=== PATIENT | male | born 1970 | race Caucasian/White ===

== ENCOUNTER 2020-02-03 10:38 | Outpatient (REF) | payer OTHER, SELFPAY ==
--- NOTE | 2020-02-03 11:06 | XR_ITS ---
EXAMINATION: XR LUMBOSACRAL SPINE WITH OBLIQUES CLINICAL INFORMATION: Low back pain COMPARISON: None TECHNIQUE: AP, both oblique, and lateral views of the lumbar spine. Lateral view of the lumbosacral junction. Lateral flexion and extension views. FINDINGS: Normal alignment and lumbar lordosis with mild multilevel degenerative disc disease and mild facet arthrosis at the lower lumbar levels. No fracture. No spondylolysis or spondylolisthesis. No abnormal motion on the flexion and extension views. IMPRESSION: Mild multilevel degenerative disc disease and facet arthrosis.
== END 2020-02-03 10:39 | disposition home or self-care (01) ==
LOC: HO.LABR 10:38
PROVIDERS: PCP Family Medicine; Visit Provider Physical Medicine & Rehabilitation
DX: M47.816 Spondylosis without myelopathy or radiculopathy, lumbar region (principal)
CPT/HCPCS: 72114

== ENCOUNTER 2020-04-07 17:56 | Outpatient (REF) | payer OTHER, SELFPAY ==
--- NOTE | 2020-04-07 17:59 | MR_ITS ---
EXAMINATION: MR KNEE WITHOUT CONTRAST, RIGHT CLINICAL INFORMATION: Fall at work, history of ACL repair, feels clicking with flexion-extension. COMPARISON: Radiograph dated 09/20/2014. TECHNIQUE: MRI of the knee without contrast was performed using routine sequences on a high-field scanner. FINDINGS: MENISCI: Medial Meniscus: There is a high-grade radial component to a complex tear of the posterior horn near the root insertion. This tear is age-indeterminate, potentially chronic. There is a second radial component of the tear near the junction of the posterior horn and body which extends through the inner two thirds of the meniscal cross-section and may be more acute to subacute. Meniscal body is partially extruded. Lateral Meniscus: Posterior horn is diminutive, possibly due to prior partial meniscectomy. The majority of the posterior root insertion appears chronically torn. The attachment to the posterior meniscal femoral ligament remains intact. Meniscal body is partially extruded. The anterior horn of the lateral meniscus is also diminutive, potentially related to a chronic tear. LIGAMENTS: Cruciate: There is a large ossific spur at the lateral aspect of the intercondylar notch which produces mass effect upon the few remaining fibers of the ACL graft. These graft fibers are distorted, displaced posteromedially. The graft appears attenuated, likely due to chronic degeneration or partial tearing. PCL is intact. Collateral: Intact. EXTENSOR MECHANISM: Susceptibility artifact around the patellar tendon is likely due to chronic changes of graft harvesting. Patellar tendon is otherwise unremarkable. Quadriceps tendon is normal. ARTICULAR CARTILAGE/BONE: Patellofemoral Compartment: There is a 1.2 x 0.6 cm area of full-thickness chondral fissuring and chondral delamination at the lateral patellar facet near the median ridge with underlying marrow edema and articular cortical irregularity. Additional full-thickness chondral fissuring is present at the medial patellar facet with underlying marrow edema. There are small to moderate-sized marginal osteophytes. No fractures. Trochlear cartilage appears relatively well preserved though there are small to moderate-sized trochlear osteophytes. Medial Compartment: Small marginal osteophytes. Minimal chondral surface irregularity is present at the posterior weightbearing surface of the medial femoral condyle. Lateral Compartment: Moderate-sized marginal osteophytes. High-grade cartilage loss is present at the posterior half of the lateral tibial plateau with articular cortical irregularity, subchondral edema, and subchondral cystic change. More [id number] chondral thinning is present at the anterior half of the lateral tibial plateau. There is [id number] generalized chondral thinning at the posterior weightbearing surface of the lateral femoral condyle. JOINT FLUID AND BURSAE: Small joint effusion. A 7 x 4 x 3 mm loose body is present in the medial recess of the patellofemoral compartment. MR/MR knee RT wo con IMPRESSION: 1. Complex tear of the posterior horn of the medial meniscus with a more chronic-appearing radial component to the root insertion and a more acute-appearing component at the junction of the posterior horn and body. 2. Chronic changes of prior partial lateral meniscectomy with significant meniscal degeneration at the posterior horn. 3. Posterior bowing of the remaining, thinned intact fibers of the ACL graft due to an osseous spur at the intercondylar notch. Thinning of the graft may be due to chronic partial tearing or chronic ligamentous degeneration. 4. Moderate lateral compartment osteoarthritis. 5. Mild patellofemoral compartment osteoarthritis with full-thickness chondral fissuring at the patella. 6. Small joint effusion.
== END 2020-04-07 17:57 | disposition home or self-care (01) ==
LOC: HO.MRI 17:56
PROVIDERS: Visit Provider Nurse Practitioner Women's Health
DX: Z91.81 History of falling (principal)
CPT/HCPCS: 73721

== ENCOUNTER 2020-11-01 12:51 | Outpatient (REF) | payer OTHER, SELFPAY | END 2020-11-01 12:52 | disposition home or self-care (01) | LOC: HO.WFDLNP 12:51 | PROVIDERS: Visit Provider Family Medicine | DX: Z20.822 Contact with and (suspected) exposure to COVID-19 (principal); R05 Cough | CPT/HCPCS: U0003; U0005 ==

== ENCOUNTER 2020-11-25 08:32 | Outpatient (REF) | payer OTHER, SELFPAY ==
[2020-11-25 09:45] LABS: Alanine Aminotransferase 26 U/L (0-40); Albumin Level 4.6 g/dL (3.5-5.0); Alkaline Phosphatase 53 U/L (39-117); Anion Gap 11 (12-20); Aspartate Amino Transferase 25 U/L (5-37); Bilirubin Total 0.8 mg/dL (0.0-1.0); Blood Urea Nitrogen 14 mg/dL (9-16); Calcium 9.3 mg/dL (8.4-10.2); Carbon Dioxide 28 mmol/L (22-29); Chloride 104 mmol/L (96-108); Estimated Glomerular Filt Rate > 60; Glucose Random 104 mg/dL (60-115); Potassium 4.1 mmol/L (3.3-5.1); Sodium 139 mmol/L (135-145); Total Protein 7.2 g/dL (6.5-8.0)
[2020-11-25 10:11] LABS: TSH reflex Free T4 1.66 uIU/mL (0.32-4.0)
== END 2020-11-25 08:33 | disposition home or self-care (01) ==
LOC: HO.LAB 08:32
PROVIDERS: PCP Family Medicine; Visit Provider Family Medicine
DX: Z00.00 Encounter for general adult medical examination without abnormal findings (principal); M62.838 Other muscle spasm
CPT/HCPCS: 36415; 80053; 84443

== ENCOUNTER 2020-11-28 14:14 | Outpatient (REF) | payer OTHER, SELFPAY | END 2020-11-28 14:15 | disposition home or self-care (01) | LOC: HO.LNP 14:14 | PROVIDERS: Visit Provider Hospitalist | DX: Z20.822 Contact with and (suspected) exposure to COVID-19 (principal) | CPT/HCPCS: U0003; U0005 ==

== ENCOUNTER 2020-12-07 06:04 | Outpatient (REF) | payer OTHER, SELFPAY ==
--- NOTE | ~2020-12-07 | XR_ITS ---
EXAMINATION: XR SHOULDER, RIGHT CLINICAL INFORMATION: Right shoulder pain. COMPARISON: Most recent right shoulder radiographs dated 06/30/2014. TECHNIQUE: AP, scapular Y, and axillary views of the right shoulder. FINDINGS: Moderate acromioclavicular marginal osteophytes. No glenohumeral joint space or marginal osteophytes. No osseous erosion. No abnormal soft tissue calcification. XR/XR shoulder RT min 2V IMPRESSION: Moderate acromioclavicular osteoarthritic, slightly progressed.
== END 2020-12-07 06:05 | disposition home or self-care (01) ==
LOC: HO.HOSX 06:04
PROVIDERS: Visit Provider Physician Assistant
DX: M75.101 Unspecified rotator cuff tear or rupture of right shoulder, not specified as traumatic (principal); M75.21 Bicipital tendinitis, right shoulder; Z87.891 Personal history of nicotine dependence
CPT/HCPCS: 20610; 73030; J1040

== ENCOUNTER → 2020-12-21 14:49 | Outpatient (BNVA) | payer OTHER, SELFPAY | PROVIDERS: PCP Family Medicine; Visit Provider Physician Assistant ==

== ENCOUNTER → 2020-12-30 11:16 | Outpatient (BNVA) | payer OTHER, SELFPAY | PROVIDERS: PCP Family Medicine; Referring Provider Family Medicine; Visit Provider Internal Medicine Gastroenterology ==

== ENCOUNTER 2021-01-10 10:00 | Outpatient (RCR) | payer OTHER, SELFPAY ==
--- NOTE | 2020-12-21 14:58 | MHC.PT.EP ---
[facility] [place] Office [place] Office [place] Office [address] [phone] F: [phone] F: [phone] F: [phone] F: [phone] Physical Therapy Plan of Care Date of Evaluation: Date of Surgery: N/A Diagnosis: Biceps tendinitis of right shoulder Painful arc syndrome of right shoulder Assessment: Pt is a motivated 50yo M who presents to PT with R shoulder pain. Pt presents with current impairments in pain, ROM, strength, soft tissue restrictions, and posture. He experiences the most pain with R shoulder ABD and IR. He is limited functionally by reaching forward and to the side, reaching behind his back, ADLs, and sleeping. He is an excellent candidate for skilled PT services to address current impairments and facilitate return to PLOF. Frequency and Duration: The patient will be seen 2x/week for 4 weeks Short Term Goals: Pt will be I with HEP to promote self management of symptoms Pt will improve shoulder flexion, ABD, and IR by 5 degrees Nursing Home Goals: Pt will demonstrate full, pain-free ROM throughout R shoulder Pt will perform overhead ADLs without pain or compensation Pt will demonstrate improvements as evidenced by statistically significant improvement in SPADI outcome measure Treatment Plan: Modalities to reduce pain, spasms and effusion. Manual therapy to restore motion and function. Therapeutic exercise to improve strength and flexibility. Neuromuscular re-education for posture and balance. Therapeutic activities to return to functional activities of daily living. Electronically signed by: Cailin Del Angel, PT, DPT Please sign and return to therapist. Thank you for your referral.
--- NOTE | 2021-01-12 15:29 | MHC.PT.DC ---
[facility] [place] Office [place] Office [place] Office [address] [phone] F: [phone] F: [phone] F: [phone] F: [phone] Physical Therapy Discharge Report Diagnosis: Biceps tendinitis of right shoulder Painful arc syndrome of right shoulder Date of Surgery: N/A Date of Evaluation: 12/21/20 Date of Discharge: 01/12/21 Treatments to Date: 6 Cancellations to Date: No Shows to Date: Discharge Status: Achieved Goals Improved Function Independent with HEP Discharge Summary: Pt has with full, pain-free ROM throughout R shoulder and has also improved his strength in R shoulder. He has improved his SPADI outcome measure to 22/130. He has reached his STGs and LTGs. He is I with HEP and is being D/C from skilled PT services. Pt was provided with updated, printed copy of HEP and theraband. Pt reports no further questions or concerns for PT at this time. Electronically signed by: Cailin Del Angel, PT, DPT Please sign and return to therapist. Thank you for your referral.
== END 2021-01-12 15:29 | disposition home or self-care (01) ==
LOC: HO.PT 10:00
PROVIDERS: PCP Family Medicine; Visit Provider Physician Assistant
DX: M75.21 Bicipital tendinitis, right shoulder (principal); M75.101 Unspecified rotator cuff tear or rupture of right shoulder, not specified as traumatic
CPT/HCPCS: 97110; 97161; 97530

== ENCOUNTER 2021-01-18 08:45 | Outpatient (REF) | payer OTHER, SELFPAY ==
[2021-01-18 10:36] LABS: Alanine Aminotransferase 21 U/L (0-40); Albumin Level 4.6 g/dL (3.5-5.0); Alkaline Phosphatase 61 U/L (39-117); Anion Gap 11 (12-20); Aspartate Amino Transferase 25 U/L (5-37); Bilirubin Total 0.5 mg/dL (0.0-1.0); Blood Urea Nitrogen 12 mg/dL (9-16); Calcium 9.4 mg/dL (8.4-10.2); Carbon Dioxide 28 mmol/L (22-29); Chloride 106 mmol/L (96-108); Cholesterol 217 mg/dL; Estimated Glomerular Filt Rate > 60; Glucose Fasting 102 mg/dL (60-99); HDL Cholesterol 39 mg/dL; LDL Cholesterol Calculated 106 mg/dl; Potassium 4.2 mmol/L (3.3-5.1); Sodium 141 mmol/L (135-145); Triglycerides 362 mg/dL
[2021-01-18 10:57] LABS: TSH reflex Free T4 1.67 uIU/mL (0.32-4.0)
== END 2021-01-18 08:46 | disposition home or self-care (01) ==
LOC: HO.LAB 08:45
PROVIDERS: PCP Family Medicine; Visit Provider Family Medicine
DX: Z00.00 Encounter for general adult medical examination without abnormal findings (principal)
CPT/HCPCS: 36415; 80053; 80061; 84443

== ENCOUNTER → 2021-02-09 09:52 | Outpatient (BNVA) | payer OTHER, SELFPAY | PROVIDERS: PCP Family Medicine; Referring Provider Family Medicine; Visit Provider Surgery ==

== ENCOUNTER 2021-02-16 08:09 | Day surgery (SDC) | payer OTHER, SELFPAY ==
[2021-02-10 13:57] VITALS: BMI 25.7
--- NOTE | 2021-02-15 09:52 | P.CONAN_ITS ---
Documented by User: Jovita Birmingham NP 02/15/21 10:03 HPI - Anesthesia Eval Consult details Narrative: 50yo M for Upper Endoscopy and Colonoscopy [facility] Active Problems Active Problems: All Active Problems (Updated 02/10/21 @ 13:43 by Mireya Benton, HEMALATHA) Pressure sensation in left ear (Acute) Exposure to COVID-19 virus (Acute) Laboratory examination ordered as part of a routine general medical examination (Acute) Right knee pain (Acute) Medial collateral ligament sprain of knee (Acute) Tear of medial collateral ligament of knee (Acute) Acute meniscal tear of right knee (Acute) Right shoulder pain (Acute) Elevated blood pressure reading (Acute) Cough (Acute) Neoplasm of uncertain behavior (Acute) Right shoulder pain (Acute) Bloating (Acute) Abdominal pain (Acute) Screening for colon cancer (Acute) Muscle spasm (Acute) Exposure to COVID-19 virus (Acute) Dizziness (Acute) Biceps tendinitis of right shoulder (Acute) Painful arc syndrome of right shoulder (Acute) Tendonitis of shoulder, right (Acute) Earache (Acute) Mixed hyperlipidemia (Acute) Skin tag (Acute) IBS (irritable bowel syndrome) (Acute) Umbilical hernia (Acute) Elevated fasting blood sugar (Acute) Hyperlipidemia (Acute) H/O hernia repair (Acute) History of laparotomy (Acute) Chronic back pain (Acute) Borderline diabetes (Acute) Past Medical History Medical History Borderline diabetes Chronic back pain Elevated cholesterol IBS (irritable bowel syndrome) Family History Family History Maternal Uncle Skin cancer Surgical History Surgical History H/O hernia repair History of laparotomy History of reconstruction of anterior cruciate ligament tear Hx of lithotripsy Social History Social History Housing: House Patient Tobacco Use Status: Former Tobacco user e-Cigarette/Vaping Use: Never Used Advance Directives Information Provided: Yes (informational brochure mailed) Advance Directives on File: No service: No Current occupational status: employed 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 Meds Allergies Allergy/AdvReac Type Severity Reaction Status Date / Time Fish Containing Products AdvReac Intermediate nausea Verified 02/10/21 13:44 Home Medications Medication Instructions Recorded Confirmed Last Taken Type ascorbate calcium (vitamin C) 500 500 mg PO DAILY 02/16/20 02/10/21 Unknown History mg tablet glucosamine sulfate 2KCl 1,000 mg 1,000 mg PO BID 02/16/20 02/10/21 Unknown History tablet (Glucosamine Relief) ibuprofen 200 mg capsule 400 mg PO Q8H 02/16/20 02/10/21 Unknown History cyclobenzaprine 5 mg tablet 5 mg PO DAILY 12/23/20 02/10/21 Unknown History Exam Exam Date and Time: February 15, 2021 0952 Height,Weight and Vital Signs: Height 5 ft 10 in Weight 81.193 kg Pertinent Lab Results Pertinent Lab Results: Laboratory Tests 01/06/19 01/18/21 09:45 08:58 WBC 7.4 Hgb 16.7 Hct 46.5 Plt Count 188 Sodium 141 Potassium 4.2 Chloride 106 Carbon Dioxide 28 BUN 12 Creatinine 1.05 Assessment and Plan Assessment Anesthesia Assessment: Chart Reviewed Documented by User: Jeanne Veras MD 02/16/21 08:49 PMFSH Past Medical History Medical History Borderline diabetes Chronic back pain Elevated cholesterol IBS (irritable bowel syndrome) Functional capacity: independent ambulation Family History Family History Maternal Uncle Skin cancer Family history of problems with anesthesia: No Surgical History Surgical History H/O hernia repair History of laparotomy History of reconstruction of anterior cruciate ligament tear Hx of lithotripsy History of Problems with Anesthesia: No Social History Social History Housing: House Patient Tobacco Use Status: Former Tobacco user e-Cigarette/Vaping Use: Never Used Advance Directives Information Provided: Yes (informational brochure mailed) Advance Directives on File: No service: No Current occupational status: employed 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 Meds Allergies Allergy/AdvReac Type Severity Reaction Status Date / Time Fish Containing Products AdvReac Intermediate nausea Verified 02/10/21 13:44 Home Medications Medication Instructions Recorded Confirmed Last Taken Type ascorbate calcium (vitamin C) 500 500 mg PO DAILY 02/16/20 02/10/21 Unknown History mg tablet glucosamine sulfate 2KCl 1,000 mg 1,000 mg PO BID 02/16/20 02/10/21 Unknown History tablet (Glucosamine Relief) ibuprofen 200 mg capsule 400 mg PO Q8H 02/16/20 02/10/21 Unknown History cyclobenzaprine 5 mg tablet 5 mg PO DAILY 12/23/20 02/10/21 Unknown History Exam Airway Mallampati Class: II TM Dist: >3cm Neck ROM: Full Heart: RRR Lungs: CTA Assessment and Plan Final Anesthetic Review Family History of Problems with Anesthesia: No History of Problems with Anesthesia: No
--- NOTE | 2021-02-16 08:21 | MHC.SHP ---
Pre-Procedural Eval Section A Date of Service: 02/16/21 Section B Chief Complaint: LUQ Pain Relevant Family History (Specify if Yes): No Relevant Social History: None Present Medications: see Short Stay Collaborative assessment Medical History: Significant History (Borderline diabetes Chronic back pain Elevated cholesterol IBS (irritable bowel syndrome)) History of Previous Operations: Relevant previous surgery/procedure and date(s) (H/O hernia repair History of laparotomy History of reconstruction of anterior cruciate ligament tear Hx of lithotripsy) Allergies: Allergies Allergy/AdvReac Type Severity Reaction Status Date / Time Fish Containing Products AdvReac Intermediate nausea Verified 02/10/21 13:44 Review of Systems Sugical H&P ROS: Negative: Constitution, Cardiovascular, Respiratory, Neurological, Psychiatric, Hem-Onc, Allergic/Immunologic, Gastrointestinal, Genitourinary, Musculoskeletal, Integumentary, Endocrine and Eyes/Ears/Nose/Throat Exam Surgical H&P Exam: Normal: HEENT, Normal: Heart, Normal: Lungs, Normal: Extremities, Normal: Abdomen, Normal: Skin and Normal: Neurological Plan Diagnosis/Plan: Unchanged I have reviewed the history and physical and performed a pertinent physical examination on my patient. No changes have occurred unless specified.
[2021-02-16 08:36] VITALS: BP 143/79; PULSE 63; RESP 16; TEMP 36.8; O2SAT 98
--- NOTE | 2021-02-16 09:12 | PM.OP ---
Brief Operative Note Date of Service: 02/16/21 Pre-op diagnosis: colon screening and LUQ pain Post-op diagnosis: same Procedure: see op note Surgeon: Mau Nunez MD Anesthesia: MAC Was an Box Printing Machine Operator used for this Procedure?: No Estimated blood loss (mL): 0 Condition: stable Disposition: PACU
--- NOTE | 2021-02-16 09:12 | W.PM.OPN ---
Operative Note Operative Note Date of Service: 02/16/21 Narrative: Operative Information Procedure Description: EGD, Colonoscopy FLEXIBLE TRANSORAL UPPER GASTROINTESTINAL ENDOSCOPY AND COLONOSCOPY PROCEDURE NOTE UPPER ENDOSCOPY Consent: Indications for the procedure and potential complications of bleeding, perforation, reaction to medications and missed diagnosis were discussed with the patient and informed consent was obtained. Instrument: Olympus GIF H 190 J mid size upper endoscope Monitoring: Vital signs and clinical assessment, continuous EKG monitoring, Pulse oximetry, Carbon Dioxide monitoring and blood pressure monitoring were done throughout the procedure. Procedure: The patient was placed in the left lateral decubitis position and pre-procedure medications were administered and a bite block was placed. The endoscope was inserted into the mouth and advanced under direct vision to the third part of duodenum. A careful inspection was made as the upper endoscope was withdrawn including a retroflexed examination of the proximal stomach; Findings and interventions are described below. Findings: Larynx:normal Esophagus: GE junction at 42 cm, diaphragm hiatus at 42 cm, mild esophagitis --bx taken from GEJ and random esophagus Stomach: Patchy erythema. Biopsies were obtained. Grade 2 flap valve on retroflexed examination of the cardia. Seemed to be reduced gastric motility. Duodenum: mild to moderate bulbar duodenitis, bx taken Intervention: Biopsies as noted above COLONOSCOPY Instrument: Olympus variable stiffness pediatric scope 190L Colonoscopy Monitoring: Vital signs and clinical assessment, continuous EKG monitoring, Pulse oximetry, Carbon Dioxide monitoring and blood pressure monitoring were done throughout the procedure. Colon withdrawal time was 15 minutes. Procedure: The patient was placed in the left lateral decubitis position and pre-procedure medications were administered. After a digital rectal examination of the ano-rectum, the video colonoscope was inserted into the rectum and advanced through the colon to the cecum/TI. The colonoscope was slowly withdrawn in a retrograde panoramic fashion and the colon mucosa was carefully examined including a retroflexed view of the rectum. Findings and interventions are described below. Procedure Difficulty: easy Findings: Terminal Ileum-normal Cecum:normal Ascending Colon: normal Transverse Colon -normal Descending Colon:normal Sigmoid Colon: normal Rectum: Retroflexion with small internal hemorrhoids, grade I Anorectum - normal Colon preparation: [place] Bowel Preparation Scale Right colon; 1 Transverse colon: 2 Left colon; 2 (0 = Unprepared colon segment with mucosa not seen due to solid stool that cannot be cleared. 1 = Portion of mucosa of the colon segment seen, but other areas of the colon segment not well seen due to staining, residual stool and/or opaque liquid. 2 = Minor amount of residual staining, small fragments of stool and/or opaque liquid, but mucosa of colon segment seen well. 3 = Entire mucosa of colon segment seen well with no residual staining, small fragments of stool or opaque liquid) Impression and Post Procedure Diagnosis: Endoscopy Findings: gastritis duodenitis esophagitis Colonoscopy Findings: internal hemorrhoids Plan: Await Pathology results Repeat Colonoscopy in 1-2 years or earlier if clinically indicated, confirm prep instructions next time, might need 2 d prep High fiber diet leaflet avoid straining at stool, epsom salts and sitz bath, anusol supps or cream Above findings were reviewed with the patient and relevant handouts were provided if indicated.
[2021-02-16 09:45] VITALS: BP 119/69; PULSE 65; RESP 16; TEMP 36.2; O2SAT 100
[2021-02-16 10:00] VITALS: BP 132/82; PULSE 60; RESP 20; TEMP 36.2; O2SAT 100
--- NOTE | 2021-02-16 10:45 | HO.POSTANES ---
Post Anesthesia Evaluation Post Anesthesia Evaluation Vital Signs: Vital Signs Temp Pulse Resp BP Pulse Ox 02/16/21 10:00 97.1 F 60 20 132/82 100 02/16/21 09:45 97.1 F 65 16 119/69 100 02/16/21 08:36 98.2 F 63 16 143/79 H 98 Anesthesia: Monitored Mental Status: Awake Pain Control: Satisfactory Nausea/Vomiting: None Hydration: Adequate Anesthesia-Related Issues: No Anes. Related Issues
== END 2021-02-16 10:38 ==
LOC: HO.SSS 08:09
PROVIDERS: PCP Family Medicine; Visit Provider Internal Medicine Gastroenterology
PROC: (CPT 45378; principal; 2021-02-16 09:20)
DX: Z12.11 Encounter for screening for malignant neoplasm of colon (principal); K64.0 First degree hemorrhoids; K58.9 Irritable bowel syndrome, unspecified; R10.12 Left upper quadrant pain; K29.70 Gastritis, unspecified, without bleeding; K29.80 Duodenitis without bleeding; K20.90 Esophagitis, unspecified without bleeding; K44.9 Diaphragmatic hernia without obstruction or gangrene; R73.03 Prediabetes; Z79.899 Other long term (current) drug therapy
CPT/HCPCS: 45378; 43239; 88305; 88342

== ENCOUNTER 2021-03-15 08:10 | Outpatient (REF) | payer OTHER, SELFPAY ==
[2021-03-15 08:45] LABS: Estimated Average Glucose 108 mg/dL; Hemoglobin A1c % 5.4 %
[2021-03-15 09:04] LABS: Cholesterol 201 mg/dL; HDL Cholesterol 40 mg/dL; LDL Cholesterol Calculated 118 mg/dl; Triglycerides 218 mg/dL
== END 2021-03-15 08:11 | disposition home or self-care (01) ==
LOC: HO.LAB 08:10
PROVIDERS: PCP Family Medicine; Visit Provider Family Medicine
DX: Z00.00 Encounter for general adult medical examination without abnormal findings (principal); R73.01 Impaired fasting glucose
CPT/HCPCS: 36415; 80061; 83036

== ENCOUNTER → 2021-05-15 09:52 | Outpatient (BNVA) | payer OTHER, SELFPAY | PROVIDERS: PCP Family Medicine; Referring Provider Family Medicine; Visit Provider Internal Medicine Gastroenterology ==

== ENCOUNTER 2021-05-16 05:58 | Day surgery (SDC) | payer OTHER, SELFPAY ==
[2021-05-10 09:11] VITALS: BMI 25.1
--- NOTE | 2021-05-15 09:15 | HO.ANESPROP2 ---
Documented by User: Jovita Birmingham NP 05/15/21 09:17 HPI - Anesthesia Eval Consult details Narrative: 50yo M for Hernia Repair Umbilical with Mesh PMFSH Active Problems Active Problems: All Active Problems (Updated 05/10/21 @ 09:10 by Mireya Benton RN) Pressure sensation in left ear (Acute) Exposure to COVID-19 virus (Acute) Laboratory examination ordered as part of a routine general medical examination (Acute) Right knee pain (Acute) Medial collateral ligament sprain of knee (Acute) Tear of medial collateral ligament of knee (Acute) Acute meniscal tear of right knee (Acute) Right shoulder pain (Acute) Elevated blood pressure reading (Acute) Cough (Acute) Neoplasm of uncertain behavior (Acute) Right shoulder pain (Acute) Bloating (Acute) Abdominal pain (Acute) Screening for colon cancer (Acute) Muscle spasm (Acute) Exposure to COVID-19 virus (Acute) Dizziness (Acute) Biceps tendinitis of right shoulder (Acute) Painful arc syndrome of right shoulder (Acute) Tendonitis of shoulder, right (Acute) Earache (Acute) Mixed hyperlipidemia (Acute) Skin tag (Acute) IBS (irritable bowel syndrome) (Acute) Umbilical hernia (Acute) Elevated fasting blood sugar (Acute) Hyperlipidemia (Acute) Anxiety (Acute) H/O hernia repair (Acute) History of laparotomy (Acute) Chronic back pain (Acute) Borderline diabetes (Acute) Past Medical History Medical History Borderline diabetes Chronic back pain COVID-19 vaccine series completed Elevated cholesterol IBS (irritable bowel syndrome) Renal calculi Family History Family History Maternal Uncle Skin cancer Other Mental health disorder Substance use disorder Family history of problems with anesthesia: No Surgical History Surgical History H/O hernia repair History of esophagogastroduodenoscopy (EGD) History of laparotomy History of reconstruction of anterior cruciate ligament tear Hx of colonoscopy Hx of lithotripsy History of Problems with Anesthesia: No Social History Social History Housing: House Patient Tobacco Use Status: Former Tobacco user Quit Date: age 19 Tobacco use type: Cigarette e-Cigarette/Vaping Use: Never Used Substance Use Type Other:: clean since age 19 Have you been hit, kicked, punched, or otherwise hurt by someone within the past year? 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 Meds Allergies Allergy/AdvReac Type Severity Reaction Status Date / Time Fish Containing Products AdvReac Intermediate nausea Verified 05/15/21 09:58 Home Medications Medication Instructions Recorded Confirmed Last Taken Type ascorbate calcium (vitamin C) 500 500 mg PO DAILY 02/16/20 05/10/21 Unknown History mg tablet cyclobenzaprine 5 mg tablet 5 mg PO BEDTIME 12/23/20 05/10/21 Unknown History ibuprofen 400 mg tablet 400 mg PO Q8H PRN 05/10/21 05/10/21 Unknown History Exam Exam Date and Time: May 15, 2021 0915 Height,Weight and Vital Signs: Height 5 ft 10 in Weight 79.379 kg Pertinent Lab Results Pertinent Lab Results: Laboratory Tests 01/06/19 01/18/21 09:45 08:58 WBC 7.4 Hgb 16.7 Hct 46.5 Plt Count 188 Sodium 141 Potassium 4.2 Chloride 106 Carbon Dioxide 28 BUN 12 Creatinine 1.05 Assessment and Plan Assessment Anesthesia Assessment: Chart Reviewed Final Anesthetic Review Family History of Problems with Anesthesia: No History of Problems with Anesthesia: No Documented by User: Odalis Hoffman MD 05/16/21 07:35 [facility] Past Medical History Medical History Borderline diabetes Chronic back pain COVID-19 vaccine series completed Elevated cholesterol IBS (irritable bowel syndrome) Renal calculi Family History Family History Maternal Uncle Skin cancer Other Mental health disorder Substance use disorder Surgical History Surgical History H/O hernia repair History of esophagogastroduodenoscopy (EGD) History of laparotomy History of reconstruction of anterior cruciate ligament tear Hx of colonoscopy Hx of lithotripsy Social History Social History Housing: House Patient Tobacco Use Status: Former Tobacco user Quit Date: age 19 Tobacco use type: Cigarette e-Cigarette/Vaping Use: Never Used Substance Use Type Other:: clean since age 19 Have you been hit, kicked, punched, or otherwise hurt by someone within the past year? 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 Meds Allergies Allergy/AdvReac Type Severity Reaction Status Date / Time Fish Containing Products AdvReac Intermediate nausea Verified 05/15/21 09:58 Home Medications Medication Instructions Recorded Confirmed Last Taken Type ascorbate calcium (vitamin C) 500 500 mg PO DAILY 02/16/20 05/10/21 Unknown History mg tablet cyclobenzaprine 5 mg tablet 5 mg PO BEDTIME 12/23/20 05/10/21 Unknown History ibuprofen 400 mg tablet 400 mg PO Q8H PRN 05/10/21 05/10/21 Unknown History Exam Height,Weight and Vital Signs: Height 5 ft 10 in Weight 79.379 kg Vital Signs Temp Pulse Resp BP Pulse Ox 05/16/21 06:38 98.3 F 51 16 136/73 96 Airway Mallampati Class: II TM Dist: >3cm Neck ROM: Full Loose/Missing/Broken Teeth: No Heart: RRR Lungs: CTAB Assessment and Plan Assessment Anesthesia Assessment: Anesthesia Plan Discussed Final Anesthetic Review NPO: Yes ASA Class: II Final Preanesthetic Review: No Changes in Pt Med Stat, Meds/Allgs Chart Reviewed, Consent Obtained/Reviewed and Anes Risks/Benef Reviewed Patient Risk: Low Procedure Risk: Low Assessment/Block/Sedation in SS: Assess/Block/Sedation-SS Anesthetic Plan Anesthetic Plan: GA Disposition: Standard PACU
[2021-05-16] VITALS (10 sets, daily range): BP systolic 136–169; BP diastolic 73–97; PULSE 49–69; RESP 12–16; TEMP 36.2–36.8; O2SAT 96–100
[2021-05-16] MEDS: Lactated Ringers 1,000 ML 100 ML IVCONT (06:52)
--- NOTE | 2021-05-16 07:22 | MHC.SHP ---
Pre-Procedural Eval Section A Date of Service: 05/16/21 Section B Chief Complaint: Umbilical Hernia Details of Present Illness: has reducible mass on umbilicus, previous laparotomy Relevant Family History (Specify if Yes): No Relevant Social History: None Present Medications: see Short Stay Collaborative assessment Medical History: Significant History (hyperlipidemia, IBS, chronic back pain) History of Previous Operations: Relevant previous surgery/procedure and date(s) (hx of laparotomy for appendicitis ?30 years ago) Allergies: Allergies Allergy/AdvReac Type Severity Reaction Status Date / Time Fish Containing Products AdvReac Intermediate nausea Verified 05/15/21 09:58 Review of Systems Sugical H&P ROS: Negative: Constitution, Cardiovascular, Respiratory, Neurological, Psychiatric, Hem-Onc, Allergic/Immunologic, Gastrointestinal, Genitourinary, Musculoskeletal, Integumentary, Endocrine and Eyes/Ears/Nose/Throat Exam Surgical H&P Exam: Normal: HEENT, Normal: Heart, Normal: Lungs, Normal: Extremities, Normal: Skin and Normal: Neurological and Significant Findings: Abdomen (umbilical hernia, about 2 cm) Plan Diagnosis/Plan: Unchanged I have reviewed the history and physical and performed a pertinent physical examination on my patient. No changes have occurred unless specified.
--- NOTE | 2021-05-16 08:08 | P.OP_ITS ---
Operative Note Operative Note Date of Service: 05/16/21 Narrative: Preop diagnosis: Umbilical hernia Postop diagnosis: Umbilical hernia Procedure: Repair of umbilical hernia with Ventralex mesh Surgeon: Hardeep Erazo MD 1st political science research assistant: JIMMY Augustine The patientIs a 50-year-old male with a reducible mass on the umbilicus consistent with an umbilical hernia. he understood the technique of repair with mesh placement. He was aware of the risks, benefits, and alternatives. He was brought to the operating room placed supine on the table under general anesthesia via laryngeal mask airway. The abdomen was prepped and draped in the usual sterile fashion. A surgical time-out was done. The patient received cefazolin 2 g IV preoperatively . I infiltrated the planned line of incision with lidocaine 1%.I made A short supraumbilical transverse curvilinear incision using blade 15. This was carried down through the full-thickness of the skin subcutaneous fat. I then visualized hernia sac with omental fat. I sharply dissected this off of the umbilicus usin g Metzenbaum scissors. I proceeded to continue to lift the umbilicus off of the rest of the fascia and the hernia. The hernia was isolated and I proceeded to continue to dissect this down to the fascial defect. There was a lot of omental fat with a narrow neck. I continued to divide adhesions from the fascial edge to the omental fat. After the hernia contents were completely freed from the fascia, I was able to reduce this completely through the defect. I applied a Serafin clamp on the fascia. I dissected the underside of the fascia to create a pocket for the mesh. This was done using gentle blunt dissection the finger as well as Metzenbaum scissors under visualization. Once we had good margins for the mesh, I proceeded to position a small-sized Ventralex mesh and this was f lattened under the defect. I then proceeded to secure the Prolene straps of the mesh to the fascia with Prolene 2 sutures. I closed the fascial defect with a figure-eight Maxon 1 stitch. I irrigated. I tacked the umbilicus back to the fascia to recreate the dimple using Dexon 3-0 stitch. The incision was then closed with subcuticular running Dexon 4-0 stitch. I infiltrated the area with Marcaine .5% for postop analgesia. Dressings were applied and the procedure was completed . The patient tolerated procedure well. There were no complications noted. Initial and final counts of sponges and instruments were correct. Estimated blood loss was minimal. The patient was extubated without difficulty and transferred to the recovery room with stable vital signs.
[2021-05-16] MEDS: Acetaminophen 325 MG TABLET 650 MG PO (08:40)
[2021-05-16] MEDS: oxyCODONE HCl Immed Release 5 MG TABLET PO (08:40)
[2021-05-16] MEDS: fentaNYL citrate/PF 100 MCG/2 ML VIAL 25 MCG IVPUSH ×2 (08:45→08:54)
[2021-05-16] MEDS: Ketorolac Tromethamine 15 MG/ML VIAL IVPUSH (08:48)
== END 2021-05-16 09:55 | disposition home or self-care (01) ==
PROVIDERS: PCP Family Medicine; Visit Provider Surgery
PROC: (CPT 49585; principal; 2021-05-16 07:30)
DX: K42.9 Umbilical hernia without obstruction or gangrene (principal); R73.03 Prediabetes; G89.29 Other chronic pain; M54.9 Dorsalgia, unspecified; Z79.899 Other long term (current) drug therapy; Z87.891 Personal history of nicotine dependence
CPT/HCPCS: 49585; C1781; J0690; J1100; J1885; J2250; J2405; J3010

== ENCOUNTER → 2021-05-29 09:48 | Outpatient (BNVA) | payer OTHER, SELFPAY | PROVIDERS: PCP Family Medicine; Referring Provider Family Medicine; Visit Provider Surgery ==

== ENCOUNTER 2021-07-18 08:56 | Outpatient (REF) | payer OTHER, SELFPAY ==
[2021-07-18 10:51] LABS: Alanine Aminotransferase 31 U/L (0-40); Albumin Level 4.5 g/dL (3.5-5.0); Alkaline Phosphatase 69 U/L (39-117); Anion Gap 11 (12-20); Aspartate Amino Transferase 26 U/L (5-37); Bilirubin Total 0.6 mg/dL (0.0-1.0); Blood Urea Nitrogen 11 mg/dL (9-16); Calcium 9.5 mg/dL (8.4-10.2); Carbon Dioxide 29 mmol/L (22-29); Chloride 104 mmol/L (96-108); Cholesterol 214 mg/dL; Estimated Glomerular Filt Rate > 60; Glucose Fasting 117 mg/dL (60-99); HDL Cholesterol 37 mg/dL; Potassium 4.4 mmol/L (3.3-5.1); Sodium 140 mmol/L (135-145); Total Protein 7.3 g/dL (6.5-8.0); Triglycerides 495 mg/dL
== END 2021-07-18 08:57 | disposition home or self-care (01) ==
LOC: HO.LAB 08:56
PROVIDERS: PCP Family Medicine; Visit Provider Family Medicine
DX: Z00.00 Encounter for general adult medical examination without abnormal findings (principal)
CPT/HCPCS: 36415; 80053; 80061

== ENCOUNTER 2021-08-17 15:44 | Outpatient (REF) | payer OTHER, SELFPAY ==
--- NOTE | ~2021-08-17 | MR_ITS ---
EXAMINATION: MR CERVICAL SPINE WITHOUT CONTRAST MR THORACIC SPINE WITHOUT CONTRAST CLINICAL INFORMATION: Back pain. Cervical radiculopathy. COMPARISON: CT cervical spine dated 08/04/2016. TECHNIQUE: Multiplanar, multisequential imaging of the cervical and thoracic spine was performed without contrast. FINDINGS: CERVICAL SPINE: Vertebral Bodies And Paraspinal Soft Tissues: There is a mild reversal of the normal cervical lordosis. Right lateral endplate edematous changes noted at the C6-C7 level with a retrosubluxation and zbpqpeik-yo-hkyjfy disc space narrowing. There are no compression fractures. Mild anterolisthesis noted at the C3-C4 level. There is a mild rightward curvature of the cervical spine as well. The paraspinal soft tissues are normal. The vertebral artery flow voids are maintained. The lung apices are clear. Cervicomedullary Junction And Visualized Posterior Fossa: The craniovertebral junction and imaged portions of the brain parenchyma appear normal. No cord signal abnormality or syrinx is seen. Spinal Levels: C2-C3: Small central disc protrusion and annular fissure. No central canal stenosis or foraminal narrowing. Mild right-sided facet arthropathy. C3-C4: Mild anterolisthesis and central disc protrusion mildly impressing upon the ventral cord with hypertrophic facet arthropathy. Cutopaqi-od-izcjpc foraminal narrowing, worse on the right side. No central canal stenosis. C4-C5: Very small central disc protrusion. No central canal stenosis or foraminal narrowing. C5-C6: Small central disc protrusion and mild disc bulge with endplate spurring. No central canal stenosis. Llvgpvik-ly-dxeoiw left foraminal narrowing and iusi-ql-fhifnkav right foraminal encroachment. C6-C7: Loss of disc height with mixed chronic and edematous endplate changes lateralized more so to the right side. Disc-osteophyte complex without central canal stenosis. Severe foraminal narrowing, worse on the right side. C7-T1: No disc pathology. No central canal stenosis or foraminal encroachment. THORACIC SPINE: Minimal endplate edematous changes noted anteriorly at the T7-T8 level. There are no compression fractures. There is moderate disc space narrowing at the T8-T9 level with endplate Schmorl's nodes. No cord signal abnormality or syrinx is seen. There is no central canal stenosis. Small right paracentral disc protrusion visible at the T5-T6 level. There is a tiny left paracentral disc protrusion at the T7-T8 level. Shallow right paracentral disc protrusions noted at the T9-T10 and T10-T11 levels. The neural foramina are patent. No significant facet arthropathy is seen. The imaged portions of the lungs are grossly clear. The paraspinal soft tissues are unremarkable. MR/MR cervical spine wo con IMPRESSION: CERVICAL SPINE: Reversal of the normal cervical lordosis and mild rightward curvature of the cervical spine. Multilevel spondylitic changes with small disc protrusions. No central canal stenosis. Bdfwzmbw-ed-grkcnb foraminal narrowing, more so on the right side at the C3-C4 level. Significant left foraminal narrowing at the C5-C6 level with a small central disc protrusion. Mixed chronic and edematous endplate changes at the C6-C7 level with a disc-osteophyte complex and severe foraminal narrowing, more so on the right side. THORACIC SPINE: Mild spondylosis. No cord signal abnormality. Small disc protrusions in the mid to lower thoracic spine. No central canal stenosis.
--- NOTE | ~2021-08-17 | MR_ITS ---
EXAMINATION: MR CERVICAL SPINE WITHOUT CONTRAST MR THORACIC SPINE WITHOUT CONTRAST CLINICAL INFORMATION: Back pain. Cervical radiculopathy. COMPARISON: CT cervical spine dated 08/04/2016. TECHNIQUE: Multiplanar, multisequential imaging of the cervical and thoracic spine was performed without contrast. FINDINGS: CERVICAL SPINE: Vertebral Bodies And Paraspinal Soft Tissues: There is a mild reversal of the normal cervical lordosis. Right lateral endplate edematous changes noted at the C6-C7 level with a retrosubluxation and pkkxgjri-df-ndvdql disc space narrowing. There are no compression fractures. Mild anterolisthesis noted at the C3-C4 level. There is a mild rightward curvature of the cervical spine as well. The paraspinal soft tissues are normal. The vertebral artery flow voids are maintained. The lung apices are clear. Cervicomedullary Junction And Visualized Posterior Fossa: The craniovertebral junction and imaged portions of the brain parenchyma appear normal. No cord signal abnormality or syrinx is seen. Spinal Levels: C2-C3: Small central disc protrusion and annular fissure. No central canal stenosis or foraminal narrowing. Mild right-sided facet arthropathy. C3-C4: Mild anterolisthesis and central disc protrusion mildly impressing upon the ventral cord with hypertrophic facet arthropathy. Pvmnkgof-mt-qxpbbi foraminal narrowing, worse on the right side. No central canal stenosis. C4-C5: Very small central disc protrusion. No central canal stenosis or foraminal narrowing. C5-C6: Small central disc protrusion and mild disc bulge with endplate spurring. No central canal stenosis. Uwqyrlel-dz-ndvhpp left foraminal narrowing and iffs-qt-noobqroo right foraminal encroachment. C6-C7: Loss of disc height with mixed chronic and edematous endplate changes lateralized more so to the right side. Disc-osteophyte complex without central canal stenosis. Severe foraminal narrowing, worse on the right side. C7-T1: No disc pathology. No central canal stenosis or foraminal encroachment. THORACIC SPINE: Minimal endplate edematous changes noted anteriorly at the T7-T8 level. There are no compression fractures. There is moderate disc space narrowing at the T8-T9 level with endplate Schmorl's nodes. No cord signal abnormality or syrinx is seen. There is no central canal stenosis. Small right paracentral disc protrusion visible at the T5-T6 level. There is a tiny left paracentral disc protrusion at the T7-T8 level. Shallow right paracentral disc protrusions noted at the T9-T10 and T10-T11 levels. The neural foramina are patent. No significant facet arthropathy is seen. The imaged portions of the lungs are grossly clear. The paraspinal soft tissues are unremarkable. MR/MR thoracic spine wo con IMPRESSION: CERVICAL SPINE: Reversal of the normal cervical lordosis and mild rightward curvature of the cervical spine. Multilevel spondylitic changes with small disc protrusions. No central canal stenosis. Tmrepsyf-vl-vydwvs foraminal narrowing, more so on the right side at the C3-C4 level. Significant left foraminal narrowing at the C5-C6 level with a small central disc protrusion. Mixed chronic and edematous endplate changes at the C6-C7 level with a disc-osteophyte complex and severe foraminal narrowing, more so on the right side. THORACIC SPINE: Mild spondylosis. No cord signal abnormality. Small disc protrusions in the mid to lower thoracic spine. No central canal stenosis.
== END 2021-08-17 15:45 | disposition home or self-care (01) ==
LOC: HO.MRI 15:44
PROVIDERS: Visit Provider Family Medicine
DX: M54.12 Radiculopathy, cervical region (principal); M54.9 Dorsalgia, unspecified
CPT/HCPCS: 72141; 72146

== ENCOUNTER 2021-09-04 08:43 | Outpatient (REF) | payer OTHER, SELFPAY ==
[2021-09-04 10:05] LABS: Cholesterol 161 mg/dL; HDL Cholesterol 37 mg/dL; LDL Cholesterol Calculated 76 mg/dl; Triglycerides 241 mg/dL
[2021-09-04 10:08] LABS: Estimated Average Glucose 111 mg/dL; Hemoglobin A1c % 5.5 %
== END 2021-09-04 08:44 | disposition home or self-care (01) ==
LOC: HO.LAB 08:43
PROVIDERS: PCP Family Medicine; Visit Provider Family Medicine
DX: Z00.00 Encounter for general adult medical examination without abnormal findings (principal); R73.01 Impaired fasting glucose
CPT/HCPCS: 36415; 80061; 83036

== ENCOUNTER → 2021-10-25 10:56 | Outpatient (BNVA) | payer OTHER, SELFPAY | PROVIDERS: PCP Family Medicine; Visit Provider Dietitian, Registered | DX: E78.5 Hyperlipidemia, unspecified (principal); R73.01 Impaired fasting glucose | CPT/HCPCS: 97802 ==

== ENCOUNTER 2021-11-27 09:00 | Outpatient (RCR) | payer OTHER, SELFPAY | END 2021-11-27 10:00 | disposition home or self-care (01) | LOC: HO.PT 09:00 | PROVIDERS: PCP Family Medicine; Visit Provider Physician Assistant Surgical | DX: M50.30 Other cervical disc degeneration, unspecified cervical region (principal) | CPT/HCPCS: 97035; 97110; 97112; 97140; 97161 ==

== ENCOUNTER 2021-12-08 08:23 | Outpatient (REF) | payer OTHER, SELFPAY ==
[2021-12-08 09:12] LABS: Cholesterol 176 mg/dL; HDL Cholesterol 45 mg/dL; LDL Cholesterol Calculated 105 mg/dl; Triglycerides 134 mg/dL
== END 2021-12-08 08:24 | disposition home or self-care (01) ==
LOC: HO.LAB 08:23
PROVIDERS: PCP Family Medicine; Visit Provider Family Medicine
DX: Z00.00 Encounter for general adult medical examination without abnormal findings (principal); E78.2 Mixed hyperlipidemia
CPT/HCPCS: 36415; 80061

== ENCOUNTER → 2021-12-11 11:26 | Outpatient (BNVA) | payer OTHER, SELFPAY | PROVIDERS: PCP Family Medicine; Visit Provider Dietitian, Registered | DX: R73.03 Prediabetes (principal); R73.01 Impaired fasting glucose; E78.5 Hyperlipidemia, unspecified | CPT/HCPCS: 97803 ==

== ENCOUNTER 2021-12-27 10:35 | Outpatient (REF) | payer OTHER, SELFPAY ==
[2021-12-27 10:56] LABS: COVID-19 Test Positive (Negative); IDNOW Serial# 16C4AD1C
== END 2021-12-27 10:36 | disposition home or self-care (01) ==
LOC: HO.LAB 10:35
PROVIDERS: Visit Provider Internal Medicine
DX: Z20.822 Contact with and (suspected) exposure to COVID-19 (principal)
CPT/HCPCS: 87635; C9803

== ENCOUNTER 2022-01-10 09:35 | Outpatient (REF) | payer OTHER, SELFPAY ==
[2022-01-10 10:02] LABS: COVID-19 Test Positive (Negative); IDNOW Serial# 16C4AD1C
== END 2022-01-10 09:36 | disposition home or self-care (01) ==
LOC: HO.LAB 09:35
PROVIDERS: Visit Provider Internal Medicine
DX: Z20.822 Contact with and (suspected) exposure to COVID-19 (principal)
CPT/HCPCS: 87635; C9803

== ENCOUNTER 2022-09-11 08:12 | Outpatient (REF) | payer OTHER, SELFPAY ==
[2022-09-11 09:31] LABS: Alanine Aminotransferase 39 U/L (0-40); Albumin Level 4.6 g/dL (3.5-5.0); Alkaline Phosphatase 56 U/L (39-117); Anion Gap 11 (12-20); Aspartate Amino Transferase 36 U/L (5-37); Bilirubin Total 0.6 mg/dL (0.0-1.0); Blood Urea Nitrogen 18 mg/dL (9-16); Calcium 9.6 mg/dL (8.4-10.2); Carbon Dioxide 30 mmol/L (22-29); Chloride 104 mmol/L (96-108); Cholesterol 139 mg/dL; Estimated Glomerular Filt Rate > 60; Glucose Fasting 91 mg/dL (60-99); HDL Cholesterol 34 mg/dL; LDL Cholesterol Calculated 80 mg/dl; Potassium 4.8 mmol/L (3.3-5.1); Sodium 140 mmol/L (135-145); Triglycerides 125 mg/dL
[2022-09-11 09:50] LABS: TSH reflex Free T4 1.34 uIU/mL (0.32-4.0)
[2022-09-11 10:40] LABS: Appearance Urine Clear; Color Urine Yellow; Glucose Urine UA Negative (Negative); Leukocyte Esterase Urine Negative (Negative); Nitrite Urine Negative (Negative); PH 5.5 (5.0-9.0); Specific Gravity - Urine 1.025 (1.005-1.025); Urine Blood Negative (Negative); Urine Ketones Negative (Negative); Urine Protein Negative (Neg-Trace)
== END 2022-09-11 08:13 | disposition home or self-care (01) ==
LOC: HO.LAB 08:12
PROVIDERS: PCP Family Medicine; Visit Provider Family Medicine
DX: Z00.00 Encounter for general adult medical examination without abnormal findings (principal); Z12.5 Encounter for screening for malignant neoplasm of prostate
CPT/HCPCS: 36415; 80053; 80061; 81003; 84153; 84443

== ENCOUNTER 2022-12-18 08:25 | Outpatient (REF) | payer OTHER, SELFPAY ==
[2022-12-18 09:27] LABS: Anion Gap 10 (12-20); Blood Urea Nitrogen 18 mg/dL (9-16); Calcium 10.1 mg/dL (8.4-10.2); Carbon Dioxide 28 mmol/L (22-29); Chloride 107 mmol/L (96-108); Cholesterol 172 mg/dL (<200); Estimated Glomerular Filt Rate > 60; Glucose Fasting 107 mg/dL (60-99); HDL Cholesterol 39 mg/dL (>40); LDL Cholesterol Calculated 85 mg/dL (<100); Potassium 4.4 mmol/L (3.3-5.1); Sodium 141 mmol/L (135-145); Triglycerides 241 mg/dL (<150)
== END 2022-12-18 08:26 | disposition home or self-care (01) ==
LOC: HO.LAB 08:25
PROVIDERS: PCP Family Medicine; Visit Provider Family Medicine
DX: Z00.00 Encounter for general adult medical examination without abnormal findings (principal); E78.2 Mixed hyperlipidemia
CPT/HCPCS: 36415; 80048; 80061

== ENCOUNTER 2022-12-21 14:22 | Outpatient (AMB) | payer OTHER, SELFPAY ==
[2022-12-21 14:29] VITALS: BP 132/78; PULSE 50; O2SAT 98; BMI 26.4
--- NOTE | 2022-12-21 14:29 | MHC.PC.OV ---
Vital Signs 12/21/22 14:29 Height 5 ft 10 in Weight 184 lb 2 oz BMI 26.4 BP 132/78 Blood Pressure Location Lt brachial Position Sitting Pulse 50 Pulse Source Pulse Oximeter Pulse Oximetry (%) 98 Oxygen Delivery Method Room Air Intake Visit Reasons: f/u hyperlipidemia Intake Note: Patient is here to follow up on his cholesterol Allergies Fish Containing Products Adverse Reaction (Intermediate, Verified 12/21/22 14:32) nausea Tobacco use date assessed: 12/21/22 Dental Screening Dental Screen Date: 12/21/22 Did you have a dental visit in the last 12 months?: Yes Did you have a dental problem in the last 6 months where you did not have access to dental care?: No Was dental information given to patient?: Patient has dentist HPI f/u hyperlipidemia HPI Details 52 y/o male presents to f/u mixed hyperlipidemia. Triglycerides were well controlled but patient injured himself and was laid out for about a month. He says that he had many dietary indiscretions and was not exercising much. Triglycerides are significantly elevated again. Also fasting blood sugar is high. Labs were drawn 12/18/22. Reviewed labs with pt. Triglycerides worsened from 125 to 241. TC 172. LDL 85. HDL low at 39. Elevated fasting glucose of 107. Pt reports insurance has now covered fenofibrate and is now on fenofibrate. He reports his diet has been off though he notes he is trying to improve this along with exercise. [facility] Medical History Borderline diabetes Chronic back pain COVID-19 vaccine series completed Elevated cholesterol IBS (irritable bowel syndrome) Renal calculi Surgical History H/O hernia repair History of esophagogastroduodenoscopy (EGD) History of laparotomy History of reconstruction of anterior cruciate ligament tear History of umbilical hernia repair (~05/16/21) Hx of colonoscopy Hx of lithotripsy Family History Maternal Uncle Skin cancer Other Mental health disorder Substance use disorder Social History Housing: House Patient Tobacco Use Status: Former Tobacco user Quit Date: age 19 Tobacco use type: Cigarette e-Cigarette/Vaping Use: Never Used Second Hand Smoke Exposure: No service: No Current occupational status: employed 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 Dylan Carr, Esperanza Adames, Avery Chin and colleagues, with an educational jessica from [employer]. Review of Systems Const Denies chills, Denies fatigue, Denies fever(s), Denies headache(s) and Denies weakness ENT Denies dizziness and Denies headache(s) Card Denies chest pain, Denies lightheadedness, Denies dyspnea and Denies other (Palpitations) Resp Denies cough, Denies dyspnea, Denies wheezing and Denies other ( shortness of breath) Musc Denies numbness and Denies tingling Neuro Denies dizziness, Denies headache(s), Denies numbness, Denies tingling, Denies paresthesias and Denies weakness Psych Denies anxiety and Denies depression Endo Denies fatigue Aller/Immun Denies wheezing Physical exam (Primary Care) Vital Signs: Last Vital Signs Pulse 50 12/21/22 14:29 BP 132/78 12/21/22 14:29 Pulse Ox 98 12/21/22 14:29 Oxygen Delivery Method Room Air 12/21/22 14:29 BMI result Body Mass Index 26.4 Tobacco/Smoking Status: Tobacco use Status Tobacco use date assessed 12/21/22 12/21/22 14:35 Patient Tobacco Use Status Former Tobacco user 12/21/22 14:32 Tobacco use type Cigarette 12/21/22 14:32 e-Cigarette/Vaping Use Never Used 12/21/22 14:32 Thrive Assessment: Date of Thrive Assessment Date Thrive assessed 05/15/22 12/21/22 14:32 Const General: no acute distress and well developed Nutritional Appearance: well nourished Orientation/consciousness: patient oriented x3 HENMT Head: Yes normocephalic and Yes atraumatic Eyes General: appearance normal, both eyes and all related structures Pupils: Equal, round and reactive pupils present EOM: EOMs intact bilaterally Resp Effort & Inspection: normal respiratory effort Auscultation: clear to auscultation bilaterally Cardio Rate: regular rate Rhythm: regular rhythm Heart sounds: S1 normal heart sound present, S2 normal heart sound present, no gallops, no murmurs and no rubs Neuro General: patient oriented x3 and gait normal Cranial nerves: Yes Equal, round and reactive pupils present Psych Affect: normal affect Results AMB Hemoglobin A1c AMB Hemoglobin A1c 5.9 % Last Edit by Ana Rosa Winkler CMA on 12/21/22 15:27 Assessment and Plan Assessment & Plan (1) Mixed hyperlipidemia: Code(s): E78.2 - Mixed hyperlipidemia Plan: Worsened triglycerides since he injured himself and was unable to exercise significantly and had worsened diet. Continue fenofibrate Continue to work at a diet low in saturated fats and cholesterol. Also work at healthy diet low in sugars and starches (2) Low HDL (under 40): Code(s): E78.6 - Lipoprotein deficiency Plan: HDL still a bit low. Encouraged increase in exercise/activity (3) Elevated fasting blood sugar: Code(s): R73.01 - Impaired fasting glucose Plan: Fasting blood sugar is high a can. A1cs in the recent past have been in the normal range. A1c today 5.9%; pre diabetes range (4) Chronic back pain: Code(s): M54.9 - Dorsalgia, unspecified; G89.29 - Other chronic pain Plan: Chronic/recurrent back pain with flare ups Recent of flare up and has ongoing pain. Will give him a course of cyclobenzaprine. Again reiterated that this is not intended to be a chronic pain medication. (5) Pre-diabetes: Code(s): R73.03 - Prediabetes Plan: As above He is working on a diet lower in sugars and starches Orders: Orders AMB Hemoglobin A1c Today Z13.9 - Encounter for screening, unspecified Medications: New cyclobenzaprine 10 mg PO BEDTIME 15 days PRN 15 tabs 0RF muscle spasm Coding Level of Care Code Est Pt Level 4 (79608) Diagnoses Mixed hyperlipidemia E78.2 Low HDL (under 40) E78.6 Elevated fasting blood sugar R73.01 Chronic back pain M54.9; G89.29 Pre-diabetes R73.03
== END 2022-12-21 16:08 | disposition home or self-care (01) ==
PROVIDERS: Visit Provider Family Medicine
DX: E78.2 Mixed hyperlipidemia (principal); R73.03 Prediabetes; E78.6 Lipoprotein deficiency; R73.01 Impaired fasting glucose; M54.9 Dorsalgia, unspecified; G89.29 Other chronic pain
CPT/HCPCS: 83036; 99214

== ENCOUNTER 2023-02-18 11:25 | Outpatient (AMB) | payer OTHER, SELFPAY ==
[2023-02-18 12:42] VITALS: BP 130/70; PULSE 65; TEMP 36.1; O2SAT 97; BMI 26.7
--- NOTE | 2023-02-18 12:42 | MHC.OFFWIV ---
Intake Vital Signs 02/18/23 12:42 Height 5 ft 10 in Weight 186 lb BMI 26.7 BP 130/70 Blood Pressure Location Rt brachial Position Sitting Pulse 65 Pulse Source Pulse Oximeter Temp 97.0 F Temp Source Temporal Artery Scan Pulse Oximetry (%) 97 Oxygen Delivery Method Room Air Intake Visit Reasons: ep back pain on left side Intake Note: pt is here today for back pain on left side Patient Tobacco Use Status: Former Tobacco user Quit Date: age 19 Allergies Fish Containing Products Adverse Reaction (Intermediate, Verified 02/18/23 12:49) nausea Do you need a note to return to daycare/school/sports/work: Yes HPI ep back pain on left side HPI Details Patient is a 52 year old male in for a sick visit for lower left sided back pain. Pt reports he was pulling a box when he felt a sharp pain in his left lower back. States little relief with 300mg Gabapentin and heat. Pain increases based on positioning, with little pain radiating down his left leg. Has history of the same. Onset 02/17/23 [facility] Medical History (Updated 02/18/23 @ 13:58 by CHINTAN Landa) Lower back pain (~01/2023) Renal calculi COVID-19 vaccine series completed IBS (irritable bowel syndrome) Elevated cholesterol Chronic back pain Borderline diabetes Surgical History History of umbilical hernia repair (~05/16/21) Hx of colonoscopy History of esophagogastroduodenoscopy (EGD) Hx of lithotripsy H/O hernia repair History of laparotomy History of reconstruction of anterior cruciate ligament tear Family History Maternal Uncle Skin cancer Other Mental health disorder Substance use disorder Social History Housing: House Patient Tobacco Use Status: Former Tobacco user Quit Date: age 19 Tobacco use type: Cigarette e-Cigarette/Vaping Use: Never Used Second Hand Smoke Exposure: No service: No Current occupational status: employed 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 [facility] [place] per HPI Physical Exam Vital Signs: Last Vital Signs Temp 97.0 F 02/18/23 12:42 Pulse 65 02/18/23 12:42 BP 130/70 02/18/23 12:42 Pulse Ox 97 02/18/23 12:42 Oxygen Delivery Method Room Air 02/18/23 12:42 BMI result Body Mass Index 26.7 Const General: no acute distress Orientation/consciousness: patient oriented x3 Limitations: no limitations Cardio Rate: regular rate Rhythm: regular rhythm Heart sounds: S1 normal heart sound present and S2 normal heart sound present Back/Spine/Pelvis Other: Patient has point tenderness on left lower back in the para-spinal area. No deformities, no bruising, swelling, or erythema. Positive straight leg test. Thoracic/Lumbar Spine: straight leg raise positive Neuro General: patient oriented x3 Assessment & Plan Assessment & Plan (1) Lower back pain: Onset Date: ~01/2023 Code(s): M54.50 - Low back pain, unspecified Qualifiers: Chronicity: acute Back pain laterality: left Sciatica presence: with sciatica Sciatica laterality: sciatica of left side Qualified Code(s): M54.42 - Lumbago with sciatica, left side Plan: Patient will take Tylenol 600 mg Q6 PRN, Salonpas prn, and Cyclobenzaprine 5mg at bedtime. Patient instructed to follow up with his PCP. Educated not to drive while taking Cyclobenzaprine. Plan Coding Level of Care Code Est Pt Level 3 (08412) Diagnoses Acute left-sided low back pain with left-sided sciatica M54.42 Chronicity: acute Back pain laterality: left Sciatica presence: with sciatica Sciatica laterality: sciatica of left side Time Spent (min) 15
== END 2023-02-18 14:21 | disposition home or self-care (01) ==
PROVIDERS: PCP Family Medicine; Visit Provider Nurse Practitioner Primary Care
DX: M54.42 Lumbago with sciatica, left side (principal)
CPT/HCPCS: 99213

== ENCOUNTER 2023-03-20 08:25 | Outpatient (REF) | payer OTHER, SELFPAY ==
[2023-03-20 09:25] LABS: Alanine Aminotransferase 26 U/L (0-40); Albumin Level 4.7 g/dL (3.5-5.0); Alkaline Phosphatase 55 U/L (39-117); Anion Gap 11 (12-20); Aspartate Amino Transferase 27 U/L (5-37); Bilirubin Total 0.9 mg/dL (0.0-1.0); Blood Urea Nitrogen 15 mg/dL (9-16); Calcium 9.6 mg/dL (8.4-10.2); Carbon Dioxide 31 mmol/L (22-29); Chloride 105 mmol/L (96-108); Cholesterol 190 mg/dL (<200); Estimated Glomerular Filt Rate > 60; Glucose Fasting 88 mg/dL (60-99); HDL Cholesterol 40 mg/dL (>40); LDL Cholesterol Calculated 118 mg/dL (<100); Potassium 4.2 mmol/L (3.3-5.1); Sodium 143 mmol/L (135-145); Total Protein 7.6 g/dL (6.5-8.0); Triglycerides 164 mg/dL (<150)
== END 2023-03-20 08:26 | disposition home or self-care (01) ==
LOC: HO.LAB 08:25
PROVIDERS: PCP Family Medicine; Visit Provider Family Medicine
DX: Z00.00 Encounter for general adult medical examination without abnormal findings (principal); R73.03 Prediabetes; E78.5 Hyperlipidemia, unspecified
CPT/HCPCS: 36415; 80053; 80061

== ENCOUNTER 2023-03-25 13:57 | Outpatient (AMB) | payer OTHER, SELFPAY ==
--- NOTE | 2023-03-25 14:09 | A.OFFPC_ITS ---
Vital Signs 03/25/23 14:14 Height 5 ft 10 in Weight 185 lb 2 oz BMI 26.6 BP 126/74 Blood Pressure Location Lt brachial Position Sitting Pulse 66 Pulse Source Pulse Oximeter Pulse Oximetry (%) 99 Oxygen Delivery Method Room Air Intake Visit Reasons: f/u mixed hyperlipidemia Intake Note: Patient is here to follow up on labs, he is concerned about swollen tongue. Allergies Fish Containing Products Adverse Reaction (Intermediate, Verified 03/25/23 14:19) nausea Tobacco use date assessed: 03/25/23 HPI f/u mixed hyperlipidemia HPI Details 52 y/o male presents to f/u hyperlipidem ia and prediabetes. Labs were drawn 03/20/23. Reviewed labs with pt. Triglycerides 164, which improved from 241. TC 190. LDL 118. HDL 40. He reports he is not on any lipid medications. He reports he has improved his diet. Pt reports he has been exercising as well. Last A1c 12/21/22 5.9% - in pre-diabetes range. A1c today 03/25/23 is 5.4%. Pt has concerns about a swollen tongue today. COUNT INCLUDES THE [facility] Medical History Lower back pain (~01/2023) Renal calculi COVID-19 vaccine series completed IBS (irritable bowel syndrome) Elevated cholesterol Chronic back pain Borderline diabetes Surgical History History of umbilical hernia repair (~05/16/21) Hx of colonoscopy History of esophagogastroduodenoscopy (EGD) Hx of lithotripsy H/O hernia repair History of laparotomy History of reconstruction of anterior cruciate ligament tear Family History Maternal Uncle Skin cancer Other Mental health disorder Substance use disorder Housing: House Patient Tobacco Use Status: Former Tobacco user Quit Date: age 19 Tobacco use type: Cigarette e-Cigarette/Vaping Use: Never Used Second Hand Smoke Exposure: No service: No Current occupational status: employed 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 Dylan Carr, Esperanza Adames, Avery Chin and colleagues, with an educational jessica from [email or web address]. Review of Systems Const Denies chills, Denies fatigue, Denies fever(s), Denies headache(s) and Denies w eakness ENT Denies dizziness and Denies headache(s) Card Denies chest pain, Denies lightheadedness, Denies dyspnea and Denies other (Palpitations) Resp Denies cough, Denies dyspnea, Denies wheezing and Denies other ( shortness of breath) Musc Denies numbness and Denies tingling Neuro Denies dizziness, Denies headache(s), Denies numbness, Denies tingling, Denies paresthesias and Denies weakness Psych Denies anxiety and Denies depression Endo Denies fatigue Aller/Immun Denies wheezing Physical exam (Primary Care) Vital Signs: Last Vital Signs Pulse 66 03/25/23 14:14 BP 126/74 03/25/23 14:14 Pulse Ox 99 03/25/23 14:14 Oxygen Delivery Method Room Air 03/25/23 14:14 BMI result Body Mass Index 26.6 Tobacco/Smoking Status: Tobacco use Status Tobacco use date assessed 03/25/23 03/25/23 14:21 Patient Tobacco Use Status Former Tobacco user 03/25/23 14:09 Tobacco use type Cigarette 03/25/23 14:09 e-Cigarette/Vaping Use Never Used 03/25/23 14:09 Thrive Assessment: Date of Thrive Assessment Date Thrive assessed 05/15/22 03/25/23 14:09 Const General: no acute distress and well developed Nutritional Appearance: well nourished Orientation/consciousness: patient oriented x3 HENMT Head: Yes normocephalic and Yes atraumatic Eyes General: appearance normal, both eyes and all related structures Pupils: Equal, round and reactive pupils present EOM: EOMs intact bilaterally Resp Effort & Inspection: normal respiratory effort Auscultation: clear to auscultation bilaterally Cardio Rate: regular rate Rhythm: regular rhythm Heart sounds: S1 normal heart sound present, S2 normal heart sound present, no gallops, no murmurs and no rubs Neuro General: patient oriented x3 and gait normal Cranial nerves: Yes Equal, round and reactive pupils present Psych Affect: normal affect Assessment and Plan Assessment & Plan (1) Mixed hyperlipidemia: Code(s): E78.2 - Mixed hyperlipidemia Plan: Patient?is?no?longer ?taking?fenofibrate?or?gemfibrozil?but?triglycerides?are?significantly?improved. He?has?increased?his?exercise?and?has?changed?his?diet. Continue?exercising?and?improved?diet. Work?at?a?little?bit?of?weight?loss (2) Pre-diabetes: Code(s): R73.03 - Prediabetes Plan: A1c?has?improved?from?5.9%?down?to?5.4%?which?is?back?in?normal?range. Continue?to?work?at?a?diet?low?in?sugars?and?starches Continue?exercise?and?weight?control (3) Lower back pain: Onset Date: ~01/2023 Code(s): M54.50 - Low back pain, unspecified Qualifiers: Back pain laterality: left Chronicity: acute Sciatica laterality: sciatica of left side Sciatica presence: with sciatica Qualified Code(s): M54.42 - Lumbago with sciatica, left side Plan: Improved Continue?exercise Orders: Orders AMB Hemoglobin A1c Today Z13.9 - Encounter for screening, unspecified Coding Level of Care Code Est Pt Level 4 (21097) Diagnoses Mixed hyperlipidemia E78.2 Pre-diabetes R73.03 Acute left-sided low back pain with left-sided sciatica M54.42 Back pain laterality: left Chronicity: acute Sciatica laterality: sciatica of left side Sciatica presence: with sciatica
[2023-03-25 14:14] VITALS: BP 126/74; PULSE 66; O2SAT 99; BMI 26.6
== END 2023-03-25 15:34 | disposition home or self-care (01) ==
PROVIDERS: PCP Family Medicine; Visit Provider Family Medicine
DX: E78.2 Mixed hyperlipidemia (principal); R73.03 Prediabetes; M54.42 Lumbago with sciatica, left side
CPT/HCPCS: 99214

== ENCOUNTER 2023-04-05 11:31 | Outpatient (AMB) | payer OTHER, SELFPAY ==
[2023-04-05 13:06] VITALS: BP 116/60; PULSE 78; TEMP 36.4; O2SAT 98; BMI 26.0
--- NOTE | 2023-04-05 13:06 | AM.OFFWIN_ITS ---
Intake Vital Signs 04/05/23 13:06 Height 5 ft 10 in Weight 181 lb BMI 26.0 BP 116/60 Blood Pressure Location Rt brachial Position Sitting Pulse 78 Pulse Source Pulse Oximeter Temp 97.6 F Temp Source Temporal Artery Scan Pulse Oximetry (%) 98 Oxygen Delivery Method Room Air Intake Visit Reasons: EP, sore throat, left ear pain ([phone]) Intake Note: started saturday Patient Tobacco Use Status: Former Tobacco user Quit Date: age 19 Allergies Fish Containing Products Adverse Reaction (Intermediate, Verified 04/05/23 13:07) nausea Do you need a note to return to daycare/school/sports/work: No HPI HPI Comments History of Present Illness Details This is a 52-year-old male who presents to the office today for sick visit. Patient complaining of viral URI symptoms including sore throat, nasal/sinus congestion, and left ear pain. He reports positive sick contact wi th his cousin, who was positive for COVID-19. Patient is requesting a COVID test. [facility] Medical History Lower back pain (~01/2023) Renal calculi COVID-19 vaccine series completed IBS (irritable bowel syndrome) Elevated cholesterol Chronic back pain Borderline diabetes Surgical History History of umbilical hernia repair (~05/16/21) Hx of colonoscopy History of esophagogastroduodenoscopy (EGD) Hx of lithotripsy H/O hernia repair History of laparotomy History of reconstruction of anterior cruciate ligament tear Family History Maternal Uncle Skin cancer Other Mental health disorder Substance use disorder Social History Housing: House Patient Tobacco Use Status: Former Tobacco user Quit Date: age 19 Tobacco use type: Cigarette e-Cigarette/Vaping Use: Never Used Second Hand Smoke Exposure: No service: No Current occupational status: employed 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 Current occupational exposures/hazards: No Cognitive needs: No Hearing needs: No Vision needs: No Review of Systems Const All systems reviewed & are unremarkable except as noted in HPI and below Reports no additional complaints Eyes Reports no additional complaints ENT Reports no additional complaints Card Reports no additional complaints Resp Reports no additional complaints GI Reports no additional complaints Reports no additional complaints Musc Reports no additional complaints Skin/Breast Reports system reviewed and no additional complaints, except as documented Neuro Reports no additional complaints Psych Reports no additional complaints Endo Reports no additional complaints Corby/Lymph Reports no additional complaints Aller/Immun Reports no additional complaints Physical Exam Const Other: Vital signs reviewed. Constitutional: Non-toxic appearing. No acute distress. Well-developed and well-nourished. HEENT: Normocephalic and atraumatic. Tympanic membranes without erythema, edema, or bulging bilaterally. External auditory canals without erythema or edema bilaterally. Moist mucous membranes. No pharyngeal erythema or exudates. Skin: Warm and dry. No rashes or lesions noted. Neck: Full and painless range of motion. No cervical lymphadenopathy. Cardio: Regular rate. No lower extremity edema. No JVD. Pulmonary: No respiratory distress. No accessory muscle usage. Gastrointestinal: Soft, nontender, and nondistended in all 4 quadrants. Musculoskeletal: Normal range of motion in joints throughout the body. No deformity or other signs of injury. Neuro: Alert and oriented x4. Cranial nerves 2-12 grossly intact. No focal deficits appreciated. Psych: Normal mood and affect. Assessment & Plan Assessment & Plan (1) Viral URI: Code(s): J06.9 - Acute upper respiratory infection, unspecified Plan: This is a 52-year-old male presenting to the office complaining of viral URI symptoms x3 days. Patient reports positive sick contact with his cousin who was positive for COVID-19. He is requesting a COVID-19 test. His vital signs are stable, his physical exam is benign, and he is overall nontoxic appearing. Patient presenting with signs and symptoms most consistent with acute respiratory tract infection. COVID/flu/RSV sent. Patient was reassured that this is a self-limiting illness. Recommended symptomatic management including rest, increased fluids, advil/tylenol for pain/fever, and over the counter throat lozenges/decongestants. Patient advised to follow up here or go to the emergency room for worsening/persistent symptoms. Patient verbalized understanding and is agreeable with the plan. Orders: Orders SARS-CoV2/FLU/RSV Today R09.89 - Other specified symptoms and signs involving the circulatory and respiratory systems Coding Level of Care Code Est Pt Level 3 (89564) Diagnoses Viral URI J06.9
== END 2023-04-05 13:31 | disposition home or self-care (01) ==
PROVIDERS: PCP Family Medicine; Visit Provider Physician Assistant Medical
DX: J06.9 Acute upper respiratory infection, unspecified (principal)
CPT/HCPCS: 99213

== ENCOUNTER 2023-04-05 16:38 | Outpatient (REF) | payer OTHER, SELFPAY ==
[2023-04-05 17:24] LABS: Influenza A PCR NEGATIVE (Negative); Influenza B PCR NEGATIVE (Negative); Resp Syncy Virus RNA Qual PCR NEGATIVE (Negative); SARS COV2 PCR INHOUSE NEGATIVE (Negative)
== END 2023-04-05 16:39 | disposition home or self-care (01) ==
LOC: HO.HMGCLNP 16:38
PROVIDERS: Visit Provider Physician Assistant Medical
DX: Z11.52 Encounter for screening for COVID-19 (principal); Z20.822 Contact with and (suspected) exposure to COVID-19; R09.89 Other specified symptoms and signs involving the circulatory and respiratory systems
CPT/HCPCS: 0241U

== ENCOUNTER 2023-05-20 09:47 | Outpatient (AMB) | payer OTHER, SELFPAY ==
--- NOTE | 2023-05-20 10:00 | MHC.PC.OV ---
Vital Signs 05/20/23 10:04 Height 5 ft 10 in Weight 180 lb BMI 25.8 BP 130/65 Blood Pressure Location Rt brachial Position Sitting Respiration 13 Pulse 54 Pulse Source Pulse Oximeter Temp 97.9 F Temp Source Temporal Artery Scan Pulse Oximetry (%) 98 Oxygen Delivery Method Room Air Intake Visit Reasons: sore throat, blisters in mouth Intake Note: Patient states there are canker sores all over tongue followed by sore throat and cough. [employer] Regist[employer] Required: No Accompanied by: Self / Same As Patient Allergies Fish Containing Products Adverse Reaction (Intermediate, Verified 05/20/23 10:19) nausea Medication List - Last Reconciled 05/20/23 by Cathie Siu CNP gabapentin 300 mg PO BEDTIME 30 days Tobacco use date assessed: 05/20/23 Dental Screening Dental Screen Date: 05/20/23 Did you have a dental visit in the last 12 months?: Yes Did you have a dental problem in the last 6 months where you did not have access to dental care?: No Was dental information given to patient?: Patient has dentist HPI HPI Comments History of Present Illness Details 52-year-old male presents with complaints of sore throat for the past 2 weeks. He reports associated non productive cough, chills, fatigue, and intermittent headaches. Reports subjective fever with sweats 4 days ago. He states that it feels as though his tongue has canker sores. He notes that his was diagnosed with the flu and strep throat 2 days ago. The patient has not had any viral testing for his current symptoms. [facility] Medical History (Updated 05/20/23 @ 10:59 by Smitha Landa MA) Lower back pain (~01/2023) Renal calculi COVID-19 vaccine series completed IBS (irritable bowel syndrome) Elevated cholesterol Chronic back pain Borderline diabetes Surgical History History of umbilical hernia repair (~05/16/21) Hx of colonoscopy History of esophagogastroduodenoscopy (EGD) Hx of lithotripsy H/O hernia repair History of laparotomy History of reconstruction of anterior cruciate ligament tear Family History Maternal Uncle Skin cancer Other Mental health disorder Substance use disorder Social History Housing: House Patient Tobacco Use Status: Former Tobacco user Quit Date: age 19 Tobacco use type: Cigarette e-Cigarette/Vaping Use: Never Used Second Hand Smoke Exposure: No service: No Current occupational status: employed 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 Dylan Carr, Esperanza Adames, Avery Chin and colleagues, with an educational jessica from [employer]. Review of Systems Const Details: Const Denies chills, Denies fatigue, Denies fever(s), Denies headache(s) and Denies weakness ENT Reports as per HPI Card Denies chest pain, Denies lightheadedness, Denies dyspnea and Denies other (Palpitations) Resp Denies cough, Denies dyspnea, Denies wheezing and Denies other ( shortness of breath) GI Denies abdominal pain, Denies melena, Denies hematochezia, Denies change in bowel habits, Denies dyspepsia and Denies nausea Denies hematuria and Denies dysuria Musc Denies abnormal gait, Denies myalgias, Denies arthralgias, Denies numbness and Denies tingling Skin/Breast Denies rash, Denies unusual bruising and Denies wounds Neuro Denies abnormal gait, Denies dizziness, Denies headache(s), Denies memory loss, Denies numbness, Denies Sensory deficit (Neuro), Denies tingling and Denies weakness Psych Denies anxiety, Denies depression, Denies memory loss Endo Denies cold intolerance, Denies fatigue, Denies heat intolerance, Denies polydipsia and Denies polyuria Aller/Immun Denies wheezing Physical exam (Primary Care) Vital Signs: Last Vital Signs Temp 97.9 F 05/20/23 10:04 Pulse 54 05/20/23 10:04 Resp 13 05/20/23 10:04 BP 130/65 05/20/23 10:04 Pulse Ox 98 05/20/23 10:04 Oxygen Delivery Method Room Air 05/20/23 10:04 BMI result Body Mass Index 25.8 Tobacco/Smoking Status: Tobacco use Status Tobacco use date assessed 05/20/23 05/20/23 10:09 Patient Tobacco Use Status Former Tobacco user 05/20/23 10:09 Tobacco use type Cigarette 05/20/23 10:09 e-Cigarette/Vaping Use Never Used 05/20/23 10:09 Thrive Assessment: Date of Thrive Assessment Date Thrive assessed 05/15/22 05/20/23 10:09 Const Other: General: no acute distress and well developed Nutritional Appearance: well nourished Orientation/consciousness: patient oriented x3 HENMT Head is normocephalic Bilateral ear canal and TM are normal Nasal turbinates and oropharynx are pink and moist Sinuses are nontender with palpation No auricular or cervical lymphadenopathy Eyes General: appearance normal, both eyes and all related structures Pupils: Equal, round and reactive pupils present EOM: EOMs intact bilaterally Resp Effort & Inspection: normal respiratory effort Auscultation: clear to auscultation bilaterally Cardio Rate: regular rate Rhythm: regular rhythm Heart sounds: S1 normal heart sound present, S2 normal heart sound present, no gallops, no murmurs and no rubs GI Palpation (GI): No Abdominal aortic bruit present, Soft to palpation, nontender, No hepatosplenomegaly present and No Rebound tenderness present Auscultation: normal bowel sounds General: Yes no CVA tenderness Back/Spine/Pelvis Back: no CVA tenderness Cervical Spine: cervical ROM normal and No Cervical spine tenderness Thoracic/Lumbar Spine: thoraco-lumbar ROM normal, No pain with thoraco-lumbar ROM, No thoracic spinal tenderness and No lumbar spinal tenderness Extrem General: Yes normal to inspection, No edema and No calf tenderness Skin General: warm and dry. Normal skin color. Normal skin turgor Neuro General: patient oriented x3, gait normal and no focal neuro deficit Cranial nerves: Yes Equal, round and reactive pupils present Cognition (Neuro): normal cognition Gait exam (Neuro): Normal gait present Sensory Exam: No Sensory deficit (Neuro) Psych Appearance: grossly normal Affect: normal affect Attitude: cooperative Thought process: Normal thought process present Results AMB Rapid Strep AMB Rapid Strep Negative Last Edit by Smitha Landa MA on 05/20/23 11:04 Results Reviewed Results Reviewed: Laboratory Last Values Strep Scn Rapid Clinic Negative 05/20/23 10:57 Assessment and Plan Assessment & Plan (1) Viral URI: Code(s): J06.9 - Acute upper respiratory infection, unspecified Plan: Likely viral illness though possibly allergies. No exam evidence of bacterial infection Viral illness There is no antibiotic medication for viruses.? They must run their course.? Most average 5-7 days but 7-10 days is not uncommon and up to 14 days is still possible.? A cough is often the last symptom to resolve and this can last for weeks in some cases. Rest Hydrate well -? Drink plenty of fluids.? Especially water. Tylenol or ibuprofen for muscle aches, headache, fever/discomfort Cannot rule out COVID-19/RSV/Flu infection Nasal swab acquired and will be sent to the lab Return for new or worsening symptoms Verbalized understanding and agreed with treatment plan. Orders: Orders AMB Rapid Strep Screen Today Z13.9 - Encounter for screening, unspecified SARS-CoV2/FLU/RSV Today J06.9 - Acute upper respiratory infection, unspecified Coding Level of Care Code Est Pt Level 4 (87924) Diagnoses Viral URI J06.9
[2023-05-20 10:04] VITALS: BP 130/65; PULSE 54; RESP 13; TEMP 36.6; O2SAT 98; BMI 25.8
== END 2023-05-20 11:49 | disposition home or self-care (01) ==
PROVIDERS: PCP Family Medicine; Visit Provider Nurse Practitioner Family
DX: J06.9 Acute upper respiratory infection, unspecified (principal); J02.9 Acute pharyngitis, unspecified
CPT/HCPCS: 87880; 99214

== ENCOUNTER 2023-05-20 10:57 | Outpatient (REF) | payer OTHER, SELFPAY ==
[2023-05-20 15:21] LABS: Influenza A PCR POSITIVE (Negative); Influenza B PCR NEGATIVE (Negative); Resp Syncy Virus RNA Qual PCR NEGATIVE (Negative); SARS COV2 PCR INHOUSE NEGATIVE (Negative)
== END 2023-05-20 10:58 | disposition home or self-care (01) ==
LOC: HO.LAB 10:57
PROVIDERS: Visit Provider Nurse Practitioner Family
DX: Z11.52 Encounter for screening for COVID-19 (principal); J06.9 Acute upper respiratory infection, unspecified
CPT/HCPCS: 0241U

== ENCOUNTER 2023-06-19 14:27 | Outpatient (AMB) | payer OTHER, SELFPAY ==
[2023-06-19 14:31] VITALS: BP 120/78; PULSE 70; O2SAT 97; BMI 25.3
--- NOTE | 2023-06-19 14:31 | A.OFFPC_ITS ---
Vital Signs 06/19/23 14:31 Height 5 ft 10 in Weight 176 lb 6 oz BMI 25.3 BP 120/78 Blood Pressure Location Lt brachial Position Sitting Pulse 70 Pulse Source Pulse Oximeter Pulse Oximetry (%) 97 Oxygen Delivery Method Room Air Intake Visit Reasons: f/u blood pressures and pre-diabetes Intake Note: Patient is here to follow up on blood pressure and pre diabetes. Allergies Fish Containing Products Adverse Reaction (Intermediate, Verified 06/19/23 14:36) nausea Tobacco use date assessed: 05/20/23 HPI f/u blood pressures and pre-diabetes HPI Details 52 y/o male presents to f/u blood pressu res and pre-diabetes. Blood pressure today 120/78. A1c today 06/19/23 is 5.8%. Last A1c had been 5.7%. Pt reports ongoing tooth pain/abscess. PFSH Medical History Lower back pain (~01/2023) Renal calculi COVID-19 vaccine series completed IBS (irritable bowel syndrome) Elevated cholesterol Chronic back pain Borderline diabetes Surgical History History of umbilical hernia repair (~05/16/21) Hx of colonoscopy History of esophagogastroduodenoscopy (EGD) Hx of lithotripsy H/O hernia repair History of laparotomy History of reconstruction of anterior cruciate ligament tear Family History Maternal Uncle Skin cancer Other Mental health disorder Substance use disorder Social History Housing: House Patient Tobacco Use Status: Former Tobacco user Quit Date: age 19 Tobacco use type: Cigarette e-Cigarette/Vaping Use: Never Used Second Hand Smoke Exposure: No service: No Current occupational status: employed 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 1. Little interest or pleasure in doing things: not at all 2. Feeling down, depressed, or hopeless: not at all 3. Trouble falling or staying asleep, or sleeping too much: nearly every day 4. Feeling tired or having little energy: nearly every day 5. Poor appetite or overeating: nearly every day 6. Feeling bad about yourself - or that you are a failure or have let yourself or your family down: not at all 7. Trouble concentrating on things, such as reading the newspaper or watching television: nearly every day 8. Moving or speaking so slowly that other people could have noticed. Or the opposite - being so fidgety or restless that you have been moving around a lot more than usual: not at all 9. Thoughts that you would be better off or of hurting yourself in some way: not at all Total score: 12 Depression Screening Interpretation: Positive Depression Screening Done: Yes Source: Developed by Drs. Dylan Carr, Esperanza Adames, Avery Chin and colleagues, with an educational jessica from [employer]. Thrive Questionnaire Date Thrive assessed: 06/19/23 AUDIT C Alcohol Use Questionnaire (AUDIT-C) 1. How often do you have a drink containing alcohol?: Never 3. How often do you have six or more drinks on one occasion?: Never Total Score: 0 LESLY-7 AMB Questionnaire LESLY-7 Date LESLY - 7 assessed: 06/19/23 Feeling nervous, anxious, or on edge: 1 = Several days Not being able to stop or control worryin = Nearly every day Worrying too much about different things: 3 = Nearly every day Trouble relaxin = Nearly every day Being so restless that it is hard to sit still: 0 = Not at all Becoming easily annoyed or irritable: 3 = Nearly every day Feeling afraid as if something awful might happen: 3 = Nearly every day Total LESLY-7 score (0-4 normal; 5-9 mild; 10-14 moderate; 15-21 severe): 16 Source: Developed by Drs. Dylan Carr, Esperanza Adames, Avery Chin and colleagues, with an educational jessica from [employer]. LESLY-7 Assessment Billing LESLY-7 Assessment Tool: LESLY-7 Assessment 60519 Review of Systems Const Denies chills, Denies fatigue, Denies fever(s), Denies headache(s) and Denies weakness ENT Denies dizziness and Denies headache(s) Card Denies dyspnea Resp Denies cough, Denies dyspnea, Denies wheezing and Denies other (shortness of breath) Musc Denies numbness and Denies tingling Neuro Denies dizziness, Denies headache(s), Denies numbness, Denies tingling and Denies weakness Psych Denies anxiety and Denies depression Endo Denies fatigue Aller/Immun Denies wheezing Physical exam (Primary Care) Vital Signs: Last Vital Signs Pulse 70 06/19/23 14:31 BP 120/78 06/19/23 14:31 Pulse Ox 97 06/19/23 14:31 Oxygen Delivery Method Room Air 06/19/23 14:31 BMI result Body Mass Index 25.3 Tobacco/Smoking Status: Tobacco use Status Tobacco use date assessed 05/20/23 06/19/23 14:37 Patient Tobacco Use Status Former Tobacco user 06/19/23 14:37 Tobacco use type Cigarette 06/19/23 14:37 e-Cigarette/Vaping Use Never Used 06/19/23 14:37 PHQ-9: PHQ-9 Score PHQ-9: Total score 12 06/19/23 14:46 Depression Screening Interpretation: Positive Thrive Assessment: Date of Thrive Assessment Date Thrive assessed 06/19/23 06/19/23 14:46 Const General: well developed; No acute distress Nutritional Appearance: well nourished Orientation/consciousness: patient oriented x3 HENMT Head: Yes normocephalic and Yes atraumatic Eyes General: appearance normal, both eyes and all related structures Pupils: Equal, round and reactive pupils present EOM: EOMs intact bilaterally Resp Effort & Inspection: normal respiratory effort Neuro General: patient oriented x3 and gait normal Cranial nerves: Yes Equal, round and reactive pupils present Psych Affect: normal affect Results AMB Hemoglobin A1c AMB Hemoglobin A1c 5.8 % Last Edit by Ana Rosa Winkler CMA on 06/19/23 14:58 Assessment and Plan Assessment & Plan (1) Pre-diabetes: Code(s): R73.03 - Prediabetes Plan: Mild?increase?in?A1c?to?5.8%.??Pre?diabetes?range Encouraged?improved?diet?low?in?sugars?and?starches (2) Tooth abscess: Code(s): K04.7 - Periapical abscess without sinus Plan: Ongoing?complaints?of?tooth?abscess?or?effusion Patient?say s?his?dentist?sees?effusion?or?swelling?around?roots?of?his?teeth?and?in?gums Will?give?him?a?script?for?penicillin?which?has?helped?in?the?past?and?also?a?sh ort?course?of?prednisone. Warm?saltwater?gargles Follow-up?with?dentist (3) Depression with anxiety: Code(s): F41.8 - Other specified anxiety disorders Orders: Orders Prostate Specific Antigen Scr Today Z12.5 - Encounter for screening for malignant neoplasm of prostate Lipid Panel Today Z00.00 - Encounter for general adult medical examination without abnormal findings UA and rflx microscopic Today Z00.00 - Encounter for general adult medical examination without abnormal findings AMB Hemoglobin A1c Today Z13.9 - Encounter for screening, unspecified Complete Blood Count Auto Diff Today Z00.00 - Encounter for general adult medical examination without abnormal findings Comprehensive [place]. Panel Fast Today Z00.00 - Encounter for general adult medical examination without abnormal findings Microalbumin, Random (w Creat) Today I10 - Essential (primary) hypertension TSH reflex Free T4 Today Z00.00 - Encounter for general adult medical examination without abnormal findings Medications: New prednisone 40 mg (2 x 20 mg) PO DAILY 8 tabs 0RF 4 days Refilled penicillin V potassium 500 mg PO TID 30 tabs 0RF 10 days Coding Level of Care Code Est Pt Level 4 (79191) Diagnoses Pre-diabetes R73.03 Tooth abscess K04.7 Depression with anxiety F41.8 Additional Codes LESLY-7 Assessment Billing - LESLY-7 Assessment Tool: LESLY-7 Assessment 17183 ([id number])
== END 2023-06-19 15:03 | disposition home or self-care (01) ==
PROVIDERS: PCP Family Medicine; Visit Provider Family Medicine
DX: R73.03 Prediabetes (principal); K04.7 Periapical abscess without sinus; F41.8 Other specified anxiety disorders
CPT/HCPCS: 83036; 99214

== ENCOUNTER 2023-07-12 17:07 | Emergency (ER) | payer OTHER, SELFPAY ==
--- NOTE | ~2023-07-12 | CT_ITS ---
CT ANGIOGRAM NECK WITH CONTRAST CT ANGIOGRAM BRAIN WITH CONTRAST CLINICAL INFORMATION: Episode of right arm weakness. COMPARISON: Head CT 08/04/2016. TECHNIQUE: Test bolus sequences followed by intravenous administration 70 mL of Omnipaque 350. Helical imaging was performed in the axial plane from the thoracic inlet to the skull vertex. Delayed postcontrast imaging of the head was also performed. The data was processed at the cardiac cath lab radiology technologist workstation for generation of MIP sequences. Angled MIPs and volume rendered reformatted images were also generated at an offline 3D workstation under concurrent supervision. Stenoses are assessed in accordance with NASCET criteria unless otherwise indicated. This CT examination was performed using dose optimization techniques as appropriate, variously including the following: *Automated exposure control *Adjustment of mA and/or kV according to patient size (this includes techniques or standardized protocols for targeted exams where dose is matched to indication/reason for exam; i.e. extremities or head) *Use of iterative reconstruction technique FINDINGS: BRAIN: [There is no intracranial hemorrhage, hydrocephalus, extra-axial surface collection, midline shift, or other herniation pattern. Martin to white matter differentiation is diffusely maintained without evidence of an evolved acute territorial infarct. The basilar cisterns are preserved. No significant soft tissue abnormality. No acute osseous abnormality. The paranasal sinuses and the mastoid air cells are well aerated.] CERVICAL SOFT TISSUES AND LUNG APICES: Uncovertebral joint spurring and advanced hypertrophic facet arthropathy result in severe right C3-C4 and moderate bilateral C6-C7 bony foraminal stenosis. Imaged upper lungs are clear. No significant soft tissue findings within the neck. NECK CTA: [There is a classic 3 vessel configuration of the aortic arch. Proximal arch vessels are non-stenotic. The left vertebral artery is dominant. No significant ostial stenosis is visualized on either side. Both vertebral arteries are widely patent throughout their extracranial cervical course. Both common and internal carotid arteries are normal in course and caliber.] BRAIN CTA: [There is normal opacification of major intracranial arteries. No focal flow-limiting stenosis nor discrete proximal large artery occlusion. No aneurysm. Timing of the contrast bolus allows assessment of the major dural venous sinuses, which all opacify normally] CT/CT angio head neck IMPRESSION: - No acute intracranial findings. - No acute arterial occlusions and no significant arterial stenoses within the head or neck. - Uncovertebral joint spurring and advanced hypertrophic facet arthropathy result in severe right C3-C4 and moderate bilateral C6-C7 bony foraminal stenosis.
--- NOTE | ~2023-07-12 | CT_ITS ---
EXAMINATION: CT HEAD WITHOUT CONTRAST CLINICAL INFORMATION: Right sided numbness. COMPARISON: CT head dated 08/04/2016. TECHNIQUE: Contiguous axial imaging was performed from the skull base to vertex without intravenous administration of contrast. This CT examination was performed using dose optimization techniques as appropriate, variously including the following: *Automated exposure control *Adjustment of mA and/or kV according to patient size (this includes techniques or standardized protocols for targeted exams where dose is matched to indication/reason for exam; i.e. extremities or head) *Use of iterative reconstruction technique DLP: 741 mGy-cm FINDINGS: There is no intracranial hemorrhage. There is no evidence of acute/subacute cerebral or cerebellar infarction. There is no midline shift, mass effect, or extra-axial fluid collection. The ventricles are normal in size and configuration. The orbits are symmetric and within normal limits. The calvarium is intact. The mastoid air cells are well aerated. Visualized paranasal sinuses are clear. CT/CT head/brain wo IV con IMPRESSION: No acute intracranial pathology.
--- NOTE | 2023-07-12 17:17 | ED_ITS ---
HPI - General Adult General Chief complaint: Stroke Stated complaint: ?Stroke Time Seen by Provider: 07/12/23 17:17 History of Present Illness HPI narrative: The patient is a 52-year-old male who says that at around 3 or 3:30PM he was home at his apartment. He was alone at the time. He was in his kitchen. He started to feel that there was a sense of weakness and loss of function of the right arm. He instantly became very anxious and collapsed onto the floor. He got up and thought about what was happening and decided he needed to come to the hospital. After about 5 minutes strength in his arm started to recover but he continued to have a significant sense of something being not quite right on the right side of his body mostly in the right arm. He says that he was talking to himself during the episode because he was so anxious. He does not think that he had any difficulty speaking. The patient has never had an episode like this before. No significant headache. The patient says that he has been trying to adjust his lifestyle recently. He believes that he is a prediabetic and he may have elevated cholesterol as well. He is extremely nervous and feels that he has been sweating. The patient has been having a lot of problems with a sensation of left facial pain over the last couple of months. He is seen his dentist a lot recently also saw an ENT doctor recently. He has been on a few courses of antibiotics and also on steroids. He took a 1st dose of a Medrol Dosepak today arrived by an ENT physician. Related Data Home Medications Medication Instructions Recorded Confirmed penicillin V potassium 500 mg 500 mg PO TID 06/28/23 tablet Previous Rx's Medication Instructions Recorded gabapentin 300 mg capsule 300 mg PO BEDTIME 30 days #30 caps 02/27/23 metronidazole 500 mg tablet 500 mg PO Q8H 7 days #21 tabs 06/28/23 Allergies Allergy/AdvReac Type Severity Reaction Status Date / Time Fish Containing Products AdvReac Intermediate nausea Verified 06/28/23 16:54 Review of Systems 2 Review of Systems: Yes all other systems are reviewed and are negative [facility] Past Medical History Medical History Lower back pain (~01/2023) Renal calculi COVID-19 vaccine series completed IBS (irritable bowel syndrome) Elevated cholesterol Chronic back pain Borderline diabetes Surgical History History of umbilical hernia repair (~05/16/21) Hx of colonoscopy History of esophagogastroduodenoscopy (EGD) Hx of lithotripsy H/O hernia repair History of laparotomy History of reconstruction of anterior cruciate ligament tear Family History Family History Maternal Uncle Skin cancer Other Mental health disorder Substance use disorder Social History Social History Housing: House Alcohol intake: former Patient Tobacco Use Status: Former Tobacco user Quit Date: age 19 Tobacco use type: Cigarette Smoked in Last 30 Days: No e-Cigarette/Vaping Use: Never Used Second Hand Smoke Exposure: No Use of substances other than those prescribed or required for medical reasons: No Advance Directives: No Advance Directives Information Provided: No service: No Current occupational status: employed 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 He looks as if he has ordinarily a fairly fit and healthy looking 52-year-old. He is very anxious affect. He does not have an obvious neurological deficit. HENMT Other: Face is symmetrical. Tongue is midline. Eyes Other: Pupils are round equal, extraocular movements are intact, lateral gaze is intact bilaterally. Visual odell are intact to confrontation bilaterally. Neck Other: No JVD, no adenopathy Resp Effort & Inspection: normal respiratory effort Auscultation: clear to auscultation bilaterally Cardio Rate: regular rate Rhythm: regular rhythm Heart sounds: S1 normal heart sound present and S2 normal heart sound present GI Other: Abdomen is soft and nontender Skin Other: The patient was mildly sweaty. Skin was otherwise unremarkable Neuro Other: The patient is awake and alert. He is oriented and appropriate. He has an anxious affect. Lateral gaze is intact. Visual odell are intact. The face is symmetrical. Speech is normal. Strength is 5/5 in all 4 extremities. There is no pronator drift. Finger-nose is normal bilaterally although he does the right arm much more slowly than the left arm. Heel-chen is normal bilaterally. Gait is steady. The patient has an NIH stroke scale of 0. Extrem Other: No peripheral edema Medications Administered Discontinued Medications Generic Name Dose Route Start Last Admin Trade Name Mac PRN Reason Stop Dose Admin Aspirin 325 mg 07/12/23 20:44 07/12/23 21:09 Aspirin 325 Mg Tablet PO 07/12/23 20:45 325 mg ONCE ONE Administration Sodium Chloride 1,000 mls @ 999 mls/hr 07/12/23 17:30 07/12/23 19:06 Ns IV 07/12/23 18:30 Infused .Q1H1M ASIF Infusion Iohexol 100 ml 07/12/23 19:11 07/12/23 19:11 Iohexol 350 Mg/Ml 100 Ml Infus..Btl IV 07/12/23 19:12 70 ml ONCE ONE Administration Medical Decision Making Medical Decision Making [facility] Narrative: The patient is a 52-year-old male who comes to the hospital by private vehicle after having had an episode of right arm weakness at home. The description of the episode is complicated by what the patient describes as a lot of anxiety associated with it. He says that his right arm felt weak but then he collapsed to the ground because he was so anxious about what happened. He did not injure himself. He does not think he had any difficulty speaking during the episode of right arm weakness because he says he was talking to himself of the time and he hurt his voice and it sounded normal. By the time he arrived here he did not have any objective findings of a neurological deficit. The patient's description of the event certainly suggest the possibility of a TIA manifested by right arm weakness. He has a negative noncontrast head CT. He had a CT angio of the head and neck that shows no obvious vascular disease. There is some arthritis in his neck. His EKG is unremarkable and shows normal sinus rhythm. The patient was offered hospitalization for workup for may have been a TIA. The patient does not wish to be hospitalized. I explained that if this episode is a TIA or possible stroke. He indicated he really did not wish to be hospitalized. I reviewed his ABCD2 score of 3 with the patient and the risk of possible stroke in the short term. He was very clear that he did not wish to be hospitalized and that he would follow up as an outpatient. The patient was therefore given an aspirin and advised to take baby aspirin until he follows up with his PCP. The also advised to return if he was worse. Lab Data 07/12/23 17:32 07/12/23 17:32 Labs: Lab Results 07/12/23 07/12/23 Range/Units 17:23 17:32 WBC 6.3 (4.8-10.8) X10*3/uL RBC 5.37 (4.60-5.80) X10*6/uL Hgb 16.3 (14.0-18.0) g/dl Hct 45.4 (42.0-52.0) % MCV 84.5 (80.0-98.0) fL MCH 30.4 (27.0-33.0) pg MCHC 35.9 (31.0-36.0) g/dl RDW 13.4 (11.0-16.0) % Plt Count 204 (160-400) X10*3/uL MPV 10.2 (9.4-12.4) fL Immature Gran % (Auto) 0.3 (0.0-0.4) % Neut % (Auto) 84.4 H (45-73) % Lymph % (Auto) 13.9 L (20-40) % [place] % (Auto) 0.9 L (2-11) % Eos % (Auto) 0.0 (0-4) % Baso % (Auto) 0.5 (0-2) % Lymph # (Auto) 0.9 L (1.2-4.9) X10*3/uL [place] # (Auto) 0.1 (0.1-1.2) X10*3/uL Eos # (Auto) 0.0 (0.0-0.4) X10*3/uL Baso # (Auto) 0.0 (0.0-0.2) X10*3/uL Abs Immat Gran (auto) 0.02 (0.00-0.03) X10*3/uL Absolute Neuts (auto) 5.4 (2.0-8.3) x10*3/uL Absolute Nucleated RBC 0.000 (0.0-0.012) X10*3/uL Nucleated RBC % (auto) 0.0 (0.0-0.2) /100WBC Sodium 140 (135-145) mmol/L Potassium 4.4 (3.3-5.1) mmol/L Chloride 103 (96-108) mmol/L Carbon Dioxide 28 (22-29) mmol/L Anion Gap 13 (12-20) BUN 19 H (9-16) mg/dL Creatinine 1.18 (0.5-1.4) mg/dL Estim Creat Clear Calc 73.1 Estimated GFR > 60 POC Glucose 124 H (60-115) mg/dL Random Glucose 119 H (60-115) mg/dL Calcium 10.6 H D (8.4-10.2) mg/dL Magnesium 2.1 (1.6-2.6) mg/dL Total Bilirubin 0.6 (0.0-1.0) mg/dL Direct Bilirubin 0.1 (0.0-0.5) mg/dL AST 27 (5-37) U/L ALT 25 (0-40) U/L Alkaline Phosphatase 73 (39-117) U/L Troponin I High Sens < 2.7 (<3.5-35.0) ng/L C-Reactive Protein < 0.10 (< or = 0.50) mg/dL B-Natriuretic Peptide < 10 (<100) pg/mL Total Protein 8.1 H (6.5-8.0) g/dL Albumin 5.0 (3.5-5.0) g/dL Ethyl Alcohol < 10 mg/dL Independent Interpretation I performed an independent interpretation of an: EKG Interpretation: EKG at 1751 shows sinus bradycardia at 53 beats per minute. No definite acute findings. No change from prior. Discharge Plan Discharge Clinical Impression: Right arm weakness Patient Disposition: Home, Self-Care Instructions: Transient Ischemic Attack (ED) Additional Instructions: It is not entirely clear but you may have had a TIA today. Offered hospitalization for further evaluation but have chosen to go home and follow up with your regular doctor. You were given a full-strength aspirin here in the emergency room today. Please take a baby aspirin once a day until advised otherwise by your regular doctor. Please contact your regular doctor's office first thing on Saturday to set up a follow up appointment and discuss this episode further and possibly undergo additional testing as an outpatient. Return to the emergency department at any time if worse. Prescriptions: No Action gabapentin 300 mg capsule 300 mg PO BEDTIME 30 Days Qty: 30 2RF penicillin V potassium 500 mg tablet 500 mg PO TID metronidazole 500 mg tablet 500 mg PO Q8H 7 Days Qty: 21 0RF Referrals: Hector Archuleta MD [Primary Care Provider] - (Episode of right arm weakness which may have been a TIA, patient did not wish to be hospitalized for further evaluation) Interventions: ED Discharge Assessment Last Done: 07/12/23 21:07 Discharge Date/Time: 07/12/23 21:15
--- NOTE | 2023-07-12 17:18 | ECG_ITS ---
Test Reason : STROKE Blood Pressure : / mmHG Vent. Rate : 053 BPM Atrial Rate : 053 BPM P-R Int : 168 ms QRS Dur : 102 ms QT Int : 440 ms P-R-T Axes : 025 063 067 degrees QTc Int : 412 ms Sinus bradycardia Septal infarct , age undetermined Abnormal ECG When compared with ECG of 05-AUG-2018 10:35, No significant change was found Referred By: Demetrius Weiner Electronically Signed By:ORTEGA FALLON MD
[2023-07-12 17:33] LABS: Glucose, Whole Blood 124 mg/dL (60-115)
[2023-07-12 17:34] VITALS: BP 169/83; PULSE 55; RESP 18; TEMP 36.6; O2SAT 100; BMI 29.5
[2023-07-12 17:36] LABS: MANUAL DIFF FLAG NO
[2023-07-12 17:38] LABS: Basophils Percent Auto 0.5 % (0-2); Hematocrit 45.4 % (42.0-52.0); Hemoglobin 16.3 g/dl (14.0-18.0); Imm Gran Abs Auto 0.02 X10*3/uL (0.00-0.03); Imm Gran Pct Auto 0.3 % (0.0-0.4); Lymphocytes Absolute Auto 0.9 X10*3/uL (1.2-4.9); Lymphocytes Percent Auto 13.9 % (20-40); Mean Corpuscular HGB Conc 35.9 g/dl (31.0-36.0); Mean Corpuscular Hemoglobin 30.4 pg (27.0-33.0); Mean Corpuscular Volume 84.5 fL (80.0-98.0); Mean Platelet Volume 10.2 fL (9.4-12.4); Monocytes Absolute Auto 0.1 X10*3/uL (0.1-1.2); Monocytes Percent Auto 0.9 % (2-11); Neutrophils Absolute Auto 5.4 x10*3/uL (2.0-8.3); Neutrophils Percent Auto 84.4 % (45-73); Platelet Count 204 X10*3/uL (160-400); Red Blood Count 5.37 X10*6/uL (4.60-5.80); Red Cell Distribution Width 13.4 % (11.0-16.0); White Blood Count 6.3 X10*3/uL (4.8-10.8)
[2023-07-12] MEDS: 0.9 % Sodium Chloride 1,000 ML 999 ML IV (17:38)
[2023-07-12 17:57] LABS: B Type Natriuretic Peptide < 10 pg/mL (<100)
[2023-07-12 17:58] LABS: Alanine Aminotransferase 25 U/L (0-40); Alkaline Phosphatase 73 U/L (39-117); Anion Gap 13 (12-20); Aspartate Amino Transferase 27 U/L (5-37); Bilirubin Direct 0.1 mg/dL (0.0-0.5); Bilirubin Total 0.6 mg/dL (0.0-1.0); Blood Urea Nitrogen 19 mg/dL (9-16); C Reactive Protein < 0.10 mg/dL (< or = 0.50); Calcium 10.6 mg/dL (8.4-10.2); Carbon Dioxide 28 mmol/L (22-29); Chloride 103 mmol/L (96-108); Creatinine Clr Calc Pharmacy 73.1; Estimated Glomerular Filt Rate > 60; Ethanol < 10 mg/dL; Glucose Random 119 mg/dL (60-115); Magnesium 2.1 mg/dL (1.6-2.6); Potassium 4.4 mmol/L (3.3-5.1); Sodium 140 mmol/L (135-145); Total Protein 8.1 g/dL (6.5-8.0)
[2023-07-12 18:09] LABS: Troponin-I High Sensitivity < 2.7 ng/L (<3.5-35.0)
[2023-07-12] MEDS: iohexoL 350 MG/ML 100 ML INFUS..BTL IV (19:11)
[2023-07-12 21:07] VITALS: BP 135/73; PULSE 56; RESP 14; TEMP 36.8; O2SAT 100
[2023-07-12] MEDS: Aspirin 325 MG TABLET PO (21:09)
[2023-07-13 03:55] LABS: Estimated Average Glucose 117 mg/dL; Hemoglobin A1c % 5.7 % (<6.0)
[2023-07-13 09:53] LABS: Prothrombin Time Whole Bld POC 12.5 sec (11.1-13.5)
== END 2023-07-12 21:15 | disposition home or self-care (01) ==
PROVIDERS: Emergency Provider Emergency Medicine; PCP Family Medicine
DX: R53.1 Weakness (principal); R20.0 Anesthesia of skin; R00.1 Bradycardia, unspecified; F41.9 Anxiety disorder, unspecified; R73.03 Prediabetes; E78.5 Hyperlipidemia, unspecified; Z87.891 Personal history of nicotine dependence; Z79.899 Other long term (current) drug therapy
CPT/HCPCS: 36415; 70450; 70496; 70498; 80048; 80076; 80307; 82947; 83036; 83735; 83880; 84484; 85025; 85610; 86140; 93005; 96360; 99284; 99285; Q9967

== ENCOUNTER → 2023-07-12 17:18 | Outpatient (BNV) | payer OTHER, SELFPAY | PROVIDERS: Emergency Provider Emergency Medicine; PCP Family Medicine; Visit Provider Internal Medicine Cardiovascular Disease | DX: I63.9 Cerebral infarction, unspecified (principal) | CPT/HCPCS: 93010 ==

== ENCOUNTER 2023-07-18 16:02 | Outpatient (AMB) | payer OTHER, SELFPAY ==
--- NOTE | 2023-07-18 15:55 | A.OFFPC_ITS ---
Intake Visit Reasons: 2week f/u/[phone] Intake Note: Patient is calling to follow up on his sinusitis today. Allergies Fish Containing Products Adverse Reaction (Intermediate, Verified 07/18/23 15:57) nausea Tobacco use date assessed: 07/18/23 HPI 2week f/u/[phone] HPI Details 52 y/o male presents to f/u ED visit 06/27 09/19 for R arm weakness. He was at home at his apartment and had started to feel there was a sense of weakness and loss of function of R arm. Had a negative noncontrast head CT. CT angio of head and neck that showed no obvious vascular disease. Was offered hospitalization for work up for a ? TIA but pt declined this. Pt reports recent significant stressors such as his father passing away. [facility] [place] Medical History Lower back pain (~01/2023) Renal calculi COVID-19 vaccine series completed IBS (irritable bowel syndrome) Elevated cholesterol Chronic back pain Borderline diabetes Surgical History History of umbilical hernia repair (~05/16/21) Hx of colonoscopy History of esophagogastroduodenoscopy (EGD) Hx of lithotripsy H/O hernia repair History of laparotomy History of reconstruction of anterior cruciate ligament tear Family History Maternal Uncle Skin cancer Other Mental health disorder Substance use disorder Social History Housing: House Alcohol intake: former Patient Tobacco Use Status: Former Tobacco user Quit Date: age 19 Tobacco use type: Cigarette e-Cigarette/Vaping Use: Never Used Second Hand Smoke Exposure: No service: No Current occupational status: employed 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 Dylan Carr, Esperanza B.Avery Gray and colleagues, with an educational jessica from [employer]. Review of Systems Const Denies chills, Denies fatigue, Denies fever(s), Denies headache(s) and Denies weakness ENT Denies dizziness and Denies headache(s) Card Denies dyspnea Resp Denies cough, Denies dyspnea, Denies wheezing and Denies other (shortness of breath) Musc Denies numbness and Denies tingling Neuro Denies dizziness, Denies headache(s), Denies numbness, Denies tingling and Denies weakness Psych Denies anxiety and Denies depression Endo Denies fatigue Aller/Immun Denies wheezing Physical exam (Primary Care) Tobacco/Smoking Status: Tobacco use Status Tobacco use date assessed 07/18/23 07/18/23 15:59 Patient Tobacco Use Status Former Tobacco user 07/18/23 15:59 Tobacco use type Cigarette 07/18/23 15:59 e-Cigarette/Vaping Use Never Used 07/18/23 15:59 Thrive Assessment: Date of Thrive Assessment Date Thrive assessed 06/19/23 07/18/23 15:59 Const General: well developed; No acute distress Nutritional Appearance: well nourished Orientation/consciousness: patient oriented x3 HENMT Head: Yes normocephalic and Yes atraumatic Eyes General: appearance normal, both eyes and all related structures Pupils: Equal, round and reactive pupils present EOM: EOMs intact bilaterally Resp Effort & Inspection: normal respiratory effort Neuro General: patient oriented x3 and gait normal Cranial nerves: Yes Equal, round and reactive pupils present Psych Affect: normal affect Telehealth Telehealth Location of provider rendering services: practice address Location of patient: address on file Patient Identification confirmed using: Name, : Yes Telehealth method: voice only Patient verbally consented to treatment: Yes Patient verbally consented to billing insurance company: Yes Patient informed of any privacy concerns related to visit: Yes Minutes spent on Phone/Video with Pt.: 25 Assessment and Plan Assessment & Plan (1) Right arm weakness: Code(s): R29.898 - Other symptoms and signs involving the musculoskeletal system Plan: TIA vs Nerve impingement vs anxiety. 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 Patient?has?had?severe?increase?in?his?stress?and?anxiety?as?his?father?just?pas sed?away.??Patient?notes?symptoms?began?when?he?reached?out?with?his?arm?and?anx i ety/confusion?wrapped?up?from?there.??May?be?more?consistent?with?impingement?an d?worsening?anxiety?subsequently.??Still?having?neck?pain. Nevertheless,?will?have?him?continue?aspirin.??Will?refer?him?to?neurology (2) Anxiety: Code(s): F41.9 - Anxiety disorder, unspecified Plan: Offered?medication?and?therapy?but?patient?declines?for?now. He?will?let?me?know?if?he?wants?to?discuss?these?further Orders: Referrals Neurology Referral R29.898 - Other symptoms and signs involving the musculoskeletal system Coding Level of Care Code Tele Est Pt Level 4 (13267) Diagnoses Right arm weakness R29.898 Anxiety F41.9
== END 2023-07-18 17:00 ==
LOC: HO.HMGFM 16:02
PROVIDERS: PCP Family Medicine; Visit Provider Family Medicine
DX: R29.898 Other symptoms and signs involving the musculoskeletal system (principal); F41.9 Anxiety disorder, unspecified
CPT/HCPCS: 99443

== ENCOUNTER 2023-08-06 10:07 | Outpatient (AMB) | payer OTHER, SELFPAY ==
--- NOTE | 2023-08-06 10:13 | AM.OFFWIN_ITS ---
Intake Vital Signs 08/06/23 10:20 Height 5 ft 6 in Weight 178 lb BMI 28.7 BP 128/76 Blood Pressure Location Lt brachial Position Sitting Respiration 14 Pulse 55 Pulse Source Pulse Oximeter Temp 97.7 F Temp Source Oral Pulse Oximetry (%) 97 Oxygen Delivery Method Room Air Intake Visit Reasons: Blood in Urine Intake Note: Blood in urine started yesterday Patient Tobacco Use Status: Former Tobacco user Quit Date: age 19 Allergies Fish Containing Products Adverse Reaction (Intermediate, Verified 08/06/23 10:14) nausea Medication List - Last Reconciled 08/06/23 by Brittany Saleem PA-C aspirin 81 mg PO DAILY glucosamine HCl 500 mg PO DAILY Do you need a note to return to daycare/school/sports/work: No HPI Blood in Urine HPI Details Pt is a 53 y/o male with a hx of prediabetes who presents today with complaints of gross hematuria. He states that his sx started 2 days ago. He states that 2 days ago it seemed very faint where he thought maybe he was just dehydrated. Last night he noted that the urine looked much more brown/blood like. He states this morning it had a reddish/brown color. He states he did have a similar episode about a month ago but it did resolve spontaneously and he never was seen for it. He has a hx of kidney stones but has not issues with stones in many years. 3 weeks ago he did have some urinary retention. He states it was hard to urinate and was unable to go for a few hours after developing the sensation of having to urinate. No increased urinary frequency or dysuria. He does endorse left lower abdominal pain. No flank pain. No fever, chills, vomiting, diarrhea, or constipation. Reports some mild nausea. He has been trying to push fluids. He has not changed any recent medications or supplements. Continues with aspirin and glucosamine daily. Last labs reviewed. He did have an elevated calcium. No recent imaging of the abdomen. Colonoscopy is up-to-date and due again this year due to poor prep. [facility] Medical History Lower back pain (~01/2023) Renal calculi COVID-19 vaccine series completed IBS (irritable bowel syndrome) Elevated cholesterol Chronic back pain Borderline diabetes Surgical History History of umbilical hernia repair (~05/16/21) Hx of colonoscopy History of esophagogastroduodenoscopy (EGD) Hx of lithotripsy H/O hernia repair History of laparotomy History of reconstruction of anterior cruciate ligament tear Family History Maternal Uncle Skin cancer Other Mental health disorder Substance use disorder Social History Housing: House Alcohol intake: former Patient Tobacco Use Status: Former Tobacco user Quit Date: age 19 Tobacco use type: Cigarette e-Cigarette/Vaping Use: Never Used Second Hand Smoke Exposure: No service: No Current occupational status: employed 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 Current occupational exposures/hazards: No Cognitive needs: No Hearing needs: No Vision needs: No Physical Exam Vital Signs: Last Vital Signs Temp 97.7 F 08/06/23 10:20 Pulse 55 08/06/23 10:20 Resp 14 08/06/23 10:20 BP 128/76 08/06/23 10:20 Pulse Ox 97 08/06/23 10:20 Oxygen Delivery Method Room Air 08/06/23 10:20 BMI result Body Mass Index 28.7 Const Orientation/consciousness: patient oriented x3 HEENT Ears: hearing grossly normal bilaterally Neck Lymphatic: no lymphadenopathy noted Resp Auscultation: clear to auscultation bilaterally Cardio Rate: regular rate Rhythm: regular rhythm Heart sounds: S1 normal heart sound present and S2 normal heart sound present GI Inspection: Yes normal to inspection Palpation (GI): Soft to palpation and Other GI palpation findings present (LLQ and suprapubic pain present on palpation. No CVA tenderness) Auscultation: normoactive bowel sounds Skin General skin exam: no rashes or lesions noted Neuro General: patient oriented x3, gait normal and no focal motor deficits Results AMB Urinalysis Dipstick UR Leukocytes Small Last Edit by Gogo Schwartz CMA on 08/06/23 10:38 15 Gogo Schwartz 08/06/23 10:38 UR Nitrite Negative Last Edit by Gogo Schwartz CMA on 08/06/23 10:38 UR Urobilinogen 4 Last Edit by Gogo Schwartz CMA on 08/06/23 10:38 3.5 Gogo Schwartz 08/06/23 10:38 UR Protein Trace Last Edit by Gogo Schwartz, [employer] on 08/06/23 10:38 1+ Gogo Elsaservando 08/06/23 10:38 UR Ph 5.5 Last Edit by Gogo Schwartz, [employer] on 08/06/23 10:38 UR Blood Moderate Last Edit by Gogo Schwartz, [employer] on 08/06/23 10:38 3.5 Gogo Shcwartz 08/06/23 10:38 UR Specific [place] 1.025 Last Edit by Gogo Schwartz, [employer] on 08/06/23 10: 38 UR Ketone Negative Last Edit by Gogo Schwartz, [facility] on 08/06/23 10:38 UR Bilirubin Negative Last Edit by Gogo Schwartz, [facility] on 08/06/23 10:38 UR Glucose Negative Last Edit by Ggoo Schwartz, [employer] on 08/06/23 10:38 Assessment & Plan Assessment & Plan (1) Gross hematuria: Code(s): R31.0 - Gross hematuria (2) LLQ pain: Code(s): R10.32 - Left lower quadrant pain Plan Abdominal exam today does elicit some discomfort in the left lower quadrant however this is not an acute abdomen. Blood noted on urine dip. Given these findings CT abdomen and pelvis ordered. Labs including CBC, BMP and culture ordered. We will follow up pending test results. Referral to Urology. Patient was advised of any warning signs that would require emergent medical treatment. He will follow up in office if anything worsens or changes. Patient understands and agrees with this plan. Orders: Orders AMB Urinalysis Dipstick Today R31.9 - Hematuria, unspecified Basic Metabolic Panel Today R10.32 - Left lower quadrant pain, R31.0 - Gross hematuria Urine Culture Today R10.32 - Left lower quadrant pain, R31.0 - Gross hematuria CT abdomen pelvis wo/w IV con Today R10.32 - Left lower quadrant pain, R31.0 - Gross hematuria Complete Blood Count Man Dif Today R10.32 - Left lower quadrant pain, R31.0 - Gross hematuria Referrals Urology Referral R10.32 - Left lower quadrant pain, R31.0 - Gross hematuria Coding Level of Care Code Est Pt Level 4 (16881) Diagnoses Gross hematuria R31.0 LLQ pain R10.32
[2023-08-06 10:20] VITALS: BP 128/76; PULSE 55; RESP 14; TEMP 36.5; O2SAT 97; BMI 28.7
== END 2023-08-06 11:32 | disposition home or self-care (01) ==
PROVIDERS: PCP Family Medicine; Visit Provider Physician Assistant
DX: R31.0 Gross hematuria (principal); R10.32 Left lower quadrant pain
CPT/HCPCS: 81002; 99214

== ENCOUNTER 2023-08-06 11:06 | Outpatient (REF) | payer OTHER, SELFPAY ==
[2023-08-06 14:47] LABS: Anion Gap 12 (12-20); Blood Urea Nitrogen 14 mg/dL (9-16); Calcium 9.6 mg/dL (8.4-10.2); Carbon Dioxide 30 mmol/L (22-29); Chloride 105 mmol/L (96-108); Estimated Glomerular Filt Rate > 60; Glucose Random 109 mg/dL (60-115); Potassium 3.8 mmol/L (3.3-5.1); Sodium 143 mmol/L (135-145)
[2023-08-06 14:51] LABS: Baso%MD 0.7 %; Eos%MD 4.6 %; Hematocrit 43.2 % (42.0-52.0); Hemoglobin 14.9 g/dl (14.0-18.0); IG%MD 0.3 %; Lymph%MD 22.7 %; Mean Corpuscular HGB Conc 34.5 g/dl (31.0-36.0); Mean Corpuscular Volume 86.9 fL (80.0-98.0); Mean Platelet Volume 10.6 fL (9.4-12.4); Mono%MD 5.3 %; Neut%MD 66.4 %; Platelet Count 172 X10*3/uL (160-400); Red Blood Count 4.97 X10*6/uL (4.60-5.80); Red Cell Distribution Width 13.7 % (11.0-16.0)
[2023-08-06 16:54] LABS: Basophils Abs Manual 0.1 X10*3/uL (0.0-0.2); Basophils Percent Manual 1 % (0-2); Eosinophils Absolute Manual 0.4 X10*3/uL (0.0-0.4); Eosinophils Percent Manual 6 % (0-4); Lymphocytes Absolute Manual 1.2 X10*3/uL (1.2-4.9); Lymphocytes Percent Manual 20 % (20-40); Monocytes Absolute Manual 0.4 X10*3/uL (0.1-1.2); Monocytes Percent Manual 6 % (2-11); Neutrophils Percent Manual 67 % (45-73)
[2023-08-06 16:56] LABS: Platelet Estimate NORMAL (NORMAL); Platelet Morphology Comment NORMAL; RBC Morphology NORMAL
[2023-08-06 16:57] LABS: Band Neutrophils Percent 0 % (3-5)
== END 2023-08-06 11:07 | disposition home or self-care (01) ==
LOC: HO.WFDLDS 11:06
PROVIDERS: Visit Provider Physician Assistant
DX: R31.0 Gross hematuria (principal); R10.32 Left lower quadrant pain
CPT/HCPCS: 36415; 80048; 85007; 85027; 87086

== ENCOUNTER 2023-08-14 11:26 | Outpatient (REF) | payer OTHER, SELFPAY ==
--- NOTE | ~2023-08-14 | CT_ITS ---
EXAMINATION: CT abdomen pelvis wo/w IV con CLINICAL INFORMATION: Reason for Exam R10.32 - Left lower quadrant pain COMPARISON: No prior CT available for comparison. TECHNIQUE: Multidetector volumetric imaging was performed from the superior aspect of the liver through the pubic symphysis initially done without contrast, subsequently contrast injected 85 mL Omnipaque 350 injected Sagittal and coronal reformatted images were obtained on the technologist's workstation. This CT examination was performed using dose optimization techniques as appropriate, variously including the following: *Automated exposure control *Adjustment of mA and/or kV according to patient size (this includes techniques or standardized protocols for targeted exams where dose is matched to indication/reason for exam; i.e. extremities or head) *Use of iterative reconstruction technique DLP: 814 mGy-cm FINDINGS: LOWER THORAX: Included lung bases are clear. HEPATOBILIARY: No focal hepatic lesions. No biliary ductal dilatation. GALLBLADDER: Gallbladder unremarkable. SPLEEN: Spleen is normal in size. PANCREAS: No focal mass or ductal dilatation. STOMACH AND GASTROINTESTINAL TRACT: Stomach is grossly unremarkable. There is no bowel distention or thickening. No CT evidence of appendicitis. ADRENALS: No adrenal nodules. KIDNEYS/URETERS: There are bilateral hypodensities the largest on the right side is likely a simple cyst Bosniak class I measure up to 1.3 cm with Hounsfield unit attenuation of about 10 consistent with benign Bosniak class I cyst, no follow-up imaging is recommended for this one, other smaller hypodensities they are too small to accurately characterize however statistically commonly found to be evolving cysts as well. No suspicious solid lesion. There are nonobstructing stones in the right kidney the largest measure up to 0.7 cm, there are approximately 4 stones on the right side. There is no hydronephrosis. Perinephric fat are clear. URINARY BLADDER: Partially decompressed. PELVIC VISCERA: Unremarkable PERITONEUM: No free air or fluid. LYMPH NODES: No lymphadenopathy. VASCULAR:Abdominal aorta normal in size, no aneurysm found. BONES, ABDOMINAL WALL AND SOFT TISSUES: Age-appropriate changes of the spine and skeletal system, no destructive osteolytic or osteosclerotic bone lesion found CT/CT abdomen pelvis wo/w IV con IMPRESSION: * No CT evidence of acute intra-abdominal process to explain patient's pain symptoms. * There are nonobstructing stones in the right kidney the largest measure up to 0.7 cm. No hydronephrosis.
[2023-08-14] MEDS: iohexoL 350 MG/ML 100 ML INFUS..BTL IV (12:29)
== END 2023-08-14 11:27 | disposition home or self-care (01) ==
LOC: HO.CT 11:26
PROVIDERS: Visit Provider Physician Assistant
DX: R10.32 Left lower quadrant pain (principal); R31.0 Gross hematuria
CPT/HCPCS: 74178; Q9967

== ENCOUNTER 2023-09-09 10:49 | Outpatient (AMB) | payer OTHER, SELFPAY ==
[2023-09-09 11:00] VITALS: BP 124/74; PULSE 58; TEMP 36.7; O2SAT 98
--- NOTE | 2023-09-09 11:00 | AM.OFFWIN_ITS ---
Intake Vital Signs 09/09/23 11:00 Height 5 ft 6 in BP 124/74 Blood Pressure Location Rt brachial Position Sitting Pulse 58 Pulse Source Pulse Oximeter Temp 98.0 F Temp Source Oral Pulse Oximetry (%) 98 Oxygen Delivery Method Room Air Intake Visit Reasons: EP post nasal drip? coughing Intake Note: pt is here for post nasal drip and coughing Patient Tobacco Use Status: Former Tobacco user Quit Date: age 19 Allergies Fish Containing Products Adverse Reaction (Intermediate, Verified 09/09/23 11:01) nausea Do you need a note to return to daycare/school/sports/work: No HPI HPI Comments History of Present Illness Details Patient presents to the walk in for 1 week cough, sinus congestion. Denies fever, chest pain, shortness of breath, palpitations, syncope, weakness Denies headache, ear pain, sore throat. also with cold sore to lower lip, left side [facility] Medical History (Updated 09/09/23 @ 11:47 by Shayy Coombs, SEBASTIAN, [employer]) LLQ pain Gross hematuria Lower back pain (~01/2023) Renal calculi COVID-19 vaccine series completed IBS (irritable bowel syndrome) Elevated cholesterol Chronic back pain Borderline diabetes Surgical History History of umbilical hernia repair (~05/16/21) Hx of colonoscopy History of esophagogastroduodenoscopy (EGD) Hx of lithotripsy H/O hernia repair History of laparotomy History of reconstruction of anterior cruciate ligament tear Family History Maternal Uncle Skin cancer Other Mental health disorder Substance use disorder Social History Housing: House Alcohol intake: former Patient Tobacco Use Status: Former Tobacco user Quit Date: age 19 Tobacco use type: Cigarette e-Cigarette/Vaping Use: Never Used Second Hand Smoke Exposure: No service: No Current occupational status: employed 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 Answers questions appropriately. Fully engaged in examination. Skin: warm, dry, intact HEENT: TMs intact bilaterally, without erythema. Posterior pharynx without erythema or exudate. +post nasal secretions. Sclera without icterus or injection. small cluster of fluid-filled blisters lower lip-left side. Cardiac: External chest normal in appearance. Respiratory: +cough. LSCTAB. Abdomen: without gross distension. Neurological: Oriented to person, place, time and situation. Thought process intact. Psychiatric: Appropriate mood and affect. Good judgment and insight. Assessment & Plan Assessment & Plan (1) URI (upper respiratory infection): Code(s): J06.9 - Acute upper respiratory infection, unspecified (2) HSV-1 (herpes simplex virus 1) infection: Code(s): B00.9 - Herpesviral infection, unspecified Plan URI, no abx warranted. Benzonatate 100mg po bid as needed Rest, drink plenty of fluids, tylenol or motrin as needed. Recommend taking OTC nasal decongestants and claritin/zyrtec/luba. Valacyclovir as directed. Follow up with pcp or in clinic for any new or worsening symptoms. Go to ER for shortness of breath, chest pain, palpitations, weakness, dizziness. Medications: New benzonatate 100 mg PO BID PRN 20 caps 0RF cough valacyclovir 1,000 mg PO TID 7 days 21 tabs 0RF Coding Level of Care Code Est Pt Level 3 (46620) Diagnoses URI (upper respiratory infection) J06.9 HSV-1 (herpes simplex virus 1) infection B00.9
== END 2023-09-09 12:02 | disposition home or self-care (01) ==
PROVIDERS: PCP Family Medicine; Visit Provider Registered Nurse Emergency
DX: J06.9 Acute upper respiratory infection, unspecified (principal); B00.9 Herpesviral infection, unspecified
CPT/HCPCS: 99213

== ENCOUNTER 2023-10-30 08:33 | Outpatient (REF) | payer OTHER, SELFPAY ==
[2023-10-30 08:49] LABS: MANUAL DIFF FLAG NO
[2023-10-30 09:10] LABS: Basophils Absolute Auto 0.1 X10*3/uL (0.0-0.2); Basophils Percent Auto 0.8 % (0-2); Eosinophils Absolute Auto 0.2 X10*3/uL (0.0-0.4); Eosinophils Percent Auto 2.9 % (0-4); Hematocrit 43.5 % (42.0-52.0); Hemoglobin 15.2 g/dl (14.0-18.0); Imm Gran Abs Auto 0.02 X10*3/uL (0.00-0.03); Imm Gran Pct Auto 0.3 % (0.0-0.4); Lymphocytes Absolute Auto 1.9 X10*3/uL (1.2-4.9); Lymphocytes Percent Auto 29.6 % (20-40); Mean Corpuscular HGB Conc 34.9 g/dl (31.0-36.0); Mean Corpuscular Hemoglobin 30.6 pg (27.0-33.0); Mean Corpuscular Volume 87.5 fL (80.0-98.0); Mean Platelet Volume 10.1 fL (9.4-12.4); Monocytes Absolute Auto 0.6 X10*3/uL (0.1-1.2); Monocytes Percent Auto 8.6 % (2-11); Neutrophils Absolute Auto 3.8 x10*3/uL (2.0-8.3); Neutrophils Percent Auto 57.8 % (45-73); Platelet Count 178 X10*3/uL (160-400); Red Blood Count 4.97 X10*6/uL (4.60-5.80); Red Cell Distribution Width 13.5 % (11.0-16.0); White Blood Count 6.5 X10*3/uL (4.8-10.8)
[2023-10-30 09:42] LABS: Alanine Aminotransferase 22 U/L (0-40); Albumin Level 4.6 g/dL (3.5-5.0); Alkaline Phosphatase 60 U/L (39-117); Anion Gap 11 (12-20); Aspartate Amino Transferase 26 U/L (5-37); Bilirubin Total 1.1 mg/dL (0.0-1.0); Blood Urea Nitrogen 16 mg/dL (9-16); Calcium 9.5 mg/dL (8.4-10.2); Carbon Dioxide 29 mmol/L (22-29); Chloride 103 mmol/L (96-108); Cholesterol 188 mg/dL (<200); Estimated Glomerular Filt Rate > 60; Glucose Fasting 97 mg/dL (60-99); HDL Cholesterol 46 mg/dL (>40); LDL Cholesterol Calculated 116 mg/dL (<100); Sodium 139 mmol/L (135-145); Total Protein 7.2 g/dL (6.5-8.0); Triglycerides 130 mg/dL (<150)
[2023-10-30 09:51] LABS: TSH reflex Free T4 0.93 uIU/mL (0.32-4.0)
[2023-10-30 10:02] LABS: Appearance Urine Clear; Color Urine Yellow; Glucose Urine UA Negative (Negative); Leukocyte Esterase Urine Negative (Negative); Nitrite Urine Negative (Negative); Specific Gravity - Urine >= 1.030 (1.005-1.025); UMIC TRIGGER UA YES; Urine Blood Large (3+) (Negative); Urine Ketones Negative (Negative); Urine Protein Negative (Neg-Trace)
[2023-10-30 10:10] LABS: Bacteria Urine None Seen (None Seen); Hyaline Casts Urine 0-2 /LPF (0-2); RBC Urine >20 /HPF (0-2); Squamous Epithelial Cell Urine 0-2 /HPF (0-2); WBC Urine 0-5 /HPF (0-5)
[2023-10-30 11:16] LABS: Creatinine Urine 207.31 mg/dL; Microalbum/Creatinine Ratio Ur 12.5 ug/mg cr (<30)
== END 2023-10-30 08:34 | disposition home or self-care (01) ==
LOC: HO.LAB 08:33
PROVIDERS: PCP Family Medicine; Visit Provider Family Medicine
DX: Z00.00 Encounter for general adult medical examination without abnormal findings (principal); I10 Essential (primary) hypertension; Z12.5 Encounter for screening for malignant neoplasm of prostate
CPT/HCPCS: 36415; 80053; 80061; 81001; 81003; 82043; 82570; 84153; 84443; 85025

== ENCOUNTER 2023-11-07 11:58 | Outpatient (AMB) | payer OTHER, SELFPAY ==
[2023-11-07 12:17] VITALS: BP 112/68; PULSE 51; RESP 15; TEMP 36.6; O2SAT 98; BMI 28.0
--- NOTE | 2023-11-07 12:17 | A.OFFPC_ITS ---
Vital Signs 11/07/23 12:17 Height 5 ft 6 in Weight 173 lb 8 oz BMI 28.0 BP 112/68 Blood Pressure Location Rt brachial Position Sitting Respiration 15 Pulse 51 Pulse Source Pulse Oximeter Temp 97.8 F Temp Source Temporal Artery Scan Pulse Oximetry (%) 98 Oxygen Delivery Method Room Air Intake Visit Reasons: CPE with f/u labs and health maint. Intake Note: Patient states he wiol wait to list concerns when provider is in room. Brake Adjuster Required: No Accompanied by: Self / Same As Patient Allergies Fish Containing Products Adverse Reaction (Intermediate, Verified 11/07/23 12:24) nausea Tobacco use date assessed: 11/07/23 Dental Screening Dental Screen Date: 11/07/23 Did you have a dental visit in the last 12 months?: Yes Did you have a dental problem in the last 6 months where you did not have access to dental care?: No Was dental information given to patient?: Patient has dentist HPI CPE with f/u labs and health maint. HPI Details Patient?presents?for?complete?physical?exam Complaints?of: Calf cramps R foot pain & Cramping Hematuria - recent?CT?scan?showed?right?nonobstructing?renal?stone?and?some?tiny?cysts He?notes?that?he?has?an?appointment?with?Urology?tomorrow. L upper molar?pain.??He?has?seen?the?dentist?about?this?and?workup?is?ongoing. Bilateral?trapezius?and?posterior?neck?pain.??Does?not?li ke?to?try?NSAIDs?and?does?not?want?muscle?relaxants. 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 Working?out?on?an?elliptical?more?as?well. Has?lost?some?weight Patient?had?a?recent?cold?sore?and?is?requesting?STD/STI?testing.??No?other?symp toms. Patient?remains?monogamous?with?his??and?feels?that?his??is?monoga mous?as?well?but?would?like?to?be?checked. [facility] Medical History LLQ pain Gross hematuria Lower back pain (~01/2023) Renal calculi COVID-19 vaccine series completed IBS (irritable bowel syndrome) Elevated cholesterol Chronic back pain Borderline diabetes Surgical History History of umbilical hernia repair (~05/16/21) Hx of colonoscopy History of esophagogastroduodenoscopy (EGD) Hx of lithotripsy H/O hernia repair History of laparotomy History of reconstruction of anterior cruciate ligament tear Family History Maternal Uncle Skin cancer Other Mental health disorder Substance use disorder Social History Housing: House Alcohol intake: former Patient Tobacco Use Status: Former Tobacco user Tobacco use type: Cigarette e-Cigarette/Vaping Use: Never Used Second Hand Smoke Exposure: No service: No Current occupational status: employed 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 1. Little interest or pleasure in doing things: not at all 2. Feeling down, depressed, or hopeless: not at all 3. Trouble falling or staying asleep, or sleeping too much: not at all 4. Feeling tired or having little energy: not at all 5. Poor appetite or overeating: not at all 6. Feeling bad about yourself - or that you are a failure or have let yourself or your family down: not at all 7. Trouble concentrating on things, such as reading the newspaper or watching television: not at all 8. Moving or speaking so slowly that other people could have noticed. Or the opposite - being so fidgety or restless that you have been moving around a lot more than usual: not at all 9. Thoughts that you would be better off or of hurting yourself in some way: not at all Total score: 0 Depression Screening Interpretation: Negative Depression Screening Done: Yes 14193 - PHQ-9 Billing: Yes Source: Developed by Drs. Dylan Carr, Avery Lopez and colleagues, with an educational jessica from [employer]. Thrive Questionnaire Date Thrive assessed: 11/07/23 I am a: Patient What is your living situation today?: I have a steady place to live Within the past 12 months, did the food you bought not last and you didn't have the money to get more?: Never true Within the past 12 months, did you worry whether your food would run out before you got money to buy more?: Never true Do you have trouble paying for medicines?: No Do you have trouble getting transportation to medical appointments?: No Do you have trouble paying your heating and electricity bill?: No Do you have trouble taking care of your child, family member or friend?: No Do you have trouble with day-to-day activities such as bathing, preparing meals, shopping, managing finances, etc.?: No Are you currently unemployed and looking for a job?: No Are you interested in more education?: No Please select the resources that you would like help with: None Currently or been in a relationship where the following occur: No concerns reported THRIVE Score: 0 AUDIT C Alcohol Use Questionnaire (AUDIT-C) 1. How often do you have a drink containing alcohol?: Never 3. How often do you have six or more drinks on one occasion?: Never Total Score: 0 LESLY-7 AMB Questionnaire LESLY-7 Date LESLY - 7 assessed: 11/07/23 Feeling nervous, anxious, or on edge: 0 = Not at all Not being able to stop or control worryin = Not at all Worrying too much about different things: 0 = Not at all Trouble relaxin = Not at all Being so restless that it is hard to sit still: 0 = Not at all Becoming easily annoyed or irritable: 0 = Not at all Feeling afraid as if something awful might happen: 0 = Not at all Total LESLY-7 score (0-4 normal; 5-9 mild; 10-14 moderate; 15-21 severe): 0 Source: Developed by Esperanza Turner Kurt Kroenke and colleagues, with an educational jessica from [employer]. LESLY-7 Assessment Billing LESLY-7 Assessment Tool: LESLY-7 Assessment 84056 Review of Systems Const Denies chills, Denies fatigue, Denies fever(s), Denies headache(s) and Denies weakness Eyes Denies change in vision ENT Denies dizziness, Denies headache(s), Denies hearing loss, Denies nasal congestion, Denies sinus pain, Denies sinus pressure and Denies sore throat Card Denies chest pain, Denies lightheadedness, Denies dyspnea and Denies other (palpitations) Resp Denies cough, Denies dyspnea and Denies wheezing GI Denies abdominal pain, Denies melena, Denies hematochezia, Denies change in bowel habits, Denies dyspepsia and Denies nausea Denies hematuria and Denies dysuria Musc Denies abnormal gait, Reports myalgias (See?HPI), Denies arthralgias, Denies numbness and Denies tingling Skin/Breast Denies rash, Denies unusual bruising and Denies wounds Neuro Denies abnormal gait, Denies dizziness, Denies headache(s), Denies memory loss, Denies numbness, Denies Sensory deficit (Neuro), Denies tingling and Denies weakness Psych Denies anxiety, Denies depression and Denies memory loss Endo Denies cold intolerance, Denies fatigue, Denies heat intolerance, Denies polydipsia and Denies polyuria Corby/Lymph Denies easy bleeding and Denies easy bruising Aller/Immun Denies wheezing Physical exam (Primary Care) Vital Signs: Last Vital Signs Temp 97.8 F 11/07/23 12:17 Pulse 51 11/07/23 12:17 Resp 15 11/07/23 12:17 BP 112/68 11/07/23 12:17 Pulse Ox 98 11/07/23 12:17 Oxygen Delivery Method Room Air 11/07/23 12:17 BMI result Body Mass Index 28.0 Tobacco/Smoking Status: Tobacco use Status Tobacco use date assessed 11/07/23 11/07/23 12:29 Patient Tobacco Use Status Former Tobacco user 11/07/23 12:29 Tobacco use type Cigarette 11/07/23 12:29 e-Cigarette/Vaping Use Never Used 11/07/23 12:29 PHQ-9: PHQ-9 Score PHQ-9: Total score 0 11/07/23 12:29 Depression Screening Interpretation: Negative Thrive Assessment: Date of Thrive Assessment Date Thrive assessed 11/07/23 11/07/23 12:29 Currently or been in a relationship where the following occur: No concerns reported Const General: no acute distress, well developed, alert and awake Nutritional Appearance: well nourished Orientation/consciousness: patient oriented x3 HENMT Head: Yes normocephalic and Yes atraumatic Ears: hearing grossly normal bilaterally and TM's normal bilaterally General nose exam: Normal external nose present and Normal nares present Mouth: Normal oral and palatal mucosa present and moist mucous membranes Teeth and gingiva: dentition normal Throat: Yes posterior oropharynx normal Eyes Pupils: Equal, round and reactive pupils present and Pupil accommodation reflex normal EOM: EOMs intact bilaterally Neck Neck: Yes normal visual inspection, Yes no lymphadenopathy and Yes trachea midline Thyroid: Thyroid normal Carotids: no bruits Lymphatic: no lymphadenopathy noted Chest Chest palpation & inspection: normal inspection of the chest Resp Effort & Inspection: normal respiratory effort Auscultation: clear to auscultation bilaterally Cardio Rate: regular rate Rhythm: regular rhythm Heart sounds: S1 normal heart sound present, S2 normal heart sound present, no gallops, no murmurs and no rubs Bruits: no abdominal aortic bruits and no carotid bruits GI Palpation (GI): No Abdominal aortic bruit present, Soft to palpation, nontender, No hepatosplenomegaly present and No Rebound tenderness present Auscultation: normal bowel sounds General: Yes no CVA tenderness Back/Spine/Pelvis Back: no CVA tenderness Cervical Spine: cervical ROM normal and No Cervical spine tenderness Thoracic/Lumbar Spine: thoraco-lumbar ROM normal, No pain with thoraco-lumbar ROM, No thoracic spinal tenderness and No lumbar spinal tenderness Skin Lesions: no lesions Rashes: no rashes Trauma: no lacerations or abrasions Wounds: no wounds Nails: normal Neuro General: patient oriented x3, gait normal and CN's II-XI intact bilaterally Cranial nerves: Yes Equal, round and reactive pupils present Cognition (Neuro): normal cognition Gait exam (Neuro): Normal gait present Motor exam (neuro): 5/5 motor strength present throughout Sensory Exam: No Sensory deficit (Neuro) Deep tendon reflexes (DTR's): Right patellar reflex intensity grade: 2+ and Left patellar reflex intensity grade: 2+ Extrem General: Yes normal to inspection and No edema Psych Appearance: grossly normal Affect: normal affect Attitude: cooperative Thought process: Normal thought process present Assessment and Plan Assessment & Plan (1) Encounter for general adult medical examination without abnormal findings: Code(s): Z00.00 - Encounter for general adult medical examination without abnormal findings Plan: 53-year-old?male?presents?for?complete?physical?exam Encouraged?healthy?diet?with?active?lifestyle?and?plenty?of?exercise (2) Right foot pain: Code(s): M79.671 - Pain in right foot Plan: Right?foot?pain?and?cramping?with?some?numbness?or?tingling Referred?to?Podiatry?at?patient?request (3) Hematuria: Code(s): R31.9 - Hematuria, unspecified Plan: Recent?CT?abdomen?showed?right?nonobstructing?renal?stone He?has?an?appointment?with?Urology?tomorrow. (4) Cervicalgia: Code(s): M54.2 - Cervicalgia Plan: Neck?and?trapezius?muscle?of?shoulder?pain?bilaterally. Can?use?ice/heat?and?gentle?stretching?which?was?demonstrated?today. We?discussed?that?if?this?is?not?improving?he?will?let?me?know.??Would?advise?ph ysical?therapy?but?patient?declines?this?for?now. (5) Calf cramp: Code(s): R25.2 - Cramp and spasm Plan: May?be?secondary?to?overuse?as?he?has?been?working?out?on?an?elliptical?machine? and?running?a?lot?more?lately. Hydrate?well Relative?rest Ice/heat Can?try?magnesium?tablets (6) Pain of molar: Code(s): K08.89 - Other specified disorders of teeth and supporting structures Plan: Pain?at?left?upper?molar?and?sensitivity?to?cold?air?at?dentist?office Follow-up?with?dentist (7) Screening for prostate cancer: Code(s): Z12.5 - Encounter for screening for malignant neoplasm of prostate Plan: PSA?is?within?normal?range Will?continue?annual?screening (8) Screening for colon cancer: Code(s): Z12.11 - Encounter for screening for malignant neoplasm of colon Plan: Has?colonoscopy?scheduled?for?February Follow-up?with?GI?as?recommended Orders: Orders Hepatitis B,C Profile Today Z11.3 - Encounter for screening for infections with a predominantly sexual mode of transmission HIV Ab/Ag Today Z11.3 - Encounter for screening for infections with a predominantly sexual mode of transmission CT NG by PCR Today Z11.3 - Encounter for screening for infections with a predominantly sexual mode of transmission Syphilis Screen Today Z11.3 - Encounter for screening for infections with a p redominantly sexual mode of transmission Referrals Podiatry Referral M79.671 - Pain in right foot Coding Level of Care Code Tele Est Pt Level 3 (34098) Est Pt Prev Care 40-64y(15153) Diagnoses Encounter for general adult medical examination without abnormal findings Z00.00 Right foot pain M79.671 Hematuria R31.9 Cervicalgia M54.2 Calf cramp R25.2 Pain of molar K08.89 Screening for prostate cancer Z12.5 Screening for colon cancer Z12.11 Additional Codes LESLY-7 Assessment Billing - LESLY-7 Assessment Tool: LESLY-7 Assessment 36406 ([id number])
== END 2023-11-07 13:38 | disposition home or self-care (01) ==
PROVIDERS: PCP Family Medicine; Visit Provider Family Medicine
DX: Z00.00 Encounter for general adult medical examination without abnormal findings (principal); M79.671 Pain in right foot; R31.9 Hematuria, unspecified; M54.2 Cervicalgia; R25.2 Cramp and spasm; K08.89 Other specified disorders of teeth and supporting structures; Z12.5 Encounter for screening for malignant neoplasm of prostate; Z12.11 Encounter for screening for malignant neoplasm of colon
CPT/HCPCS: 99396

== ENCOUNTER 2023-11-07 13:42 | Outpatient (REF) | payer OTHER, SELFPAY ==
[2023-11-08 08:01] LABS: Syphilis Screen Nonreactive (Nonreactive)
[2023-11-08 08:08] LABS: HBS Num1 7.93 mIU/mL (0-7.99); HBc Num1 0.12 S/CO (0.00-0.79); HBsAGNum1 0.28 S/CO (0.00-0.99); HIV AB/AG Nonreactive (Nonreactive); HIV Num 1 0.05 S/CO (0.00-0.99); Hepatitis B Core Antibody Nonreactive (Nonreactive); Hepatitis B Surface Antigen Negative (Negative); ~HepC Num1 0.08 S/CO (0.00-0.79); ~Hepatitis B Surface Antibody NONREACTIVE (Nonreactive); ~Hepatitis C Antibody Nonreactive (Nonreactive)
== END 2023-11-07 13:43 | disposition home or self-care (01) ==
LOC: HO.WFDLDS 13:42
PROVIDERS: Visit Provider Family Medicine
DX: Z11.3 Encounter for screening for infections with a predominantly sexual mode of transmission (principal)
CPT/HCPCS: 36415; 86704; 86706; 86780; 86803; 87340; 87389

== ENCOUNTER 2023-11-08 13:56 | Outpatient (AMB) | payer OTHER, SELFPAY ==
--- NOTE | 2023-11-08 14:00 | MHC.OFFVIS ---
Intake Visit Reasons: hematuria, nephrolithiasis, renal cysts Intake Note: Patient is present for hematuria,nephrolithiasis,renal cysts Urology Medication:none Antibiotic Allergy:none Blood Thinner:aspirin Developer Prover Mechanical Required: No Allergies Latex, Natural Rubber Allergy (Severe, Verified 12/19/23 14:39) Blister Fish Containing Products Adverse Reaction (Intermediate, Verified 12/19/23 14:39) nausea HPI Comments Details: Teddy is a 53-year-old male who is here for evaluation du to hematuria and kidney stones. I have reviewed CTAP 07/2023--There are nonobstructing stones in the right kidney the largest measure up to 0.7 cm, there are approximately 4 stones on the right side. Discussed risks to include but not limited to, blood in the urine, bruising to the skin, kidney hematoma, possible need for another procedure if a stone fragment obstructs the ureter while passing, possible need to repeat procedure if stone is not completely fragmented. [facility] Medical History (Updated 12/19/23 @ 15:30 by Jeremiah Arias MD) LLQ pain Gross hematuria Lower back pain (~01/2023) Renal calculi COVID-19 vaccine series completed IBS (irritable bowel syndrome) Elevated cholesterol Chronic back pain Borderline diabetes Surgical History History of umbilical hernia repair (~05/16/21) Hx of colonoscopy History of esophagogastroduodenoscopy (EGD) Hx of lithotripsy H/O hernia repair History of laparotomy History of reconstruction of anterior cruciate ligament tear Family History Maternal Uncle Skin cancer Other Mental health disorder Substance use disorder Social History Housing: House Alcohol intake: former Patient Tobacco Use Status: Former Tobacco user Tobacco use type: Cigarette e-Cigarette/Vaping Use: Never Used Second Hand Smoke Exposure: No service: No Current occupational status: employed 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 Current occupational exposures/hazards: No Cognitive needs: No Hearing needs: No Vision needs: No Review of Systems Const All systems reviewed & are unremarkable except as noted in HPI and below Reports no additional complaints Eyes Reports no additional complaints ENT Reports no additional complaints Card Reports no additional complaints Resp Reports no additional complaints GI Reports no additional complaints Reports as per HPI Musc Reports no additional complaints Skin/Breast Reports system reviewed and no additional complaints, except as documented Neuro Reports no additional complaints Psych Reports no additional complaints Endo Reports no additional complaints Corby/Lymph Reports no additional complaints Aller/Immun Reports no additional complaints Physical Exam Const General: healthy appearing, no acute distress and well developed Orientation/consciousness: patient oriented x3 HEENT Head: Yes normocephalic and Yes atraumatic Eyes Conjunctivae: conjunctivae normal Neck Neck: Yes normal visual inspection Chest Chest palpation & inspection: normal inspection of the chest Resp Effort & Inspection: normal respiratory effort Cardio Rate: regular rate GI Inspection: Yes normal to inspection Neuro General: patient oriented x3 Psych Appearance: grossly normal Affect: normal affect Results AMB Urinalysis, Automated UA Leukoctes 15 Maurilio/uL Last Edit by SANTIAGO Hall on 11/08/23 14:26 UA Nitrite Negative Last Edit by Ashlee Wilks CCM on 11/08/23 14:26 UA Urobilinogen 0.2 mg/dL Last Edit by Ashlee Wilks CCM on 11/08/23 14:26 UA Protein 30 mg/dL Last Edit by Ashlee Wilks CCM on 11/08/23 14:26 UA pH 5.5 Last Edit by Ashlee Wilks CCM on 11/08/23 14:26 UA Blood 80 Kip/uL Last Edit by Ashlee Wilks CCM on 11/08/23 14:26 UA Specific [place] 1.025 Last Edit by SANTIAGO Hall on 11/08/23 14:26 UA Ketone Positive Last Edit by Ashlee Wilks CCM on 11/08/23 14:26 UA Bilirubin 0 mg/dL Last Edit by Ashlee Wilks CCM on 11/08/23 14:26 UA Glucose 0 mg/dL Last Edit by Ashlee Wilks CCM on 11/08/23 14:26 Results Reviewed Results Reviewed: Laboratory Last Values Urine pH (Auto) 5.5 11/08/23 14:25 Specific [place] (Auto) 1.025 11/08/23 14:25 Urine Protein (Auto) 30 mg/dL 11/08/23 14:25 Glucose (UA)(Auto) 0 mg/dL 11/08/23 14:25 Urine Ketones (Auto) Positive 11/08/23 14:25 Urine Blood (Auto) 80 Kip/uL 11/08/23 14:25 Urine Nitrite (Auto) Negative 11/08/23 14:25 Urine Bilirubin (Auto) 0 mg/dL 11/08/23 14:25 Urine Urobilinogen (Auto) 0.2 mg/dL 11/08/23 14:25 Leukocyte Esterase (Auto) 15 Maurilio/uL 11/08/23 14:25 Date of Service: 08/14/23 EXAMINATION: CT abdomen pelvis wo/w IV con CLINICAL INFORMATION: Reason for Exam R10.32 - Left lower quadrant pain COMPARISON: No prior CT available for comparison. TECHNIQUE: Multidetector volumetric imaging was performed from the superior aspect of the liver through the pubic symphysis initially done without contrast, subsequently contrast injected 85 mL Omnipaque 350 injected Sagittal and coronal reformatted images were obtained on the technologist's workstation. This CT examination was performed using dose optimization techniques as appropriate, variously including the following: *Automated exposure control *Adjustment of mA and/or kV according to patient size (this includes techniques or standardized protocols for targeted exams where dose is matched to indication/reason for exam; i.e. extremities or head) *Use of iterative reconstruction technique DLP: 814 mGy-cm FINDINGS: LOWER THORAX: Included lung bases are clear. HEPATOBILIARY: No focal hepatic lesions. No biliary ductal dilatation. GALLBLADDER: Gallbladder unremarkable. SPLEEN: Spleen is normal in size. PANCREAS: No focal mass or ductal dilatation. STOMACH AND GASTROINTESTINAL TRACT: Stomach is grossly unremarkable. There is no bowel distention or thickening. No CT evidence of appendicitis. ADRENALS: No adrenal nodules. KIDNEYS/URETERS: There are bilateral hypodensities the largest on the right side is likely a simple cyst Bosniak class I measure up to 1.3 cm with Hounsfield unit attenuation of about 10 consistent with benign Bosniak class I cyst, no follow-up imaging is recommended for this one, other smaller hypodensities they are too small to accurately characterize however statistically commonly found to be evolving cysts as well. No suspicious solid lesion. There are nonobstructing stones in the right kidney the largest measure up to 0.7 cm, there are approximately 4 stones on the right side. There is no hydronephrosis. Perinephric fat are clear. URINARY BLADDER: Partially decompressed. PELVIC VISCERA: Unremarkable PERITONEUM: No free air or fluid. LYMPH NODES: No lymphadenopathy. VASCULAR:Abdominal aorta normal in size, no aneurysm found. BONES, ABDOMINAL WALL AND SOFT TISSUES: Age-appropriate changes of the spine and skeletal system, no destructive osteolytic or osteosclerotic bone lesion found CT/CT abdomen pelvis wo/w IV con IMPRESSION: * No CT evidence of acute intra-abdominal process to explain patient's pain symptoms. * There are nonobstructing stones in the right kidney the largest measure up to 0.7 cm. No hydronephrosis. Assessment & Plan Assessment & Plan (1) Hematuria: Code(s): R31.9 - Hematuria, unspecified Category: Medical (2) Renal calculi: Code(s): N20.0 - Calculus of kidney Category: Medical Plan sched office cysto, and right ESWL Orders: Orders AMB Urinalysis Automated 11/08/23 Z13.9 - Encounter for screening, unspecified Patient Instructions: The patient had an opportunity to ask questions regarding treatment plan. The patient expressed understanding and agreement with the above treatment plan. The patient is aware they should contact our office by phone for worsening of their current condition or the appearance of new symptoms. Compliance is encouraged with any medications and followup testing that is ordered. It is a privilege to be allowed the opportunity to participate in the urologic care of your patient. If you have any questions or concerns regarding treatment for the above conditions please do not hesitate to contact me. The office telephone contact is [phone]. This note is constructed in part using voice recognition software. While every effort has been made to ensure accuracy jewel bearing facer errors may have been included. Yours sincerely, Jeremiah Arias MD Coding Level of Care Code New Pt Level 4 (06313) Diagnoses Hematuria R31.9 Renal calculi N20.0
== END 2023-11-08 14:48 | disposition home or self-care (01) ==
PROVIDERS: PCP Family Medicine; Visit Provider Urology
DX: R31.9 Hematuria, unspecified (principal); N20.0 Calculus of kidney
CPT/HCPCS: 99204

== ENCOUNTER → 2023-11-08 13:56 | Outpatient (BNVA) | payer OTHER, SELFPAY | PROVIDERS: PCP Family Medicine; Visit Provider Urology | DX: R31.9 Hematuria, unspecified (principal); N20.0 Calculus of kidney | CPT/HCPCS: 81003 ==

== ENCOUNTER 2023-12-02 11:31 | Outpatient (REF) | payer OTHER, SELFPAY ==
[2023-12-02 11:57] LABS: Appearance Urine Cloudy; Color Urine Yellow; Glucose Urine UA Negative (Negative); Leukocyte Esterase Urine Negative (Negative); Nitrite Urine Negative (Negative); PH 5.5 (5.0-9.0); Urine Blood Negative (Negative); Urine Ketones Negative (Negative); Urine Protein Negative (Neg-Trace)
== END 2023-12-02 11:32 | disposition home or self-care (01) ==
LOC: HO.LNP 11:31
PROVIDERS: Visit Provider Family Medicine
DX: Z00.00 Encounter for general adult medical examination without abnormal findings (principal)
CPT/HCPCS: 81003

== ENCOUNTER 2023-12-11 09:12 | Outpatient (REF) | payer OTHER, SELFPAY ==
[2023-12-11 14:29] LABS: CT PCR NOT DETECTED (Not Detect.); NG PCR NOT DETECTED (Not Detect.)
== END 2023-12-11 09:13 | disposition home or self-care (01) ==
LOC: HO.LAB 09:12
PROVIDERS: PCP Family Medicine; Visit Provider Family Medicine
DX: Z20.2 Contact with and (suspected) exposure to infections with a predominantly sexual mode of transmission (principal)
CPT/HCPCS: 87491; 87591

== ENCOUNTER 2023-12-19 14:19 | Outpatient (AMB) | payer OTHER, SELFPAY ==
--- NOTE | 2023-12-19 14:38 | MHC.OFFVIS ---
Intake Visit Reasons: Discuss ESWL/RECENT HEMATURIA Intake Note: Patient is present for discuss ESWL/Recent hematuria Urology Medication:none Antibiotic Allergy:none Blood Thinner:aspirin Addictions Counselor Required: No Allergies Latex, Natural Rubber Allergy (Severe, Verified 12/23/23 09:36) Blister Fish Containing Products Adverse Reaction (Intermediate, Verified 12/23/23 09:36) nausea Medication List - Last Reconciled 12/19/23 by Jeremiah Arias MD ascorbic acid (vitamin C) 500 mg PO DAILY aspirin 81 mg PO DAILY cholecalciferol (vitamin D3) 25 mcg PO DAILY glucosamine HCl 500 mg PO DAILY oxycodone 5 mg PO Q6-8H PRN HPI Comments Details: 12/19/23- Teddy has h/o gross hematuria and right nephrolithiasis, declines office cystoscopy, will schedule Right ESWL and flexible cystoscopy at that time. Review of chart: 11/08/23--Teddy is a 53-year-old male who is here for evaluation du to hematuria and kidney stones. I have reviewed CTAP 07/2023--There are nonobstructing stones in the right kidney the largest measure up to 0.7 cm, there are approximately 4 stones on the right side. Discussed risks to include but not limited to, blood in the urine, bruising to the skin, kidney hematoma, possible need for another procedure if a stone fragment obstructs the ureter while passing, possible need to repeat procedure if stone is not completely fragmented. [facility] Medical History (Updated 12/23/23 @ 10:12 by Joann Hernandez MD) Hypersomnia Snoring LLQ pain Gross hematuria Lower back pain (~01/2023) Renal calculi COVID-19 vaccine series completed IBS (irritable bowel syndrome) Elevated cholesterol Chronic back pain Borderline diabetes Surgical History History of umbilical hernia repair (~05/16/21) Hx of colonoscopy History of esophagogastroduodenoscopy (EGD) Hx of lithotripsy H/O hernia repair History of laparotomy History of reconstruction of anterior cruciate ligament tear Family History Maternal Uncle Skin cancer Other Mental health disorder Substance use disorder Social History Housing: House Alcohol intake: former Patient Tobacco Use Status: Former Tobacco user Tobacco use type: Cigarette e-Cigarette/Vaping Use: Never Used Second Hand Smoke Exposure: No service: No Current occupational status: employed 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 Current occupational exposures/hazards: No Cognitive needs: No Hearing needs: No Vision needs: No Results AMB Urinalysis, Automated UA Leukoctes 0 Maurilio/uL Last Edit by SANTIAGO Hall on 12/19/23 15:02 UA Nitrite Negative Last Edit by SANTIAGO Hall on 12/19/23 15:02 UA Urobilinogen 0.2 mg/dL Last Edit by SANTIAGO Hall on 12/19/23 15:02 UA Protein 15 mg/dL Last Edit by Ashlee Wilks CCM on 12/19/23 15:02 UA pH 5.5 Last Edit by Ashlee Wilks CCM on 12/19/23 15:02 UA Blood 0 Kip/uL Last Edit by Ashlee Wilks CCM on 12/19/23 15:02 UA Specific [place] 1.025 Last Edit by SANTIAGO Hall on 12/19/23 15:02 UA Ketone Negative Last Edit by SANTIAGO Hall on 12/19/23 15:02 UA Bilirubin 0 mg/dL Last Edit by Ashlee Wilks CCM on 12/19/23 15:02 UA Glucose 0 mg/dL Last Edit by Ashlee Wilks [facility] on 12/19/23 15:02 Results Reviewed Results Reviewed: Laboratory Last Values Urine pH (Auto) 5.5 12/19/23 15:01 Specific [place] (Auto) 1.025 12/19/23 15:01 Urine Protein (Auto) 15 mg/dL 12/19/23 15:01 Glucose (UA)(Auto) 0 mg/dL 12/19/23 15:01 Urine Ketones (Auto) Negative 12/19/23 15:01 Urine Blood (Auto) 0 Kip/uL 12/19/23 15:01 Urine Nitrite (Auto) Negative 12/19/23 15:01 Urine Bilirubin (Auto) 0 mg/dL 12/19/23 15:01 Urine Urobilinogen (Auto) 0.2 mg/dL 12/19/23 15:01 Leukocyte Esterase (Auto) 0 Maurilio/uL 12/19/23 15:01 Assessment & Plan Assessment & Plan (1) Hematuria: Code(s): R31.9 - Hematuria, unspecified Category: Medical (2) Renal calculi: Code(s): N20.0 - Calculus of kidney Category: Medical Plan Right ESWL, flexible cystoscopy under anesthesia Orders: Orders AMB Urinalysis Automated 12/19/23 Z13.9 - Encounter for screening, unspecified Medications: New oxycodone Partial Fill upon patient request. 5 mg PO Q6-8H PRN 6 tabs 0RF pain Coding Level of Care Code Left Without Being Seen Diagnoses Hematuria R31.9 Renal calculi N20.0
== END 2023-12-19 15:29 | disposition left against medical advice (07) ==
PROVIDERS: PCP Family Medicine; Visit Provider Urology
DX: Z13.9 Encounter for screening, unspecified (principal)

== ENCOUNTER → 2023-12-19 14:19 | Outpatient (BNVA) | payer OTHER, SELFPAY | PROVIDERS: PCP Family Medicine; Visit Provider Urology | DX: R31.0 Gross hematuria (principal); N20.0 Calculus of kidney | CPT/HCPCS: 81003 ==

== ENCOUNTER 2023-12-23 09:16 | Outpatient (AMB) | payer OTHER, SELFPAY ==
--- NOTE | 2023-12-23 09:28 | MHC.OFFVIS ---
Vital Signs 12/23/23 09:30 Height 5 ft 6 in Weight 177 lb 8 oz BMI 28.6 BP 122/68 Blood Pressure Location Rt brachial Position Sitting Respiration 16 Pulse 51 Pulse Source Pulse Oximeter Pulse Oximetry (%) 97 Oxygen Delivery Method Room Air Intake Visit Reasons: INP: Thers symptoms/signs - Confirmed Intake Note: Pt presents for evaluation for sleep disturbance. He denies trouble falling asleep, but has trouble staying asleep. Commercial Electrician Required: No Allergies Latex, Natural Rubber Allergy (Severe, Verified 12/23/23 09:36) Blister Fish Containing Products Adverse Reaction (Intermediate, Verified 12/23/23 09:36) nausea HPI Comments Details: 53y/o right handed male comes for evaluation of right UE weakness. ABout 6 mths ago he had an episode where his right UE was weak for 5 minutes. He went to grab a cup from the kitchen and could not move his right arm. He denies right UE pain. But he had tingling lasting few minutes. No further episodes since then . he reports occasional paresthesias in his right scalp - occipital region. He has h/o neck and back pain. He reports chronic sleep issues. He goes to bed at 2 am and 8 am . He has snoring and hypersomnia. [facility] Medical History (Updated 12/23/23 @ 10:12 by Joann Hernandez MD) Hypersomnia Snoring LLQ pain Gross hematuria Lower back pain (~01/2023) Renal calculi COVID-19 vaccine series completed IBS (irritable bowel syndrome) Elevated cholesterol Chronic back pain Borderline diabetes Surgical History History of umbilical hernia repair (~05/16/21) Hx of colonoscopy History of esophagogastroduodenoscopy (EGD) Hx of lithotripsy H/O hernia repair History of laparotomy History of reconstruction of anterior cruciate ligament tear Family History Maternal Uncle Skin cancer Other Mental health disorder Substance use disorder Social History Housing: House Alcohol intake: former Patient Tobacco Use Status: Former Tobacco user Tobacco use type: Cigarette e-Cigarette/Vaping Use: Never Used Second Hand Smoke Exposure: No service: No Current occupational status: employed 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 Current occupational exposures/hazards: No Cognitive needs: No Hearing needs: No Vision needs: No Physical Exam Vital Signs: Last Vital Signs Pulse 51 12/23/23 09:30 Resp 16 12/23/23 09:30 BP 122/68 12/23/23 09:30 Pulse Ox 97 12/23/23 09:30 Oxygen Delivery Method Room Air 12/23/23 09:30 BMI result Body Mass Index 28.6 Const General: cooperative, healthy appearing and comfortable Nutritional Appearance: average body habitus Orientation/consciousness: patient oriented x3 Limitations: no limitations Eyes Pupils: Equal, round and reactive pupils present Neuro General: patient oriented x3, gait normal, tone normal, moves all extremities and no focal motor deficits Cranial nerves: Yes Facial sensation intact/muscles of mastication intact, Yes Equal, round and reactive pupils present, Yes Bilaterally intact EOM present, Yes Nystagmus not present, Yes Normal facial strength present and Yes Midline tongue present Cognition (Neuro): normal cognition Gait exam (Neuro): Normal gait present Motor exam (neuro): 5/5 motor strength present throughout and Normal motor muscle tone present throughout Deep tendon reflexes (DTR's): Right triceps reflex intensity grade: 1+, Left triceps reflex intensity grade: 1+, Rt Biceps (C5, C6): 1+, Left biceps reflex intensity grade: 1+, Right brachioradialis reflex intensity grade: 1+, Left brachioradialis reflex intensity grade: 1+, Right patellar reflex intensity grade: 1+ and Left patellar reflex intensity grade: 1+ Coordination: [id number] test normal Results Reviewed Results Reviewed: MRI 2021 spine- reversal of lordosis ,mild rightward curvature of the cervical spine. Multilevel spondylitic changes with small disc protrusions. No central canal stenosis. Kcuvjfre-ag-hljioy foraminal narrowing, more so on the right side at the C3-C4 level. Significant left foraminal narrowing at the C5-C6 level with a small central disc protrusion. Mixed chronic and edematous endplate changes at the C6-C7 level with a disc-osteophyte complex and severe foraminal narrowing, more so on the right side. THORACIC SPINE: Mild spondylosis. No cord signal abnormality. Small disc protrusions in the mid to lower thoracic spine. No central canal stenosis. Lumbar spine MRI 2021 multilevel degenerative disc disease and facet arthrosis. Head CT - 2023 no intracranial hemorrhage. There is no evidence of acute/subacute cerebral or cerebellar infarction. There is no midline shift, mass effect, or extra-axial fluid collection. The ventricles are normal in size and configuration. The orbits are symmetric and within normal limits. The calvarium is intact. The mastoid air cells are well aerated. Visualized paranasal sinuses are clear. Assessment & Plan Assessment & Plan (1) Cervicalgia: Comment: cervical spondylosis Code(s): M54.2 - Cervicalgia Category: Medical (2) Cervical radiculopathy: Comment: ? right UE weakness Code(s): M54.12 - Radiculopathy, cervical region Category: Medical (3) Snoring: Code(s): R06.83 - Snoring Category: Medical (4) Hypersomnia: Code(s): G47.10 - Hypersomnia, unspecified Category: Medical Plan Home sleep study to r/o sleep apnea Will consider repeat C spine imaging PT for neck tightness Orders: Orders PT Evaluation and Treatment Today M54.2 - Cervicalgia RT home sleep study Today G47.10 - Hypersomnia, unspecified, R06.83 - Snoring Coding Level of Care Code New Pt Level 4 (84364) Diagnoses Cervicalgia M54.2 Cervical radiculopathy M54.12 Snoring R06.83 Hypersomnia G47.10
[2023-12-23 09:30] VITALS: BP 122/68; PULSE 51; RESP 16; O2SAT 97; BMI 28.6
== END 2023-12-23 10:20 | disposition home or self-care (01) ==
PROVIDERS: PCP Family Medicine; Visit Provider Psychiatry & Neurology Neurology
DX: M54.2 Cervicalgia (principal); M54.12 Radiculopathy, cervical region; R06.83 Snoring; G47.10 Hypersomnia, unspecified
CPT/HCPCS: 99204

== ENCOUNTER → 2023-12-23 09:16 | Outpatient (BNVA) | payer OTHER, SELFPAY | PROVIDERS: PCP Family Medicine; Visit Provider Psychiatry & Neurology Neurology ==

== ENCOUNTER → 2024-02-05 09:55 | Outpatient (REF) | payer OTHER, SELFPAY | LOC: HO.SL 09:55 | PROVIDERS: PCP Family Medicine; Visit Provider Psychiatry & Neurology Neurology | DX: R06.83 Snoring (principal); G47.10 Hypersomnia, unspecified | CPT/HCPCS: 95806 ==

== ENCOUNTER 2024-02-05 10:04 | Outpatient (REF) | payer OTHER, SELFPAY ==
--- NOTE | ~2024-02-05 | US_ITS ---
EXAMINATION: US RETROPERITONEAL LIMITED (RENAL ONLY) CLINICAL INFORMATION: Hematuria. COMPARISON: KUB 02/05/2024, CT abdomen and pelvis 08/14/2023. TECHNIQUE: Dedicated ultrasound images of the bilateral kidneys. FINDINGS: RIGHT KIDNEY: 11.2 x 5.6 x 5.1 cm (SAG x AP x TRV). No hydronephrosis. Renal cortical thickness is normal. Nonobstructive calculi, largest 1.0 cm lower pole and 0.6 cm mid to lower pole nonobstructive calculi. Limited visualization. LEFT KIDNEY: 10.6 x 4.8 x 4.1 cm (SAG x AP x TRV). No hydronephrosis. Renal cortical thickness is normal. Limited visualization. 0.3 cm mid pole nonobstructive calculus. US/US renal BI IMPRESSION: Bilateral nephrolithiasis. No hydronephrosis. This study was presented today, February 05, 2024, for interpretation. Stat results provided at this time as requested by referring provider. Electronically signed by: Aida Lorenzo MD 02/05/2024 01:56 PM EDT
--- NOTE | ~2024-02-05 | XR_ITS ---
EXAMINATION: XR ABDOMEN KUB CLINICAL INDICATION: Calculus of kidney COMPARISON: CT abdomen and pelvis of 08/14/2023, renal ultrasound of 02/05/2024 TECHNIQUE: 2 AP views of the abdomen. FINDINGS: Large amount of stool in the colon. Nonobstructive bowel gas pattern. Mild degenerative changes in the thoracic spine. Possible 7 mm right mid to lower pole calculus. Substantially limited evaluation for renal calculi due to overlying bowel. XR/XR KUB IMPRESSION: Possible 7 mm right mid to lower pole calculus. Substantially limited evaluation for renal calculi due to overlying bowel. Electronically signed by: Aida Lorenzo MD 02/05/2024 01:44 PM EDT
== END 2024-02-05 10:05 | disposition home or self-care (01) ==
LOC: HO.US 10:04
PROVIDERS: PCP Family Medicine; Visit Provider Urology
DX: N20.0 Calculus of kidney (principal); R31.9 Hematuria, unspecified
CPT/HCPCS: 74018; 76775

== ENCOUNTER → 2024-02-06 10:39 | Outpatient (BNV) | payer OTHER, SELFPAY | PROVIDERS: PCP Family Medicine; Visit Provider Psychiatry & Neurology Neurology | DX: G47.33 Obstructive sleep apnea (adult) (pediatric) (principal) | CPT/HCPCS: 95806 ==

== ENCOUNTER 2024-03-04 07:51 | Day surgery (SDC) | payer OTHER, SELFPAY ==
[2024-03-02 15:10] VITALS: BMI 28.0
--- NOTE | 2024-03-03 12:01 | HO.ANESPROP2 ---
Documented by User: Jovita Birmingham NP 03/03/24 12:26 HPI - Anesthesia Eval Consult details Narrative: 53yo M for Colonoscopy PMFSH Active Problems Active Problems: All Active Problems Tooth pain (Acute) Screening for STD (sexually transmitted disease) (Acute) Encounter for general adult medical examination without abnormal findings (Acute) Pain of molar (Acute) Calf cramp (Acute) Cervicalgia (Acute) Hematuria (Acute) Right foot pain (Acute) HSV-1 (herpes simplex virus 1) infection (Acute) URI (upper respiratory infection) (Acute) Depression with anxiety (Acute) Pre-diabetes (Acute) Sleep apnea (Acute) Nasal congestion (Acute) Adult general medical exam (Acute) Screening for prostate cancer (Acute) Back pain (Acute) Tooth abscess (Acute) Left ear pain (Acute) Abrasion of left arm (Acute) Sore throat (viral) (Acute) Strep pharyngitis (Acute) Upper back pain (Acute) Cervical radiculopathy (Acute) Low HDL (under 40) (Acute) Muscle strain of right upper back (Acute) Anxiety (Acute) Hyperlipidemia (Acute) Elevated fasting blood sugar (Acute) Umbilical hernia (Acute) IBS (irritable bowel syndrome) (Acute) Skin tag (Acute) Mixed hyperlipidemia (Acute) Earache (Acute) Tendonitis of shoulder, right (Acute) Painful arc syndrome of right shoulder (Acute) Biceps tendinitis of right shoulder (Acute) Dizziness (Acute) Exposure to COVID-19 virus (Acute) Muscle spasm (Acute) Screening for colon cancer (Acute) Abdominal pain (Acute) Bloating (Acute) Right shoulder pain (Acute) Neoplasm of uncertain behavior (Acute) Cough (Acute) Elevated blood pressure reading (Acute) Right shoulder pain (Acute) Acute meniscal tear of right knee (Acute) Tear of medial collateral ligament of knee (Acute) Medial collateral ligament sprain of knee (Acute) Right knee pain (Acute) Laboratory examination ordered as part of a routine general medical examination (Acute) Exposure to COVID-19 virus (Acute) Pressure sensation in left ear (Acute) Hypersomnia (Acute) Snoring (Acute) Renal calculi (Acute) LLQ pain (Acute) Gross hematuria (Acute) Lower back pain (Acute ~01/2023) H/O hernia repair (Acute) History of laparotomy (Acute) Chronic back pain (Acute) Borderline diabetes (Acute) Past Medical History Medical History Hypersomnia Snoring LLQ pain Gross hematuria Lower back pain (~01/2023) Renal calculi COVID-19 vaccine series completed IBS (irritable bowel syndrome) Elevated cholesterol Chronic back pain Borderline diabetes Family History Family History Maternal Uncle Skin cancer Other Mental health disorder Substance use disorder Family history of problems with anesthesia: No Surgical History Surgical History History of umbilical hernia repair (05/16/21) Hx of colonoscopy (02/16/21) History of esophagogastroduodenoscopy (EGD) (02/16/21) Hx of lithotripsy H/O hernia repair History of laparotomy History of reconstruction of anterior cruciate ligament tear History of Problems with Anesthesia: No Social History Social History Housing: House Are you a primary day care center director to a significant other at home: No Alcohol intake: former Patient Tobacco Use Status: Former Tobacco user Tobacco use type: Cigarette e-Cigarette/Vaping Use: Never Used Second Hand Smoke Exposure: No Use of substances other than those prescribed or required for medical reasons: No Have you been hit, kicked, punched, or otherwise hurt by someone within the past year? 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 Current occupational exposures/hazards: No Cognitive needs: No Hearing needs: No Vision needs: No Meds Allergies Allergy/AdvReac Type Severity Reaction Status Date / Time Latex, Natural Rubber Allergy Severe Blister Verified 03/04/24 08:19 Fish Containing Products AdvReac Intermediate nausea Verified 03/04/24 08:19 Home Medications ?Medication ?Instructions ?Recorded ?Confirmed ?Last Taken ?Type aspirin 81 mg tablet,delayed 81 mg PO DAILY 07/18/23 03/04/24 02/19/24 History release glucosamine HCl 500 mg tablet 500 mg PO DAILY 08/06/23 03/04/24 Unknown History ascorbic acid (vitamin C) 500 mg 500 mg PO DAILY 11/07/23 03/04/24 Unknown History tablet cholecalciferol (vitamin D3) 25 25 mcg PO DAILY 11/07/23 03/04/24 Unknown History mcg (1,000 unit) capsule Exam Height,Weight and Vital Signs: Height 5 ft 6 in Weight 78.698 kg Assessment and Plan Assessment Anesthesia Assessment: Chart Reviewed Final Anesthetic Review Family History of Problems with Anesthesia: No History of Problems with Anesthesia: No Documented by User: Tia Gonzalez MD 03/04/24 09:04 PMFSH Past Medical History Medical History Hypersomnia Snoring LLQ pain Gross hematuria Lower back pain (~01/2023) Renal calculi COVID-19 vaccine series completed IBS (irritable bowel syndrome) Elevated cholesterol Chronic back pain Borderline diabetes Family History Family History Maternal Uncle Skin cancer Other Mental health disorder Substance use disorder Surgical History Surgical History History of umbilical hernia repair (05/16/21) Hx of colonoscopy (02/16/21) History of esophagogastroduodenoscopy (EGD) (02/16/21) Hx of lithotripsy H/O hernia repair History of laparotomy History of reconstruction of anterior cruciate ligament tear Social History Social History Housing: House Are you a primary day care center director to a significant other at home: No Alcohol intake: former Patient Tobacco Use Status: Former Tobacco user Tobacco use type: Cigarette e-Cigarette/Vaping Use: Never Used Second Hand Smoke Exposure: No Use of substances other than those prescribed or required for medical reasons: No Have you been hit, kicked, punched, or otherwise hurt by someone within the past year? 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 Current occupational exposures/hazards: No Cognitive needs: No Hearing needs: No Vision needs: No Meds Allergies Allergy/AdvReac Type Severity Reaction Status Date / Time Latex, Natural Rubber Allergy Severe Blister Verified 03/04/24 08:19 Fish Containing Products AdvReac Intermediate nausea Verified 03/04/24 08:19 Home Medications ?Medication ?Instructions ?Recorded ?Confirmed ?Last Taken ?Type aspirin 81 mg tablet,delayed 81 mg PO DAILY 07/18/23 03/04/24 02/19/24 History release glucosamine HCl 500 mg tablet 500 mg PO DAILY 08/06/23 03/04/24 Unknown History ascorbic acid (vitamin C) 500 mg 500 mg PO DAILY 11/07/23 03/04/24 Unknown History tablet cholecalciferol (vitamin D3) 25 25 mcg PO DAILY 11/07/23 03/04/24 Unknown History mcg (1,000 unit) capsule Exam Airway Mallampati Class: III TM Dist: >3cm Neck ROM: Full Loose/Missing/Broken Teeth: No Heart: RRR Lungs: CTA Assessment and Plan Assessment Anesthesia Assessment: Anesthesia Plan Discussed Final Anesthetic Review NPO: Yes ASA Class: II Final Preanesthetic Review: Meds/Allgs Chart Reviewed, Consent Obtained/Reviewed and Anes Risks/Benef Reviewed Patient Risk: Low Procedure Risk: Low Anesthetic Plan Anesthetic Plan: MAC: Disposition: Standard PACU
[2024-03-04 08:24] VITALS: BMI 28.6
[2024-03-04 08:57] VITALS: BP 156/73; PULSE 50; RESP 12; TEMP 36.7; O2SAT 98
[2024-03-04] MEDS: Lactated Ringers 1,000 ML 100 ML IVCONT (08:59)
--- NOTE | 2024-03-04 09:27 | MHC.SHP ---
Pre-Procedural Eval Section A - 24 Hr Update-Section A only Date of Service: 03/04/24 Section B - Complete if H&P > 30 days Chief Complaint: Other hemorrhoids Relevant Family History (Specify if Yes): No Relevant Social History: None Present Medications: see Short Stay Collaborative assessment Medical History: Significant History (Hypersomnia Snoring LLQ pain Gross hematuria Lower back pain (~01/2023) Renal calculi COVID-19 vaccine series completed IBS (irritable bowel syndrome) Elevated cholesterol Chronic back pain Borderline diabetes) History of Previous Operations: Relevant previous surgery/procedure and date(s) (History of umbilical hernia repair (05/16/21) Hx of colonoscopy (02/16/21) History of esophagogastroduodenoscopy (EGD) (02/16/21) Hx of lithotripsy H/O hernia repair History of laparotomy History of reconstruction of anterior cruciate ligament tear) Allergies: Allergies Allergy/AdvReac Type Severity Reaction Status Date / Time Latex, Natural Rubber Allergy Severe Blister Verified 03/04/24 08:19 Fish Containing Products AdvReac Intermediate nausea Verified 03/04/24 08:19 Review of Systems Sugical H&P ROS: Negative: Constitution, Cardiovascular, Respiratory, Neurological, Psychiatric, Hem-Onc, Allergic/Immunologic, Gastrointestinal, Genitourinary, Musculoskeletal, Integumentary, Endocrine and Eyes/Ears/Nose/Throat Exam Surgical H&P Exam: Normal: HEENT, Normal: Heart, Normal: Lungs, Normal: Extremities, Normal: Abdomen, Normal: Skin and Normal: Neurological Plan Diagnosis/Plan: Unchanged I have reviewed the history and physical and performed a pertinent physical examination on my patient. No changes have occurred unless specified. Time Spent With Patient Time: Total time managing care of this patient today ____ minutes.
--- NOTE | 2024-03-04 09:29 | HO.OPN-COLON ---
Colonoscopy Operative Note Operative Note Date of Service: 03/04/24 Narrative: Operative Information Procedure Description: Colonoscopy Indication: screening, prior colo with poor prep right side Anesthesia: MAC COLONOSCOPY Instrument: Olympus variable stiffness pediatric scope 190L Colonoscopy Monitoring: Vital signs and clinical assessment, continuous EKG monitoring, Pulse oximetry, Carbon Dioxide monitoring and blood pressure monitoring were done throughout the procedure. Colon withdrawal time was 11 minutes. Procedure: The patient was placed in the left lateral decubitis position and pre-procedure medications were administered. After a digital rectal examination of the ano-rectum, the video colonoscope was inserted into the rectum and advanced through the colon to the cecum/TI. The colonoscope was slowly withdrawn in a retrograde panoramic fashion and the colon mucosa was carefully examined including a retroflexed view of the rectum. Findings and interventions are described below. Procedure Difficulty: easy Findings: Terminal Ileum-normal Cecum: 8-10 mm flat polyp lifted with eleview and removed with cold snare Ascending Colon: normal Transverse Colon -normal Descending Colon:normal Sigmoid Colon: normal Rectum: Retroflexion with small internal hemorrhoids seen, grade I Anorectum - normal Intervention: cold snare and eleview injection for EMR Colon preparation: [place] Bowel Preparation Scale Right colon; 2 Transverse colon: 3 Left colon; 3 (0 = Unprepared colon segment with mucosa not seen due to solid stool that cannot be cleared. 1 = Portion of mucosa of the colon segment seen, but other areas of the colon segment not well seen due to staining, residual stool and/or opaque liquid. 2 = Minor amount of residual staining, small fragments of stool and/or opaque liquid, but mucosa of colon segment seen well. 3 = Entire mucosa of colon segment seen well with no residual staining, small fragments of stool or opaque liquid) Impression and Post Procedure Diagnosis: colon polyp internal hemorrhoids Plan: High fiber diet leaflet Avoid straining at stool, epsom salts and sitz bath, anusol supps or cream Repeat Colonoscopy in 5 years due to adenomatous appearing polyp by markings or earlier if clinically indicated Above findings were reviewed with the patient and relevant handouts were provided if indicated.
[2024-03-04 09:33] VITALS: BP 156/73; PULSE 50; RESP 14; TEMP 36.7; O2SAT 98
[2024-03-04 09:57] VITALS: BP 127/67; PULSE 62; RESP 16; TEMP 36.5; O2SAT 100
[2024-03-04 10:10] VITALS: BP 119/65; PULSE 50; RESP 16; O2SAT 99
[2024-03-04 10:25] VITALS: BP 141/78; PULSE 50; RESP 16; TEMP 36.3; O2SAT 100
== END 2024-03-04 10:46 | disposition home or self-care (01) ==
PROVIDERS: PCP Family Medicine; Visit Provider Internal Medicine Gastroenterology
PROC: 0DJD8ZZ Inspection of Lower Intestinal Tract, Via Natural or Artificial Opening Endoscopic (ICD-10-PCS; CPT 45378; principal; 2024-03-04 09:20)
DX: Z12.11 Encounter for screening for malignant neoplasm of colon (principal); K63.5 Polyp of colon; K64.0 First degree hemorrhoids; R73.03 Prediabetes; E78.5 Hyperlipidemia, unspecified; Z87.891 Personal history of nicotine dependence; Z79.82 Long term (current) use of aspirin; Z79.899 Other long term (current) drug therapy
CPT/HCPCS: 45385; 45381; 88305; J2003; J2704

== ENCOUNTER → 2024-03-04 07:51 | Outpatient (BNV) | payer OTHER, SELFPAY | PROVIDERS: PCP Family Medicine; Visit Provider Internal Medicine Gastroenterology | DX: Z12.11 Encounter for screening for malignant neoplasm of colon (principal); K63.5 Polyp of colon; K64.0 First degree hemorrhoids | CPT/HCPCS: 45381; 45385 ==

== ENCOUNTER 2024-03-18 07:51 | Day surgery (SDC) | payer OTHER, SELFPAY ==
[2024-03-16 13:10] VITALS: BMI 28.6
--- NOTE | 2024-03-17 12:50 | P.CONAN_ITS ---
Documented by User: Jovita Birmingham NP 03/17/24 12:50 HPI - Anesthesia Eval Consult details Narrative: 53yo M for Right ESWL PMFSH Active Problems Active Problems: All Active Problems Tooth pain (Acute) Screening for STD (sexually transmitted disease) (Acute) Encounter for general adult medical examination without abnormal findings (Acute) Pain of molar (Acute) Calf cramp (Acute) Cervicalgia (Acute) Hematuria (Acute) Right foot pain (Acute) HSV-1 (herpes simplex virus 1) infection (Acute) URI (upper respiratory infection) (Acute) Depression with anxiety (Acute) Pre-diabetes (Acute) Sleep apnea (Acute) Nasal congestion (Acute) Adult general medical exam (Acute) Screening for prostate cancer (Acute) Back pain (Acute) Tooth abscess (Acute) Left ear pain (Acute) Abrasion of left arm (Acute) Sore throat (viral) (Acute) Strep pharyngitis (Acute) Upper back pain (Acute) Cervical radiculopathy (Acute) Low HDL (under 40) (Acute) Muscle strain of right upper back (Acute) Anxiety (Acute) Hyperlipidemia (Acute) Elevated fasting blood sugar (Acute) Umbilical hernia (Acute) IBS (irritable bowel syndrome) (Acute) Skin tag (Acute) Mixed hyperlipidemia (Acute) Earache (Acute) Tendonitis of shoulder, right (Acute) Painful arc syndrome of right shoulder (Acute) Biceps tendinitis of right shoulder (Acute) Dizziness (Acute) Exposure to COVID-19 virus (Acute) Muscle spasm (Acute) Screening for colon cancer (Acute) Abdominal pain (Acute) Bloating (Acute) Right shoulder pain (Acute) Neoplasm of uncertain behavior (Acute) Cough (Acute) Elevated blood pressure reading (Acute) Right shoulder pain (Acute) Acute meniscal tear of right knee (Acute) Tear of medial collateral ligament of knee (Acute) Medial collateral ligament sprain of knee (Acute) Right knee pain (Acute) Laboratory examination ordered as part of a routine general medical examination (Acute) Exposure to COVID-19 virus (Acute) Pressure sensation in left ear (Acute) Hypersomnia (Acute) Snoring (Acute) Renal calculi (Acute) LLQ pain (Acute) Gross hematuria (Acute) Lower back pain (Acute ~01/2023) H/O hernia repair (Acute) History of laparotomy (Acute) Chronic back pain (Acute) Borderline diabetes (Acute) Past Medical History Medical History Anxiety Hypersomnia Snoring LLQ pain Gross hematuria Lower back pain (~01/2023) Renal calculi IBS (irritable bowel syndrome) Elevated cholesterol Chronic back pain Borderline diabetes Family History Family History Maternal Uncle Skin cancer Other Mental health disorder Substance use disorder Family history of problems with anesthesia: No Surgical History Surgical History History of umbilical hernia repair (05/16/21) Hx of colonoscopy (02/16/21) History of esophagogastroduodenoscopy (EGD) (02/16/21) Hx of lithotripsy H/O hernia repair History of laparotomy History of reconstruction of anterior cruciate ligament tear History of Problems with Anesthesia: No Social History Social History Housing: House Are you a primary pet care associate to a significant other at home: No Alcohol intake: former Patient Tobacco Use Status: Former Tobacco user Tobacco use type: Cigarette e-Cigarette/Vaping Use: Never Used Second Hand Smoke Exposure: No Have you been hit, kicked, punched, or otherwise hurt by someone within the past year? 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 Current occupational exposures/hazards: No Cognitive needs: No Hearing needs: No Vision needs: No Meds Allergies Allergy/AdvReac Type Severity Reaction Status Date / Time Latex, Natural Rubber Allergy Severe Blister Verified 03/04/24 08:19 Fish Containing Products AdvReac Intermediate nausea Verified 03/04/24 08:19 Home Medications ?Medication ?Instructions ?Recorded ?Confirmed ?Last Taken ?Type aspirin 81 mg tablet,delayed 81 mg PO DAILY 07/18/23 03/16/24 02/19/24 History release glucosamine HCl 500 mg tablet 500 mg PO DAILY 08/06/23 03/16/24 Unknown History ascorbic acid (vitamin C) 500 mg 500 mg PO DAILY 11/07/23 03/16/24 Unknown History tablet cholecalciferol (vitamin D3) 25 25 mcg PO DAILY 11/07/23 03/16/24 Unknown History mcg (1,000 unit) capsule Exam Height,Weight and Vital Signs: Height 5 ft 6 in Weight 80.286 kg Assessment and Plan Assessment Anesthesia Assessment: Chart Reviewed Final Anesthetic Review Family History of Problems with Anesthesia: No History of Problems with Anesthesia: No Documented by User: Zina Ball MD 03/18/24 09:04 [facility] Past Medical History Medical History Anxiety Hypersomnia Snoring LLQ pain Gross hematuria Lower back pain (~01/2023) Renal calculi IBS (irritable bowel syndrome) Elevated cholesterol Chronic back pain Borderline diabetes Family History Family History Maternal Uncle Skin cancer Other Mental health disorder Substance use disorder Surgical History Surgical History History of umbilical hernia repair (05/16/21) Hx of colonoscopy (02/16/21) History of esophagogastroduodenoscopy (EGD) (02/16/21) Hx of lithotripsy H/O hernia repair History of laparotomy History of reconstruction of anterior cruciate ligament tear Social History Social History Housing: House Are you a primary pet care associate to a significant other at home: No Alcohol intake: former Patient Tobacco Use Status: Former Tobacco user Tobacco use type: Cigarette e-Cigarette/Vaping Use: Never Used Second Hand Smoke Exposure: No Have you been hit, kicked, punched, or otherwise hurt by someone within the past year? 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 Current occupational exposures/hazards: No Cognitive needs: No Hearing needs: No Vision needs: No Meds Allergies Allergy/AdvReac Type Severity Reaction Status Date / Time Latex, Natural Rubber Allergy Severe Blister Verified 03/04/24 08:19 Fish Containing Products AdvReac Intermediate nausea Verified 03/04/24 08:19 Home Medications ?Medication ?Instructions ?Recorded ?Confirmed ?Last Taken ?Type aspirin 81 mg tablet,delayed 81 mg PO DAILY 07/18/23 03/16/24 02/19/24 History release glucosamine HCl 500 mg tablet 500 mg PO DAILY 08/06/23 03/16/24 Unknown History ascorbic acid (vitamin C) 500 mg 500 mg PO DAILY 11/07/23 03/16/24 Unknown History tablet cholecalciferol (vitamin D3) 25 25 mcg PO DAILY 11/07/23 03/16/24 Unknown History mcg (1,000 unit) capsule Exam Airway Mallampati Class: II TM Dist: >3cm Neck ROM: Full Heart: rrr Lungs: cta Assessment and Plan Assessment Anesthesia Assessment: Anesthesia Plan Discussed Final Anesthetic Review NPO: Yes ASA Class: II Final Preanesthetic Review: No Changes in Pt Med Stat, Meds/Allgs Chart Reviewed, Consent Obtained/Reviewed and Anes Risks/Benef Reviewed Patient Risk: Low Procedure Risk: Low Anesthetic Plan Anesthetic Plan: MAC: Disposition: Standard PACU
--- NOTE | ~2024-03-18 | XR_ITS ---
EXAMINATION: XR ABDOMEN KUB CLINICAL INDICATION: Kidney stones. COMPARISON: Most recent renal ultrasound dated 02/05/2024 and radiographs dated 02/05/2024. TECHNIQUE: AP views of the abdomen. FINDINGS: Right-sided renal stone measuring up to 0.8 cm. The previously seen left-sided renal stones are not appreciated on plain radiographs, and evaluation is somewhat limited due to overlying stool. Jfke-[id number]-ribhhyzo stool burden. Nonobstructive bowel gas pattern. No acute osseous abnormality. XR/XR KUB IMPRESSION: 1. Right-sided renal stone measuring up to 0.8 cm. Previously seen left-sided renal stones not appreciated on plain radiographs, and evaluation is somewhat limited due to overlying stool. 2. Kobl-wb-[id number] stool burden. Electronically signed by: Trenton Espino MD 03/18/2024 10:46 AM [facility]
[2024-03-18 08:14] VITALS: BP 142/67; PULSE 59; RESP 18; TEMP 36.9; O2SAT 98; BMI 28.9
[2024-03-18] MEDS: Lactated Ringers 1,000 ML 999 ML IV (08:38)
--- NOTE | 2024-03-18 09:59 | PC.NURSE ---
pt received one liter of fluids in prep op
--- NOTE | 2024-03-18 10:01 | MHC.SHP ---
Pre-Procedural Eval Section A - 24 Hr Update-Section A only Date of Service: 03/18/24 The patient is an INPATIENT: No Changes since office visit: No Cold of Flu in the past 2 weeks, No New Medical Problems, No Changes in Medication and No Patient answered all questions The patient has been examined within 24 hours of the surgical procedure. The History & Physical has been completed within 30 days and I have reviewed it.: Yes Section B - Complete if H&P > 30 days Chief Complaint: Calculus of kidney Details of Present Illness: 10mm right renal stone witrh hematuria - check cysto Allergies: Allergies Allergy/AdvReac Type Severity Reaction Status Date / Time Latex, Natural Rubber Allergy Severe Blister Verified 03/04/24 08:19 Fish Containing Products AdvReac Intermediate nausea Verified 03/04/24 08:19 Plan Diagnosis/Plan: Unchanged (right eswl with check cystoscopy) I have reviewed the history and physical and performed a pertinent physical examination on my patient. No changes have occurred unless specified. Time Spent With Patient Time: Total time managing care of this patient today ____ minutes.
--- NOTE | 2024-03-18 10:30 | P.OP_ITS ---
Operative Note Operative Note Date of Service: 03/18/24 Narrative: PreOperative Diagnosis: right Renal stones with hematuria Post Operative Diagnosis: right Renal stones - normal bladder Procedure: right ESWL with cystoscopy Surgeon: Dr Bill Garrison Anesthesia: mac/sedation Indications for procedure: The patient understands ESWL may be a staged procedure and subsequent intervention may be required based on imaging after ESWL. Quoted stone clearance rates for a solitary procedure are in the 70-80% range based primarily on stone location. They also understand there is a risk of bleeding to the kidney, infection, damage to adjacent organs, and stone migration following the procedure. - Imaging 10mm stone right side with hematuria Procedure optimization has been performed with IV acetaminophen given in the holding area and 1 L of lactated Ringer's to be given in order to optimize the fluid-stone interface. 20 mg of IV Lasix will be given in the last 5 minutes of the procedure to optimize stone clearance. Procedure: After informed consent was verified the patient was brought to the operating ro om and placed in a supine position. Anesthesia was performed per protocol. Safety pause time-out was performed. Imaging was displayed in the room and laterality confirmed. Cystoscopy - anterior and posterior urethra normal, normal prostate, normal bladder mucosa ESWL was performed. The 1st 500 shocks were performed at 60 hertz. These were performed with increasing power. Once maximum power was reached the rate was increased to 180 hertz. A total of 2500 shocks were given. Targeted imaging with ultrasound/fluoroscopy showed stone smudging suggestive of disintegration. The patient tolerated the procedure well and was transferred to the recovery area upon completion. Post procedure imaging will be organized. There was no evidence for flank discoloration.
[2024-03-18 10:54] VITALS: BP 118/56; PULSE 65; RESP 16; TEMP 36.1; O2SAT 98
[2024-03-18 10:59] VITALS: BP 108/59; PULSE 55; RESP 18; O2SAT 97
[2024-03-18 11:16] VITALS: BP 112/64; PULSE 65; RESP 18; TEMP 36.1; O2SAT 97
== END 2024-03-18 11:43 | disposition home or self-care (01) ==
PROVIDERS: PCP Family Medicine; Visit Provider Urology
PROC: (CPT 50590; principal; 2024-03-18 10:10)
PROC: 0TJB8ZZ Inspection of Bladder, Via Natural or Artificial Opening Endoscopic (ICD-10-PCS; CPT 52000; 2024-03-18 10:10)
DX: N20.0 Calculus of kidney (principal); R31.9 Hematuria, unspecified; R73.03 Prediabetes; E78.00 Pure hypercholesterolemia, unspecified; G89.29 Other chronic pain; M54.50 Low back pain, unspecified; G47.33 Obstructive sleep apnea (adult) (pediatric); Z79.899 Other long term (current) drug therapy; Z79.82 Long term (current) use of aspirin; Z91.040 Latex allergy status; Z98.890 Other specified postprocedural states; Z87.891 Personal history of nicotine dependence; Z87.442 Personal history of urinary calculi
CPT/HCPCS: 50590; 52000; 74018; J0131; J1940; J2003; J2704; J3010

== ENCOUNTER → 2024-03-18 07:51 | Outpatient (BNV) | payer OTHER, SELFPAY | PROVIDERS: PCP Family Medicine; Visit Provider Urology | DX: N20.0 Calculus of kidney (principal); R31.9 Hematuria, unspecified | CPT/HCPCS: 50590; 52000 ==

== ENCOUNTER 2024-04-01 03:37 | Emergency (ER) | payer OTHER, SELFPAY ==
--- NOTE | ~2024-04-01 | CT_ITS ---
EXAMINATION: CT ABDOMEN AND PELVIS WITHOUT CONTRAST CLINICAL INFORMATION: Positive lithotripsy of pain, right side. COMPARISON: CT dated August 14, 2023. TECHNIQUE: Multidetector volumetric imaging was performed from the superior aspect of the liver through the pubic symphysis. Sagittal and coronal reformatted images were obtained on the technologist's workstation. This CT examination was performed using dose optimization techniques as appropriate, variously including the following: *Automated exposure control *Adjustment of mA and/or kV according to patient size (this includes techniques or standardized protocols for targeted exams where dose is matched to indication/reason for exam; i.e. extremities or head) *Use of iterative reconstruction technique DLP: 542 mGy-cm FINDINGS: Limited evaluation of the intra-abdominal organs and vascular structures due to lack of IV contrast. LUNG BASES: No acute airspace disease. Subsegmental atelectasis peripheral left lung base. LIVER, GALLBLADDER, AND BILIARY TREE: Liver measures 16 cm. No pericholecystic fluid collection or gallbladder wall thickening. No intrahepatic or extrahepatic biliary ductal dilatation. PANCREAS: No peripancreatic fluid collections. No main pancreatic ductal dilatation. SPLEEN: 11 cm. ADRENAL GLANDS: Soft tissue fullness without nodular lesion in the left adrenal gland. No nodular lesion right adrenal gland. KIDNEYS AND URETERS: Right kidney: Hydronephrosis, moderate. There is a 2.4 mm calculus in the proximal right ureter. There is a stack of 1.5 mm calculi in the distal right ureter. Perinephric/pararenal edema pattern. Multiple calculi layering in the pelvicalyceal system midportion and lower pole. Left kidney: No hydronephrosis. No nephrolithiasis. BLADDER: Fluid-filled. No intraluminal calculus. GASTROINTESTINAL TRACT: Abundant stool within the large intestine. No intestinal obstruction pattern. Gas and fluid-filled prominent distal small bowel loops. Fecal material in the distal ileal loops. I do not see the appendix, though no pericecal edema pattern. No pneumoperitoneum. No ascites. Mild mesenteric edema pattern. ABDOMINAL WALL: Small fat-containing periumbilical hernia. LYMPH NODES: Nonspecific prominent mesenteric and retroperitoneal lymph nodes. VASCULAR: Calcified plaques abdominal aorta wall. No aneurysm in the abdominal aorta. PELVIC VISCERA: The prostate gland is not enlarged. OSSEOUS STRUCTURES: Spina bifida occulta S1. Multilevel thoracolumbar spondylosis more conspicuous at L5-S1 and to a lesser extent L3-4 and L4-5 levels resulting in bilateral neuroforamina narrowing. CT/CT abdomen pelvis wo IV con IMPRESSION: Obstructing/calculi uropathy, right side resulting in moderate right hydronephrosis. Superimposed acute inflammatory versus infectious process in the right kidney cannot be excluded. Fleischner guidelines were followed. Electronically signed by: Matias Bolaños MD 04/01/2024 08:52 AM [facility]
[2024-04-01 03:42] VITALS: BP 168/79; PULSE 55; RESP 24; TEMP 36.6; O2SAT 100; BMI 26.5
[2024-04-01 03:59] LABS: Basophils Absolute Auto 0.1 X10*3/uL (0.0-0.2); Basophils Percent Auto 0.5 % (0-2); Eosinophils Absolute Auto 0.3 X10*3/uL (0.0-0.4); Hematocrit 39.6 % (42.0-52.0); Hemoglobin 14.4 g/dl (14.0-18.0); Imm Gran Abs Auto 0.03 X10*3/uL (0.00-0.03); Imm Gran Pct Auto 0.3 % (0.0-0.4); Lymphocytes Absolute Auto 2.7 X10*3/uL (1.2-4.9); Lymphocytes Percent Auto 28.3 % (20-40); MANUAL DIFF FLAG NO; Mean Corpuscular HGB Conc 36.4 g/dl (31.0-36.0); Mean Corpuscular Hemoglobin 30.8 pg (27.0-33.0); Mean Corpuscular Volume 84.8 fL (80.0-98.0); Mean Platelet Volume 9.3 fL (9.4-12.4); Neutrophils Absolute Auto 5.3 x10*3/uL (2.0-8.3); Neutrophils Percent Auto 56.9 % (45-73); Platelet Count 167 X10*3/uL (160-400); Red Blood Count 4.67 X10*6/uL (4.60-5.80); Red Cell Distribution Width 13.5 % (11.0-16.0); White Blood Count 9.4 X10*3/uL (4.8-10.8)
[2024-04-01 04:02] LABS: Appearance Urine Clear; Color Urine Straw; Glucose Urine UA Negative (Negative); Leukocyte Esterase Urine Trace (Negative); Nitrite Urine Negative (Negative); UMIC TRIGGER UACC YES; Urine Blood Large (3+) (Negative); Urine Ketones Negative (Negative); Urine Protein 30 (1+) mg/dL (Neg-Trace)
[2024-04-01 04:05] LABS: Bacteria Urine None Seen (None Seen); Hyaline Casts Urine 0-2 /LPF (0-2); RBC Urine >20 /HPF (0-2); Squamous Epithelial Cell Urine 0-2 /HPF (0-2); WBC Urine 0-5 /HPF (0-5)
[2024-04-01 04:15] LABS: Alanine Aminotransferase 39 U/L (0-40); Albumin Level 4.5 g/dL (3.5-5.0); Alkaline Phosphatase 73 U/L (39-117); Anion Gap 15 (12-20); Aspartate Amino Transferase 34 U/L (5-37); Bilirubin Total 0.4 mg/dL (0.0-1.0); Blood Urea Nitrogen 16 mg/dL (9-16); Calcium 9.4 mg/dL (8.4-10.2); Carbon Dioxide 26 mmol/L (22-29); Chloride 105 mmol/L (96-108); Creatinine Clr Calc Pharmacy 81.4; Estimated Glomerular Filt Rate > 60; Glucose Random 83 mg/dL (60-115); Sodium 142 mmol/L (135-145); Total Protein 7.1 g/dL (6.5-8.0)
[2024-04-01] MEDS: 0.9 % Sodium Chloride 1,000 ML 999 ML IV (04:21)
[2024-04-01] MEDS: ondansetron HCL 4 MG/2 ML VIAL IVPUSH (04:21)
[2024-04-01] MEDS: HYDROmorphone HCl 2 MG/ML VIAL IVPUSH (04:21)
--- NOTE | 2024-04-01 04:38 | ED_ITS ---
HPI - General Adult General Chief complaint: General Medical Stated complaint: kidney stones Time Seen by Provider: 04/01/24 04:10 Source: patient Mode of arrival: ambulatory Limitations: no limitations History of Present Illness ED Provider: HPI narrative: Patient's history of kidney stones status post ESWL on 03/18 4 right heel DU stone patient was doing well until last night when noticed pain in right abdominal front area associated with nausea and vomiting no fever no chills no gross hematuria Related Data Home Medications ?Medication ?Instructions ?Recorded ?Confirmed aspirin 81 mg tablet,delayed 81 mg PO DAILY 07/18/23 04/02/24 release glucosamine HCl 500 mg tablet 500 mg PO DAILY 08/06/23 04/02/24 ascorbic acid (vitamin C) 500 mg 500 mg PO DAILY 11/07/23 04/02/24 tablet cholecalciferol (vitamin D3) 25 25 mcg PO DAILY 11/07/23 04/02/24 mcg (1,000 unit) capsule Previous Rx's ?Medication ?Instructions ?Recorded naproxen 500 mg tablet 500 mg PO BID PRN pain 7 days #14 03/18/24 tabs tamsulosin 0.4 mg capsule 0.4 mg PO BEDTIME 14 days #14 caps 03/18/24 oxycodone 5 mg tablet 5 mg PO Q6H PRN pain #20 tabs 04/01/24 phenazopyridine 100 mg tablet 100 mg PO TID PRN Spasm 4 days #12 04/02/24 (Pyridium) tabs tamsulosin 0.4 mg capsule 0.4 mg PO BEDTIME 30 days #30 caps 04/02/24 Allergies Allergy/AdvReac Type Severity Reaction Status Date / Time Latex, Natural Rubber Allergy Severe Blister Verified 04/01/24 03:44 Fish Containing Products AdvReac Intermediate nausea Verified 04/01/24 03:44 Review of Systems 2 Review of Systems: Yes all other systems are reviewed and are negative [facility] Past Medical History Medical History (Updated 04/02/24 @ 00:01 by Jigar Chew) Anxiety Hypersomnia Snoring LLQ pain Gross hematuria Lower back pain (~01/2023) Renal calculi IBS (irritable bowel syndrome) Elevated cholesterol Chronic back pain Borderline diabetes Surgical History (Updated 04/02/24 @ 14:20 by Tonja Heath RN) History of umbilical hernia repair (05/16/21) Hx of colonoscopy (02/16/21) History of esophagogastroduodenoscopy (EGD) (02/16/21) Hx of lithotripsy H/O hernia repair History of laparotomy History of reconstruction of anterior cruciate ligament tear Family History Family History Maternal Uncle Skin cancer Other Mental health disorder Substance use disorder Social History Social History Housing: House Are you a primary home care specialist to a significant other at home: No Do you presently have visiting nurse or other home services: No Alcohol intake: former Patient Tobacco Use Status: Former Tobacco user Tobacco use type: Cigarette Years Smoked: 14 e-Cigarette/Vaping Use: Never Used Second Hand Smoke Exposure: No service: No Current occupational status: employed 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 Oriented X3. In moderate distress Eyes: PERRLA, No Nystagmus ENT: Pharynx normal. Oral Mucosa moist Neck: Normal inspection. Neck supple. CVS: Normal heart rate and rhythm. Pulses normal. Respiratory: No respiratory distress. Equal air entry bilateral, no wheezing/rales/rhonchi Abdomen: Soft and nontender. Bowel sounds are present, no mass palpable, right CVA tenderness Skin: Skin warm and dry. Normal skin color. Normal skin turgor. Extremities: No lower extremity edema. No calf tenderness Neuro: Oriented X 3. No motor deficit. No sensory deficit.No cerebellar signs , cranial nerves II-XII intact Medications Administered Discontinued Medications Generic Name Dose Route Start Last Admin Trade Name Freq PRN Reason Stop Dose Admin Hydromorphone HCl 2 mg 04/01/24 04:11 04/01/24 04:21 Hydromorphone Hcl 2 Mg/Ml Vial IVPUSH 04/01/24 04:12 2 mg ONCE ONE Administration Protocol Hydromorphone HCl 1 mg 04/01/24 06:42 04/01/24 07:00 Hydromorphone Hcl 1 Mg/Ml Syringe IVPUSH 04/01/24 06:43 1 mg ONCE ONE Administration Protocol Sodium Chloride 1,000 mls @ 999 mls/hr 04/01/24 04:11 04/01/24 05:02 Ns IV 04/01/24 05:11 Infused .Q1H1M ONE Infusion Ketorolac Tromethamine 30 mg 04/01/24 04:56 04/01/24 05:32 Ketorolac Tromethamine 30 Mg/Ml Vial IVPUSH 04/01/24 04:57 30 mg ONCE ONE Administration Morphine Sulfate 4 mg 04/01/24 04:50 04/01/24 04:59 Morphine Sulfate 4 Mg/Ml Cartridge IVPUSH 04/01/24 04:51 4 mg ONCE ONE Administration Protocol Ondansetron HCl 4 mg 04/01/24 04:11 04/01/24 04:21 Ondansetron Hcl 4 Mg/2 Ml Vial IVPUSH 04/01/24 04:12 4 mg ONCE ONE Administration Oxycodone HCl 10 mg 04/01/24 06:42 04/01/24 07:00 Oxycodone Hcl Immed Release 5 Mg Tablet PO 04/01/24 06:43 10 mg ONCE ONE Administration Tamsulosin HCl 0.4 mg 04/01/24 06:31 04/01/24 07:00 Tamsulosin Hcl 0.4 Mg Capsule PO 04/01/24 06:32 0.4 mg ONCE ONE Administration Medical Decision Making Differential Diagnosis Differential Diagnoses: The differential diagnosis associated with the presentation includes Renal colic/UTI/pyelonephritis Lab Data MDM Lab Attestation statement: I reviewed the patient's lab results. 04/01/24 03:54 04/01/24 03:54 Labs: Lab Results 04/01/24 Range/Units 03:54 WBC 9.4 (4.8-10.8) X10*3/uL RBC 4.67 (4.60-5.80) X10*6/uL Hgb 14.4 (14.0-18.0) g/dl Hct 39.6 L (42.0-52.0) % MCV 84.8 (80.0-98.0) fL MCH 30.8 (27.0-33.0) pg MCHC 36.4 H (31.0-36.0) g/dl RDW 13.5 (11.0-16.0) % Plt Count 167 (160-400) X10*3/uL MPV 9.3 L (9.4-12.4) fL Immature Gran % (Auto) 0.3 (0.0-0.4) % Neut % (Auto) 56.9 (45-73) % Lymph % (Auto) 28.3 (20-40) % Walton % (Auto) 11.0 (2-11) % Eos % (Auto) 3.0 (0-4) % Baso % (Auto) 0.5 (0-2) % Lymph # (Auto) 2.7 (1.2-4.9) X10*3/uL Walton # (Auto) 1.0 (0.1-1.2) X10*3/uL Eos # (Auto) 0.3 (0.0-0.4) X10*3/uL Baso # (Auto) 0.1 (0.0-0.2) X10*3/uL Abs Immat Gran (auto) 0.03 (0.00-0.03) X10*3/uL Absolute Neuts (auto) 5.3 (2.0-8.3) x10*3/uL Absolute Nucleated RBC 0.000 (0.0-0.012) X10*3/uL Nucleated RBC % (auto) 0.0 (0.0-0.2) /100WBC Sodium 142 (135-145) mmol/L Potassium 4.0 (3.3-5.1) mmol/L Chloride 105 (96-108) mmol/L Carbon Dioxide 26 (22-29) mmol/L Anion Gap 15 (12-20) BUN 16 (9-16) mg/dL Creatinine 1.07 (0.5-1.4) mg/dL Estim Creat Clear Calc 81.4 Estimated GFR > 60 Random Glucose 83 (60-115) mg/dL Calcium 9.4 (8.4-10.2) mg/dL Total Bilirubin 0.4 (0.0-1.0) mg/dL AST 34 (5-37) U/L ALT 39 (0-40) U/L Alkaline Phosphatase 73 (39-117) U/L Total Protein 7.1 (6.5-8.0) g/dL Albumin 4.5 (3.5-5.0) g/dL Urine Color Straw Urine Appearance Clear Urine pH 5.0 (5.0-9.0) Ur Specific [place] 1.010 (1.005-1.025) Urine Protein 30 (1+) H (Neg-Trace) mg/dL Urine Glucose (UA) Negative (Negative) mg/dL Urine Ketones Negative (Negative) mg/dL Urine Blood Large (3+) H (Negative) Urine Nitrite Negative (Negative) Ur Leukocyte Esterase Trace H (Negative) Urine RBC >20 H (0-2) /HPF Urine WBC 0-5 (0-5) /HPF Ur Squamous Epith Cells 0-2 (0-2) /HPF Urine Bacteria None Seen (None Seen) Hyaline Casts 0-2 (0-2) /LPF Independent Interpretation I performed an independent interpretation of an: CT Scan Interpretation: CT scan showed About 5 mm right proximal ureteric stone with hydronephrosis Discharge Plan Discharge Clinical Impression: Calculus of proximal right ureter Patient Disposition: Home, Self-Care Instructions: Ureteral Stones (ED) Additional Instructions: Drink plenty of fluids Take pain medication as prescribed Follow with your urologist today for further follow up Prescriptions: New oxycodone 5 mg tablet 5 mg PO Q6H PRN (Reason: pain) Qty: 20 0RF Rx Instructions: Partial Fill upon patient request. No Action tamsulosin 0.4 mg capsule 0.4 mg PO BEDTIME 14 Days Qty: 14 0RF naproxen 500 mg tablet 500 mg PO BID PRN (Reason: pain) 7 Days Qty: 14 0RF tamsulosin 0.4 mg capsule 0.4 mg PO BEDTIME 30 Days Qty: 30 1RF phenazopyridine [Pyridium] 100 mg tablet 100 mg PO TID PRN (Reason: Spasm) 4 Days Qty: 12 0RF cholecalciferol (vitamin D3) 25 mcg (1,000 unit) capsule 25 mcg PO DAILY ascorbic acid (vitamin C) 500 mg tablet 500 mg PO DAILY glucosamine HCl 500 mg tablet 500 mg PO DAILY Rx Instructions: administer with a meal aspirin 81 mg tablet,delayed release (DR/EC) 81 mg PO DAILY Referrals: Bill Garrison MD [Physician] - 1 day Interventions: ED Discharge Assessment Last Done: 04/01/24 07:09 Discharge Date/Time: 04/01/24 07:10 Print Language: Slovenian
[2024-04-01] MEDS: Morphine Sulfate 4 MG/ML CARTRIDGE IVPUSH (04:59)
[2024-04-01] MEDS: Ketorolac Tromethamine 30 MG/ML VIAL IVPUSH (05:32)
[2024-04-01 06:17] VITALS: BP 161/70; PULSE 68; RESP 16; TEMP 36.8; O2SAT 97
[2024-04-01] MEDS: oxyCODONE HCl Immed Release 5 MG TABLET 10 MG PO (07:00)
[2024-04-01] MEDS: HYDROmorphone HCl 1 MG/ML SYRINGE IVPUSH (07:00)
[2024-04-01] MEDS: Tamsulosin HCL 0.4 MG CAPSULE PO (07:00)
[2024-04-01 07:09] VITALS: BP 161/70; PULSE 68; RESP 16; TEMP 36.8; O2SAT 97
== END 2024-04-01 07:10 | disposition home or self-care (01) ==
PROVIDERS: Emergency Provider Internal Medicine; PCP Family Medicine
DX: N13.2 Hydronephrosis with renal and ureteral calculous obstruction (principal); R11.2 Nausea with vomiting, unspecified; E11.9 Type 2 diabetes mellitus without complications; E78.5 Hyperlipidemia, unspecified; Z87.891 Personal history of nicotine dependence; Z79.82 Long term (current) use of aspirin; Z79.899 Other long term (current) drug therapy
CPT/HCPCS: 36415; 74176; 80053; 81001; 85025; 96361; 96374; 96375; 96376; 99285; J1171; J1885; J2270; J2405

== ENCOUNTER → 2024-04-01 04:39 | Outpatient (BNV) | payer OTHER, SELFPAY | PROVIDERS: Emergency Provider Internal Medicine; PCP Family Medicine; Visit Provider Radiology Diagnostic Radiology | DX: N13.30 Unspecified hydronephrosis (principal) | CPT/HCPCS: 74176 ==

== ENCOUNTER 2024-04-02 13:59 | Day surgery (SDC) | payer OTHER, SELFPAY ==
[2024-04-02 14:21] VITALS: BMI 26.4
[2024-04-02 14:26] VITALS: BP 140/61; PULSE 66; RESP 16; TEMP 37.2; O2SAT 96
--- NOTE | 2024-04-02 14:54 | P.CONAN_ITS ---
HPI - Anesthesia Eval Consult details Narrative: 53 yo M presenting for cystoscopy, ureteroscopy, retro, laser with stent on the right. PMF Active Problems Active Problems: All Active Problems Tooth pain (Acute) Screening for STD (sexually transmitted disease) (Acute) Encounter for general adult medical examination without abnormal findings (Acute) Pain of molar (Acute) Calf cramp (Acute) Cervicalgia (Acute) Hematuria (Acute) Right foot pain (Acute) HSV-1 (herpes simplex virus 1) infection (Acute) URI (upper respiratory infection) (Acute) Depression with anxiety (Acute) Pre-diabetes (Acute) Sleep apnea (Acute) Nasal congestion (Acute) Adult general medical exam (Acute) Screening for prostate cancer (Acute) Back pain (Acute) Tooth abscess (Acute) Left ear pain (Acute) Abrasion of left arm (Acute) Sore throat (viral) (Acute) Strep pharyngitis (Acute) Upper back pain (Acute) Cervical radiculopathy (Acute) Low HDL (under 40) (Acute) Muscle strain of right upper back (Acute) Anxiety (Acute) Hyperlipidemia (Acute) Elevated fasting blood sugar (Acute) Umbilical hernia (Acute) IBS (irritable bowel syndrome) (Acute) Skin tag (Acute) Mixed hyperlipidemia (Acute) Earache (Acute) Tendonitis of shoulder, right (Acute) Painful arc syndrome of right shoulder (Acute) Biceps tendinitis of right shoulder (Acute) Dizziness (Acute) Exposure to COVID-19 virus (Acute) Muscle spasm (Acute) Screening for colon cancer (Acute) Abdominal pain (Acute) Bloating (Acute) Right shoulder pain (Acute) Neoplasm of uncertain behavior (Acute) Cough (Acute) Elevated blood pressure reading (Acute) Right shoulder pain (Acute) Acute meniscal tear of right knee (Acute) Tear of medial collateral ligament of knee (Acute) Medial collateral ligament sprain of knee (Acute) Right knee pain (Acute) Laboratory examination ordered as part of a routine general medical examination (Acute) Exposure to COVID-19 virus (Acute) Pressure sensation in left ear (Acute) Hypersomnia (Acute) Snoring (Acute) Renal calculi (Acute) LLQ pain (Acute) Gross hematuria (Acute) Lower back pain (Acute ~01/2023) H/O hernia repair (Acute) History of laparotomy (Acute) Chronic back pain (Acute) Borderline diabetes (Acute) Past Medical History Medical History (Updated 04/02/24 @ 00:01 by Jigar Chew) Anxiety Hypersomnia Snoring LLQ pain Gross hematuria Lower back pain (~01/2023) Renal calculi IBS (irritable bowel syndrome) Elevated cholesterol Chronic back pain Borderline diabetes Family History Family History Maternal Uncle Skin cancer Other Mental health disorder Substance use disorder Family history of problems with anesthesia: No Surgical History Surgical History (Updated 04/02/24 @ 14:20 by Tonja Heath RN) History of umbilical hernia repair (05/16/21) Hx of colonoscopy (02/16/21) History of esophagogastroduodenoscopy (EGD) (02/16/21) Hx of lithotripsy H/O hernia repair History of laparotomy History of reconstruction of anterior cruciate ligament tear History of Problems with Anesthesia: No Social History Social History Housing: House Are you a primary career development counselor to a significant other at home: No Do you presently have visiting nurse or other home services: No Alcohol intake: former Patient Tobacco Use Status: Former Tobacco user Tobacco use type: Cigarette Years Smoked: 14 Smoked in Last 30 Days: No e-Cigarette/Vaping Use: Never Used Second Hand Smoke Exposure: No Use of substances other than those prescribed or required for medical reasons: No Have you been hit, kicked, punched, or otherwise hurt by someone within the past year? 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 Current occupational exposures/hazards: No Cognitive needs: No Hearing needs: No Vision needs: No Meds Allergies Allergy/AdvReac Type Severity Reaction Status Date / Time Latex, Natural Rubber Allergy Severe Blister Verified 04/01/24 03:44 Fish Containing Products AdvReac Intermediate nausea Verified 04/01/24 03:44 Home Medications ?Medication ?Instructions ?Recorded ?Confirmed ?Last Taken ?Type aspirin 81 mg tablet,delayed 81 mg PO DAILY 07/18/23 04/02/24 02/19/24 History release glucosamine HCl 500 mg tablet 500 mg PO DAILY 08/06/23 04/02/24 Unknown History ascorbic acid (vitamin C) 500 mg 500 mg PO DAILY 11/07/23 04/02/24 Unknown History tablet cholecalciferol (vitamin D3) 25 25 mcg PO DAILY 11/07/23 04/02/24 Unknown History mcg (1,000 unit) capsule Exam Exam Date and Time: 04/02/24 1455 Height,Weight and Vital Signs: Height 5 ft 10 in Weight 83.461 kg Last Vital Signs Temp 99.0 F 04/02/24 14:26 Pulse 66 04/02/24 14:26 Resp 16 04/02/24 14:26 BP 140/61 H 04/02/24 14:26 Pulse Ox 96 04/02/24 14:26 O2 Del Method Room Air 04/02/24 14:26 Airway Mallampati Class: I TM Dist: >3cm Neck ROM: Full Loose/Missing/Broken Teeth: No (patient denies any loose or broken teeth) Heart: S1S2 Lungs: CTAB Assessment and Plan Assessment Anesthesia Assessment: Anesthesia Plan Discussed and Chart Reviewed Final Anesthetic Review Family History of Problems with Anesthesia: No History of Problems with Anesthesia: No NPO: Yes ASA Class: II Final Preanesthetic Review: No Changes in Pt Med Stat, Meds/Allgs Chart Reviewed, Consent Obtained/Reviewed and Anes Risks/Benef Reviewed Patient Risk: Low Procedure Risk: Low Anesthetic Plan Anesthetic Plan: GA and Agree w/ Assess. and Plan Disposition: Standard PACU
--- NOTE | 2024-04-02 15:49 | MHC.SHP ---
Pre-Procedural Eval Section A - 24 Hr Update-Section A only Date of Service: 04/02/24 The patient is an INPATIENT: No Changes since office visit: No Cold of Flu in the past 2 weeks, No New Medical Problems, No Changes in Medication and No Patient answered all questions The patient has been examined within 24 hours of the surgical procedure. The History & Physical has been completed within 30 days and I have reviewed it.: No Section B - Complete if H&P > 30 days Chief Complaint: Hydronephrosis with renal and ureteral calculous Details of Present Illness: Underwent right ESWL approximately 2 weeks ago. Presented through emergency room yesterday and found to have distal right ureteric stones with proximal hydronephrosis. Stones have not passed. Presents today for cystoscopy, right retrograde, right ureteroscopy with laser lithotripsy and stent placement Relevant Family History (Specify if Yes): No Relevant Social History: None Present Medications: see Short Stay Collaborative assessment Medical History: No relevant PMH History of Previous Operations: Relevant previous surgery/procedure and date(s) Allergies: Allergies Allergy/AdvReac Type Severity Reaction Status Date / Time Latex, Natural Rubber Allergy Severe Blister Verified 04/01/24 03:44 Fish Containing Products AdvReac Intermediate nausea Verified 04/01/24 03:44 Review of Systems Sugical H&P ROS: Negative: Constitution, Cardiovascular, Respiratory, Neurological, Psychiatric, Hem-Onc, Allergic/Immunologic, Gastrointestinal, Genitourinary, Musculoskeletal, Integumentary, Endocrine and Eyes/Ears/Nose/Throat Exam Surgical H&P Exam: Normal: HEENT, Normal: Heart, Normal: Lungs, Normal: Extremities, Normal: Abdomen, Normal: Skin and Normal: Neurological Plan Diagnosis/Plan: Unchanged (Cystoscopy, right retrograde, right ureteroscopy with laser lithotripsy and stent placement) I have reviewed the history and physical and performed a pertinent physical examination on my patient. No changes have occurred unless specified. Time Spent With Patient Time: Total time managing care of this patient today ____ minutes.
--- NOTE | 2024-04-02 16:30 | P.OP_ITS ---
Operative Note Operative Note Date of Service: 04/02/24 Narrative: PreOperative Diagnosis: Mid and distal right ureteric stones Post Operative Diagnosis: Mid and distal right ureteric stone Procedure: - cystoscopy, right retrograde - right dilatation of ureteric orifice under fluoroscopy - right ureteroscopy, stone basketing - right stent placement Surgeon: Dr Bill Garrison Anesthesia: General Indications for procedure: Right ESWL 2 weeks ago. Presented to emergency room yesterday with right flank pain. Imaging showed mid and distal right ureteric stones. Here for procedure Procedure: After informed consent was verified the patient was brought to the operating room and placed in a supine position. Anesthesia was administered per protocol. The patient was placed in a modified dorsal lithotomy position and prepped and draped in a sterile fashion. Safety pause time-out and side of surgery were confirmed. Images were available for review. Antibiotic administration confirmed. A 22 Armenian cystoscope was inserted per urethra. The urethra was without abnormality. The bladder was normal in its entirety. Both ureteric orifices were seen in normal position. The right ureteric orifice was cannulated and a retrograde examination was performed. Filling defects seen distal and mid . A Sensor guidewire was placed up to the level of the renal pelvis under fluoroscopy. Once the sensor wire was placed there was extrusion of fluid suggestive of partial blockage on right side The rigid cystoscope was removed. A Ann dilator was placed over the Sensor guidewire and used to dilate the ureteric orifice under fluoroscopy. The dilator was removed. The semi rigid ureteral scope was placed alongside the Sensor guidewire. Stones were encountered. They were small. Using a 2.4 Armenian ZeroTip basket the 1st few fragments were removed. These were sent for analysis. Secondary stone encountered at the crossing of the pelvic brim. Attempt made at lasering however we were not able to advance the scope far enough to contact the stone. A decision made to place a stent which should allow dilatation and the stone to fall. Based on the height of the patient a 6 Fr x 28 cm stent was used. The string was removed from the stent prior to placement. The rigid cystoscope was backloaded over the wire and advanced into the bladder. A 6 Armenian by 28 cm double-J stent was placed into the renal pelvis and bladder under a combination of fluoroscopy and direct visualization. Proximal positioning of the stent was confirmed using fluoroscopy. The bladder was emptied. The patient tolerated the procedure well and was extubated in the operating room. They were transferred in stable condition to the recovery area. Pathology: stones Drains: Double J stent as described above
[2024-04-02 16:39] VITALS: BP 121/53; PULSE 67; RESP 10; TEMP 36.8; O2SAT 96
[2024-04-02 16:44] VITALS: BP 111/54; PULSE 62; RESP 10; O2SAT 98
[2024-04-02 16:49] VITALS: BP 112/54; PULSE 62; RESP 12; O2SAT 95
[2024-04-02 16:54] VITALS: BP 139/68; PULSE 71; RESP 14; O2SAT 95
[2024-04-02 17:09] VITALS: BP 142/74; PULSE 77; RESP 16; TEMP 36.8; O2SAT 94
== END 2024-04-02 17:21 | disposition home or self-care (01) ==
PROVIDERS: PCP Family Medicine; Visit Provider Urology
PROC: (CPT 52352; principal; 2024-04-02 16:00)
DX: N13.30 Unspecified hydronephrosis (principal); N20.1 Calculus of ureter; R31.9 Hematuria, unspecified; Z87.442 Personal history of urinary calculi; R73.03 Prediabetes; E78.00 Pure hypercholesterolemia, unspecified; K58.9 Irritable bowel syndrome, unspecified; G89.29 Other chronic pain; M54.50 Low back pain, unspecified; G47.10 Hypersomnia, unspecified; Z79.82 Long term (current) use of aspirin; G47.33 Obstructive sleep apnea (adult) (pediatric); Z79.899 Other long term (current) drug therapy; Z91.040 Latex allergy status; Z87.891 Personal history of nicotine dependence
CPT/HCPCS: 52352; 52332; 82365; 88300; C1758; C1769; C2617; J0131; J1100; J1885; J1956; J2003; J2250; J2405; J2704; J3010; Q9967

== ENCOUNTER → 2024-04-02 13:59 | Outpatient (BNV) | payer OTHER, SELFPAY | PROVIDERS: PCP Family Medicine; Visit Provider Urology | DX: N20.1 Calculus of ureter (principal) | CPT/HCPCS: 52332; 52352; 74420 ==

== ENCOUNTER 2024-04-06 10:26 | Outpatient (REF) | payer OTHER, SELFPAY | END 2024-04-06 10:27 | disposition home or self-care (01) | LOC: HO.US 10:26 | PROVIDERS: PCP Family Medicine; Visit Provider Urology | DX: N20.0 Calculus of kidney (principal) | CPT/HCPCS: 76775 ==

== ENCOUNTER 2024-04-09 14:00 | Outpatient (AMB) | payer OTHER, SELFPAY ==
--- NOTE | 2024-04-09 14:02 | MHC.OFFVIS ---
Intake Visit Reasons: Stent removal Intake Note: Patient is present for STENT REMOVAL Urology Medication:TAMSULOSIN Antibiotic Allergy:NONE Blood Thinner:ASPIRIN Lot:[id number] Exp:03/02/27 Tufting Creeler Required: No Allergies Latex, Natural Rubber Allergy (Severe, Verified 04/09/24 14:03) Blister Fish Containing Products Adverse Reaction (Intermediate, Verified 04/09/24 14:03) nausea HPI Comments Details: Teddy is a pleasant male. He is a patient of Dr. Archuleta. He is seen for following urologic conditions - hematuria with UTI - nephrolithiasis Here for stent removal Underwent right ESWL recently and developed stone debris Ureteroscopy performed with removal and stent placement Nephrolithiasis Recurrent Interventions - 03/22 right ureteroscopy with stone basketing UTI today Three-month follow-up ultrasound [facility] Medical History (Updated 04/02/24 @ 00:01 by Jigar Chew) Anxiety Hypersomnia Snoring LLQ pain Gross hematuria Lower back pain (~01/2023) Renal calculi IBS (irritable bowel syndrome) Elevated cholesterol Chronic back pain Borderline diabetes Surgical History (Updated 04/02/24 @ 14:20 by Tonja Heath RN) History of umbilical hernia repair (05/16/21) Hx of colonoscopy (02/16/21) History of esophagogastroduodenoscopy (EGD) (02/16/21) Hx of lithotripsy H/O hernia repair History of laparotomy History of reconstruction of anterior cruciate ligament tear Family History Maternal Uncle Skin cancer Other Mental health disorder Substance use disorder Social History Housing: House Are you a primary lead caregiver to a significant other at home: No Do you presently have visiting nurse or other home services: No Alcohol intake: former Patient Tobacco Use Status: Former Tobacco user Tobacco use type: Cigarette Years Smoked: 14 e-Cigarette/Vaping Use: Never Used Second Hand Smoke Exposure: No service: No Current occupational status: employed 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 Current occupational exposures/hazards: No Cognitive needs: No Hearing needs: No Vision needs: No Review of Systems Const Denies chills and Denies fever(s) Card Reports no additional complaints and Denies syncope Resp Denies cough GI Denies abdominal pain and Denies heartburn Reports as per HPI and Denies change in libido Neuro Denies syncope Psych Denies change in libido Endo Denies change in libido Physical Exam Const General: cooperative, healthy appearing, comfortable and no acute distress Orientation/consciousness: patient oriented x3 HEENT Face and sinus: Yes normal facial exam Mouth: moist mucous membranes Neck Neck: Yes normal visual inspection, Yes full ROM and Yes trachea midline Chest Chest palpation & inspection: normal inspection of the chest Resp Effort & Inspection: normal respiratory effort, able to speak in complete sentences and no respiratory distress GI Inspection: Yes normal to inspection Back/Spine/Pelvis Cervical Spine: normal cervical lordosis Thoracic/Lumbar Spine: thoracic and lumbar spine normal to inspection Skin General skin exam: no rashes or lesions noted Neuro General: patient oriented x3, gait normal, tone normal and moves all extremities Extrem General: Yes normal to inspection and Yes capillary refill normal Office Procedures Cystoscopy Consent Discussed risk and benefit or proposed procedure with the patient. Information consent for procedure given to the patient. Discussed technical aspects, risks, benefits and alternatives in full. Addressed all of the patient's questions and concerns regarding the procedure. The patient demonstrated knowledge and understanding. They wish to proceed with this procedure. Preparation The patient was prepped in the usual manner. A life cycle assessment analyst was present and in the room. Genitalia was prepped with betadine solution in a sterile manner. Lidocaine Jelly 2% was placed into the urethra and 16Fr flexible Olympus cystoscope was inserted into the meatus after adequate lubrication. Procedure A well lubricated 16 Italian cystoscope was placed No abnormality noted of urethra during placement Indwelling stent seen within bladder emerging from right ureteric orifices The stent was grasped with a 3 prong grasper and removed without difficulty The patient tolerated the procedure well [id number] with stent removal DISPOSABLE SCOPE URO-G FLEXIBLE SCOPE Procedure code (CPT) selection complete Office Meds lidocaine HCl 2 % mucosal jelly in applicator Performing Provider: Bill Garrison MD [facility] Administered by: Bill Garrison MD on 04/09/24 15:22 Dose Route Admin Location Dispensed Lot Number Expiration Date [facility] Brush Material Preparer 10 mL intra-urethral 10 mL Results AMB Urinalysis, Automated UA Leukoctes 125 Maurilio/uL Last Edit by SANTIAGO Hall on 04/09/24 14:19 UA Nitrite Negative Last Edit by Ashlee Wilks [facility] on 04/09/24 14:19 UA Urobilinogen 0.2 mg/dL Last Edit by Ashlee Wilks [facility] on 04/09/24 14:19 UA Protein 30 mg/dL Last Edit by Ashlee Wilks [facility] on 04/09/24 14:19 UA pH 5.5 Last Edit by Ashlee Wilks [facility] on 04/09/24 14:19 UA Blood 200 Kip/uL Last Edit by Ashlee Wilks [facility] on 04/09/24 14:19 UA Specific [place] 1.025 Last Edit by Ashlee Wilks [facility] on 04/09/24 14:19 UA Ketone Negative Last Edit by Ashlee Wilks [facility] on 04/09/24 14:19 UA Bilirubin 0 mg/dL Last Edit by Ashlee Wilks [facility] on 04/09/24 14:19 UA Glucose 0 mg/dL Last Edit by Ashlee Wilks [facility] on 04/09/24 14:19 Results Reviewed Results Reviewed: Laboratory Last Values Urine pH (Auto) 5.5 04/09/24 14:19 Specific [place] (Auto) 1.025 04/09/24 14:19 Urine Protein (Auto) 30 mg/dL 04/09/24 14:19 Glucose (UA)(Auto) 0 mg/dL 04/09/24 14:19 Urine Ketones (Auto) Negative 04/09/24 14:19 Urine Blood (Auto) 200 Kip/uL 04/09/24 14:19 Urine Nitrite (Auto) Negative 04/09/24 14:19 Urine Bilirubin (Auto) 0 mg/dL 04/09/24 14:19 Urine Urobilinogen (Auto) 0.2 mg/dL 04/09/24 14:19 Leukocyte Esterase (Auto) 125 Maurilio/uL 04/09/24 14:19 Assessment & Plan Assessment & Plan (1) Renal calculi: Code(s): N20.0 - Calculus of kidney Category: Medical Plan Three-month follow-up renal ultrasound Treat UTI Orders: Orders AMB Urinalysis Automated Today Z13.9 - Encounter for screening, unspecified US renal BI 3 Months N20.0 - Calculus of kidney AMB Cystoscopy Today N20.0 - Calculus of kidney Medications: New levofloxacin 500 mg PO DAILY 5 days 5 tabs 0RF N20.0 - Calculus of kidney, N39.0 - Urinary tract infection, site not specified Patient Instructions: Imaging studies, laboratory and physical exam results were discussed and reviewed in detail. No major barriers to patient understanding were identified. An opportunity to ask questions regarding the treatment plan was provided. All questions were answered. The patient expressed understanding and agreement with the above treatment plan. The patient is aware they should contact our office by phone for worsening of their current condition or the appearance of new urologic symptoms. Compliance is encouraged with any medications and followup testing that is ordered. It is a privilege to participate in the urologic care of your patient. If you have any questions or concerns regarding treatment for the above conditions, or other urologic issues, please do not hesitate to contact me. The office telephone contact is [phone]. This note is constructed using voice recognition software. While every effort has been made to ensure accuracy surgical instrument mechanic errors may have been included. Yours sincerely, Dr Bill Garrison MD, [facility] - Urology Providers of Expert, Compassionate Care for the Genitourinary System Coding Level of Care Code Est Pt Level 3 (51934) Diagnoses Renal calculi N20.0 CPT Codes Cystoscopy - CPT: 05543-[id number] with stent removal ([id number])
== END 2024-04-09 15:00 | disposition home or self-care (01) ==
PROVIDERS: PCP Family Medicine; Visit Provider Urology
DX: N20.0 Calculus of kidney (principal); Z96.0 Presence of urogenital implants; Z13.9 Encounter for screening, unspecified
CPT/HCPCS: 52310; 99024

== ENCOUNTER → 2024-04-09 14:00 | Outpatient (BNVA) | payer OTHER, SELFPAY | PROVIDERS: PCP Family Medicine; Visit Provider Urology | DX: N20.0 Calculus of kidney (principal); Z46.6 Encounter for fitting and adjustment of urinary device | CPT/HCPCS: 52310; 81003 ==

== ENCOUNTER 2024-07-08 14:50 | Outpatient (REF) | payer OTHER, SELFPAY ==
--- NOTE | ~2024-07-08 | US_ITS ---
CLINICAL HISTORY: N20.0 - Calculus of kidney US renal with Color Doppler Comparison: US/MO/SR - US RENAL BI - 04/06/24 10:47 EST US/MO/SR - US RENAL BI - 02/05/24 10:17 EDT US - ABDOMEN ULTRASOUND [id number] - 08/16/16 09:58 EDT Findings: Right kidney normal size and echotexture, 11.9 cm length. No hydronephrosis. Nonobstructing caliceal stone lower pole measuring 2 x 3 x 2 mm previously measuring 8 mm. Normal color flow. Renal cortical cyst upper pole measuring 6 x 5 x 5 mm. Previously measuring 9 x 7 x 8 mm Left kidney normal size and echotexture, 10.4 cm length. No hydronephrosis calculus or mass. Normal color flow. Impression: 1. Renal cortical cyst and nephrolithiasis on the right This document has been electronically signed by: Henrry Almaraz MD on 07/09/2024 09:04:28
== END 2024-07-08 14:51 | disposition home or self-care (01) ==
LOC: HO.US 14:50
PROVIDERS: PCP Family Medicine; Visit Provider Urology
DX: N20.0 Calculus of kidney (principal)
CPT/HCPCS: 76775

== ENCOUNTER → 2024-07-08 14:52 | Outpatient (BNV) | payer OTHER, SELFPAY | PROVIDERS: PCP Family Medicine; Visit Provider Radiology Diagnostic Radiology | DX: N20.0 Calculus of kidney (principal) | CPT/HCPCS: 76775 ==

== ENCOUNTER 2024-07-17 14:41 | Outpatient (AMB) | payer OTHER, SELFPAY ==
--- NOTE | 2024-07-17 14:43 | A.OFFVIS_ITS ---
Intake Visit Reasons: 3m/ US Intake Note: Pt presents to the office today for a 3 month follow up/US. Allergies Latex, Natural Rubber Allergy (Severe, Verified 07/17/24 14:43) Blister Fish Containing Products Adverse Reaction (Intermediate, Verified 07/17/24 14:43) nausea HPI Comments Details: Teddy is a pleasant male. He is a patient of Dr. Archuleta. He is seen for following urologic conditions - hematuria with UTI - nephrolithiasis Discussed stone findings Composition and small residual on imaging Start vitamin B6 Increase fluids Recommend decrease salt intake Nephrolithiasis Recurrent Interventions - 03/22 right ureteroscopy with stone basketing Composition - calcium oxalate monohydrate 80% Imaging - Nonobstructing caliceal stone lower pole measuring 2 x 3 x 2 mm previously measuring 8 mm. Left kidney No hydronephrosis calculus or mass. Normal color flow [facility] Medical History Anxiety Hypersomnia Snoring LLQ pain Gross hematuria Lower back pain (~01/2023) Renal calculi IBS (irritable bowel syndrome) Elevated cholesterol Chronic back pain Borderline diabetes Surgical History History of umbilical hernia repair (05/16/21) Hx of colonoscopy (02/16/21) History of esophagogastroduodenoscopy (EGD) (02/16/21) Hx of lithotripsy H/O hernia repair History of laparotomy History of reconstruction of anterior cruciate ligament tear Family History Maternal Uncle Skin cancer Other Mental health disorder Substance use disorder Social History Housing: House Are you a primary physician primary care sports medicine to a significant other at home: No Do you presently have visiting nurse or other home services: No Alcohol intake: former Patient Tobacco Use Status: Former Tobacco user Tobacco use type: Cigarette Years Smoked: 14 e-Cigarette/Vaping Use: Never Used Second Hand Smoke Exposure: No service: No Current occupational status: employed 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 Current occupational exposures/hazards: No Cognitive needs: No Hearing needs: No Vision needs: No Review of Systems Const Denies chills and Denies fever(s) Card Reports no additional complaints and Denies syncope Resp Denies cough GI Denies abdominal pain and Denies heartburn Reports as per HPI and Denies change in libido Neuro Denies syncope Psych Denies change in libido Endo Denies change in libido Physical Exam Const General: cooperative, healthy appearing, comfortable and no acute distress Orientation/consciousness: patient oriented x3 HEENT Face and sinus: Yes normal facial exam Mouth: moist mucous membranes Neck Neck: Yes normal visual inspection, Yes full ROM and Yes trachea midline Chest Chest palpation & inspection: normal inspection of the chest Resp Effort & Inspection: normal respiratory effort, able to speak in complete sentences and no respiratory distress GI Inspection: Yes normal to inspection Back/Spine/Pelvis Cervical Spine: normal cervical lordosis Thoracic/Lumbar Spine: thoracic and lumbar spine normal to inspection Skin General skin exam: no rashes or lesions noted Neuro General: patient oriented x3, gait normal, tone normal and moves all extremities Extrem General: Yes normal to inspection and Yes capillary refill normal Assessment & Plan Assessment & Plan (1) Renal calculi: Code(s): N20.0 - Calculus of kidney Category: Medical Plan Six-month follow-up renal ultrasound Orders: Orders US renal BI 6 Months N20.0 - Calculus of kidney Medications: New pyridoxine (vitamin B6) 50 mg PO DAILY 90 tabs 1RF 90 days N20.0 - Calculus of kidney Patient Instructions: This note is constructed using voice recognition software. While every effort has been made to ensure accuracy scoop driver errors may have been included. Imaging studies, laboratory and physical exam results were discussed and reviewed in detail. No major barriers to patient understanding were identified. An opportunity to ask questions regarding the treatment plan was provided. All questions were answered. The patient expressed understanding and agreement with the above treatment plan. The patient is aware they should contact our office by phone for worsening of their current condition or the appearance of new urologic symptoms. Compliance is encouraged with any medications and followup testing that is ordered. It is a privilege to participate in the urologic care of your patient. If you have any questions or concerns regarding treatment for the above conditions, or other urologic issues, please do not hesitate to contact me. The office telephone contact is [phone]. Sincerely, Dr Bill Garrison MD, [facility] - Urology Compassionate Specialist Care for the Genitourinary System Coding Level of Care Code Est Pt Level 3 (14345) Diagnoses Renal calculi N20.0
== END 2024-07-17 15:07 | disposition home or self-care (01) ==
LOC: HO.HUSH 14:41
PROVIDERS: PCP Family Medicine; Visit Provider Urology
DX: N20.0 Calculus of kidney (principal)
CPT/HCPCS: 99213

== ENCOUNTER → 2024-07-17 14:41 | Outpatient (BNVA) | payer OTHER, SELFPAY | PROVIDERS: PCP Family Medicine; Visit Provider Urology ==

== ENCOUNTER 2024-11-12 10:00 | Outpatient (AMB) | payer OTHER, SELFPAY ==
--- NOTE | 2024-11-12 10:10 | MHC.PC.OV ---
Vital Signs 11/12/24 10:16 Height 5 ft 9 in Weight 170 lb 2 oz BMI 25.1 BP 122/71 Blood Pressure Location Rt brachial Position Sitting Respiration 16 Pulse 47 L Pulse Source Palpation Temp 98.0 F Temp Source Oral Pulse Oximetry (%) 98 Oxygen Delivery Method Room Air Intake Visit Reasons: Neck Pain Intake Note: patient here c/o neck pain he can not turn his neck all the way to the right, he is in pain. Leaf Conditioner Required: No Allergies Latex, Natural Rubber Allergy (Severe, Verified 11/12/24 10:14) Blister Fish Containing Products Adverse Reaction (Intermediate, Verified 11/12/24 10:14) nausea Medication List - Last Reconciled 11/12/24 by Hector Archuleta MD ascorbic acid (vitamin C) 500 mg PO DAILY cholecalciferol (vitamin D3) 25 mcg PO DAILY glucosamine HCl 500 mg PO DAILY pyridoxine (vitamin B6) 50 mg PO DAILY 90 days Tobacco use date assessed: 11/12/24 Dental Screening Dental Screen Date: 11/12/24 Did you have a dental visit in the last 12 months?: Yes Did you have a dental problem in the last 6 months where you did not have access to dental care?: No Was dental information given to patient?: Patient has dentist HPI Neck Pain HPI Details 54 y/o male presents today with complaints of neck pain. Pt notes he started experiencing neck pain after trying a new set of pillows. Pt has lost about 15 lbs since last office visit. Has been keeping himself active. PHQ-9 10, LESLY-7 7 today. Pt notes pain worsens his mood. [facility] Medical History Anxiety Hypersomnia Snoring LLQ pain Gross hematuria Lower back pain (~01/2023) Renal calculi IBS (irritable bowel syndrome) Elevated cholesterol Chronic back pain Borderline diabetes Surgical History History of umbilical hernia repair (05/16/21) Hx of colonoscopy (02/16/21) History of esophagogastroduodenoscopy (EGD) (02/16/21) Hx of lithotripsy H/O hernia repair History of laparotomy History of reconstruction of anterior cruciate ligament tear Family History Maternal Uncle Skin cancer Other Mental health disorder Substance use disorder Social History Housing: House Are you a primary health care legal assistant to a significant other at home: No Do you presently have visiting nurse or other home services: No Alcohol intake: former Patient Tobacco Use Status: Former Tobacco user Tobacco use type: Cigarette Years Smoked: 14 e-Cigarette/Vaping Use: Never Used Second Hand Smoke Exposure: No service: No Current occupational status: employed 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 1. Little interest or pleasure in doing things: several days 2. Feeling down, depressed, or hopeless: several days 3. Trouble falling or staying asleep, or sleeping too much: nearly every day 4. Feeling tired or having little energy: nearly every day 5. Poor appetite or overeating: several days 6. Feeling bad about yourself - or that you are a failure or have let yourself or your family down: not at all 7. Trouble concentrating on things, such as reading the newspaper or watching television: several days 8. Moving or speaking so slowly that other people could have noticed. Or the opposite - being so fidgety or restless that you have been moving around a lot more than usual: not at all 9. Thoughts that you would be better off or of hurting yourself in some way: not at all Total score: 10 Depression Screening Interpretation: Positive Depression Screening Follow-up: Declines treatment Depression Screening Done: Yes Source: Developed by Drs. Dylan Carr, Esperanza Adames, Avery Chin and colleagues, with an educational jessica from [employer]. Thrive Questionnaire Date Thrive assessed: 11/05/24 I am a: Patient What is your living situation today?: I have a steady place to live Within the past 12 months, did the food you bought not last and you didn't have the money to get more?: Never true Within the past 12 months, did you worry whether your food would run out before you got money to buy more?: Never true Do you have trouble paying for medicines?: No Do you have trouble getting transportation to medical appointments?: No Do you have trouble paying your heating and electricity bill?: No Do you have trouble taking care of your child, family member or friend?: No Do you have trouble with day-to-day activities such as bathing, preparing meals, shopping, managing finances, etc.?: No Are you currently unemployed and looking for a job?: No Are you interested in more education?: Yes Please select the resources that you would like help with: None Currently or been in a relationship where the following occur: No concerns reported THRIVE Score: 0 AUDIT C Alcohol Use Questionnaire (AUDIT-C) 1. How often do you have a drink containing alcohol?: Never Total Score: 0 LESLY-7 AMB Questionnaire LESLY-7 Date LESLY - 7 assessed: 11/07/23 Feeling nervous, anxious, or on edge: 1 = Several days Not being able to stop or control worryin = Several days Worrying too much about different things: 1 = Several days Trouble relaxin = Several days Being so restless that it is hard to sit still: 1 = Several days Becoming easily annoyed or irritable: 1 = Several days Feeling afraid as if something awful might happen: 1 = Several days Total LESLY-7 score (0-4 normal; 5-9 mild; 10-14 moderate; 15-21 severe): 7 Source: Developed by Drs. Dylan Carr, Esperanza Adames, Avery Chin and colleagues, with an educational jessica from [employer]. Review of Systems Const Denies chills, Denies fatigue, Denies fever(s), Denies headache(s) and Denies weakness ENT Denies dizziness and Denies headache(s) Card Denies dyspnea Resp Denies cough, Denies dyspnea, Denies wheezing and Denies other (shortness of breath) Musc Denies numbness and Denies tingling Neuro Denies dizziness, Denies headache(s), Denies numbness, Denies tingling and Denies weakness Psych Reports anxiety and Reports depression Endo Denies fatigue Aller/Immun Denies wheezing Physical exam (Primary Care) Vital Signs: Last Vital Signs Temp 98.0 F 11/12/24 10:16 Pulse 47 L 11/12/24 10:16 Resp 16 11/12/24 10:16 BP 122/71 11/12/24 10:16 Pulse Ox 98 11/12/24 10:16 Oxygen Delivery Method Room Air 11/12/24 10:16 BMI result Body Mass Index 25.1 Tobacco/Smoking Status: Tobacco use Status Tobacco use date assessed 11/12/24 11/12/24 10:21 Patient Tobacco Use Status Former Tobacco user 11/12/24 10:12 Tobacco use type Cigarette 11/12/24 10:12 e-Cigarette/Vaping Use Never Used 11/12/24 10:12 PHQ-9: PHQ-9 Score PHQ-9: Total score 10 11/12/24 10:12 Depression Screening Interpretation: Positive Depression Screening Follow-up: Declines treatment Thrive Assessment: Date of Thrive Assessment Date Thrive assessed 11/05/24 11/12/24 10:12 Currently or been in a relationship where the following occur: No concerns reported Const General: well developed; No acute distress Nutritional Appearance: well nourished Orientation/consciousness: patient oriented x3 HENMT Head: Yes normocephalic and Yes atraumatic Eyes General: appearance normal, both eyes and all related structures Pupils: Equal, round and reactive pupils present EOM: EOMs intact bilaterally Resp Effort & Inspection: normal respiratory effort Neuro General: patient oriented x3 and gait normal Cranial nerves: Yes Equal, round and reactive pupils present Psych Affect: normal affect Coding Level of Care Code Est Pt Level 3 (67937) Diagnoses Cervicalgia M54.2 Depression with anxiety F41.8 Assessment & Plan Assessment & Plan (1) Cervicalgia: Comment: cervical spondylosis Code(s): M54.2 - Cervicalgia Category: Medical Plan: Cervicalgia with muscle strain/spasm Ice/heat, relative rest and then gentle stretching as he begins to improve. Try celecoxib Will give him a short course of a muscle relaxant We discussed physical therapy but he wants to try stretching and exercises on his own first. He will let know if he is improving (2) Depression with anxiety: Code(s): F41.8 - Other specified anxiety disorders Category: Medical Plan: Patient declines treatment at this time Can readdress as of visit Medications: New celecoxib 200 mg PO BID PRN 60 caps 0RF pain 30 days cyclobenzaprine 10 mg PO BID PRN 20 tabs 0RF muscle spasm 10 days
[2024-11-12 10:16] VITALS: BP 122/71; PULSE 47; RESP 16; TEMP 36.7; O2SAT 98; BMI 25.1
== END 2024-11-12 10:48 | disposition home or self-care (01) ==
LOC: HO.HMCFM 10:01
PROVIDERS: PCP Family Medicine; Visit Provider Family Medicine
DX: M54.2 Cervicalgia (principal); F41.8 Other specified anxiety disorders

== ENCOUNTER 2024-12-30 09:56 | Outpatient (REF) | payer OTHER, SELFPAY ==
--- NOTE | ~2024-12-30 | US_ITS ---
CLINICAL HISTORY: N20.0 - Calculus of kidney US of kidneys Comparison: None provided Findings: Right kidney is normal in size, echogenicity and morphology, 11.6 cm in length. Stable 7 mm simple cyst of the upper pole, 3 mm calculus in the midpole and 6 mm calculus in the lower pole, increased. No hydronephrosis or abnormal vascular flow. Left kidney is normal in size, echogenicity and morphology, 11.2 cm in length. New 9 mm avascular cyst in the upper pole, new 4 mm calculus in the midpole. No hydronephrosis or abnormal vascular flow. Impression: Nonobstructing bilateral nephrolithiasis. This document has been electronically signed by: Tracy Altman MD on 12/30/2024 14:00:51
--- OUTSIDE RECORDS SUMMARY | 2024-12-30 11:15 | XMS_ITS | Clinical Summary ---
Author Organization [facility] Address [address] [place] [id number] Phone Care Team Providers Care Esthetician And Manager Medical Spa Name Role Phone Neeraj Guerrero DO Primary Care Provider [phone] Allergies No known active allergies Medications cyclobenzaprine (FLEXERIL) 5 MG tablet Take 5 mg by mouth 3 (three) times a day as needed for muscle spasms. Active rosuvastatin (CRESTOR) 10 MG tablet Take 10 mg by mouth daily. Active diclofenac sodium (VOLTAREN) 1 % GelIndications: Right knee pain,Traumatic arthritis of right knee Apply 2 g topically 4 (four) times a day. 1 Tube 2 Active Active Problems No known active problems Social History Tobacco Use Types Packs/Day Years Used Date Smoking Tobacco: Former Smokeless Tobacco: Never Education Answer Date Recorded Are you interested in more education? Not on aleksandra e 08/24/2022 Are you concerned about learning? Not on file 08/24/2022 No 08/24/2022 No 08/24/2022 Digital Access Answer Date Recorded No 09/22/2022 No 09/22/2022 No 09/22/2022 Reliable internet access at home? Not on file 09/22/2022 Device with a working camera? Not on file Sex and Gender Information Value Date Recorded Sex Assigned at Not on file Legal Sex Male 3:05 PM EST Gender Identity Not on file Sexual Orientation Not on file Last Filed Vital Signs Vital Sign Reading Time Taken Comments Blood Pressure - - Pulse - - Temperature - - Respiratory Rate - - Oxygen Saturation - - Inhaled Oxygen Concentration - - Weight 82.6 kg (182 lb) 05/11/2020 9:06 AM EST Height 177.8 cm (5' 10 ) 05/11/2020 9:06 AM EST Body Mass Index 26.11 05/11/2020 9:06 AM EST Plan of Treatment Health Maintenance Due Date Last Done Comments Adult Td,Tdap Booster 1969 LIPID PANEL 1969 DEPRESSION SCREENING 1981 SMOKING Hx and SMOKELESS TOBACCO SCREENING 1982 HEPATITIS C SCREENING 07/29/1987 HIV ONE-TIME SCREENING (18-6 5 YEARS) 07/29/1987 COLOGUARD 2014 COLONOSCOPY 2014 COLORECTAL CANCER SCREENING 2014 FIT TEST 2014 FOBT 2014 SIGMOIDOSCOPY 2014 VIRTUAL COLONOSCOPY 2014 PNEUMOCOCCAL VACCINES (50+ years) (1 of 1 - PCV) 07/29/2019 ZOSTER VACCINES (1 of 2) 07/29/2019 INFLUENZA VACCINE (#1) 2024 COVID-19 VACCINE (3 - 2024-2 6 season) 2024 09/13/2020, 08/17/2020 HEPATITIS A VACCINES Aged Out No long er eligible based on patient's age to complete this topic HIB VACCINES Aged Out No longer eligi ble based on patient's age to complete this topic MENINGOCOCCAL VACCINES (ACWY) Aged Out No longer eligible based on patient's age to complete this topic MENINGOCOCCAL VACCINES (B) Aged Out N o longer eligible based on patient's age to complete this topic Medical Devices Not on file Insurance [employer] PPO CIGNA CARELINK PPO CIGNA CARELINK PPO CIGNA CARELINK PPO CIGNA CARELINK PPO CIGNA CARELINK PPO CIGNA CARELINK PPO CIGNA CARELINK PPO CIGNA CARELINK PPO [employer] Care Teams Esthetician And Manager Medical Spa Relationship Specialty Start Date End Date Neeraj Guerrero DO [address] [place] [address] PCP - General Internal Medicine 04/12/20 Additional Source Comments The information contained in this document represents components of the legal health record. It is not the complete legal health record.[facility]
== END 2024-12-30 09:57 | disposition home or self-care (01) ==
LOC: HO.US 09:56
PROVIDERS: PCP Family Medicine; Visit Provider Urology
DX: N20.0 Calculus of kidney (principal)
CPT/HCPCS: 76775

== ENCOUNTER → 2024-12-30 09:58 | Outpatient (BNV) | payer OTHER, SELFPAY | PROVIDERS: PCP Family Medicine; Visit Provider Radiology Diagnostic Radiology | DX: N20.0 Calculus of kidney (principal) | CPT/HCPCS: 76775 ==

== ENCOUNTER 2025-01-06 11:23 | Outpatient (AMB) | payer OTHER, SELFPAY ==
[2025-01-06 12:01] VITALS: BP 138/64; PULSE 74; TEMP 36.6; O2SAT 95; BMI 25.8
--- NOTE | 2025-01-06 12:01 | AM.OFFWIN_ITS ---
Intake Vital Signs 01/06/25 12:01 Height 5 ft 9 in Weight 175 lb BMI 25.8 BP 138/64 Blood Pressure Location Rt brachial Position Sitting Pulse 74 Pulse Source Pulse Oximeter Temp 97.9 F Temp Source Oral Pulse Oximetry (%) 95 Oxygen Delivery Method Room Air Intake Visit Reasons: EP-lumbar pain & lt leg pain Intake Note: pt presents with pain at left lower back radiating down to toes since 11/29 Patient Tobacco Use Status: Former Tobacco user Allergies Latex, Natural Rubber Allergy (Severe, Verified 01/06/25 12:03) Blister Fish Containing Products Adverse Reaction (Intermediate, Verified 01/06/25 12:03) nausea Do you need a note to return to daycare/school/sports/work: No HPI HPI Comments History of Present Illness Details History - The patient is a 54-year-old male pres enting with low back pain and sciatica. - The low back pain started on November d after lifting a heavy object, leading to immediate discomfort and worsening over time. - The patient continued exercising, whic h may have aggravated the condition, and reports a burning sensation and weakness on the left side. - No bowel or bladder control issues wer e noted, but a change in stool color was observed, likely due to dietary factors. - Pain management included Celebrex and ibuprofen, with ibuprofen being more effective typically but he hasn't used any since this pain started. - Cyclobenzaprine was used for muscle sp asms, aiding sleep but not significantly reducing back pain. - The patient has a history of degenerat fausto disc disease, potentially contributing to the symptoms. + Physical Exam General: cooperative, healthy appearing and comfortable, patient oriented x3 Head: Yes normal to inspection and Yes normocephalic General nose exam: Normal external nose present Face and sinus: Yes normal facial exam Effort & Inspection: normal respiratory effort and able to speak in complete sentences Back/spine: no CVA tenderness bilaterally cervical, thoracic and lumbar spine normal to inspection cervical ROM normal, thoracic ROM normal, lumbar ROM normal no Cervical, thoracic or lumbar spine tenderness TTP on left low back into left buttocks, gait normal Extremities: Straight leg raise test positive on left; motor strength normal bilaterally, sensation intact bilaterally except for weakness noted on the left side [facility] Medical History Anxiety Hypersomnia Snoring LLQ pain Gross hematuria Lower back pain (~01/2023) Renal calculi IBS (irritable bowel syndrome) Elevated cholesterol Chronic back pain Borderline diabetes Surgical History History of umbilical hernia repair (05/16/21) Hx of colonoscopy (02/16/21) History of esophagogastroduodenoscopy (EGD) (02/16/21) Hx of lithotripsy H/O hernia repair History of laparotomy History of reconstruction of anterior cruciate ligament tear Family History Maternal Uncle Skin cancer Other Mental health disorder Substance use disorder Social History Housing: House Are you a primary patient care technician instructor to a significant other at home: No Do you presently have visiting nurse or other home services: No Alcohol intake: former Patient Tobacco Use Status: Former Tobacco user Tobacco use type: Cigarette Years Smoked: 14 e-Cigarette/Vaping Use: Never Used Second Hand Smoke Exposure: No service: No Current occupational status: employed 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 Current occupational exposures/hazards: No Cognitive needs: No Hearing needs: No Vision needs: No Review of Systems Const All systems reviewed & are unremarkable except as noted in HPI and below Physical Exam Vital Signs: Last Vital Signs Temp 97.9 F 01/06/25 12:01 Pulse 74 01/06/25 12:01 BP 138/64 01/06/25 12:01 Pulse Ox 95 01/06/25 12:01 Oxygen Delivery Method Room Air 01/06/25 12:01 BMI result Body Mass Index 25.8 Assessment & Plan Assessment & Plan (1) Left-sided low back pain with sciatica: Code(s): M54.42 - Lumbago with sciatica, left side Qualifiers: Chronicity: acute Sciatica laterality: sciatica of left side Qualified Code(s): M54.42 - Lumbago with sciatica, left side Plan: Patient was informed and verbally consented to the use of an ambient scribe for clinic note documentation during this visit. - Prednisone prescribed for inflammation and pain management. - Avoid concurrent use of ibuprofen with prednisone to prevent gastrointestinal issues. - Physical therapy may be considered if symptoms do not improve. - If you have any loss of control of bladder or bowels, go to the ED. Medications: New prednisone 50 mg PO QAM 5 tabs 0RF cyclobenzaprine 5 mg PO Q8H PRN 20 tabs 0RF Muscle Spasm Discontinued cyclobenzaprine Discontinued Reason: Doctor's Order 10 mg PO BID 10 days PRN 20 tabs 0RF muscle spasm celecoxib Discontinued Reason: Doctor's Order 200 mg PO BID 30 days PRN 60 caps 0RF pain Coding Level of Care Code Est Pt Level 3 (35304) Diagnoses Acute left-sided low back pain with left-sided sciatica M54.42 Chronicity: acute Sciatica laterality: sciatica of left side
--- OUTSIDE RECORDS SUMMARY | 2025-01-06 14:31 | XMS_ITS | Clinical Summary ---
Author Organization [facility] Address [address] [place] [phone] Phone Care Team Providers Care Prosthetic Dentist Name Role Phone Neeraj Guerrero DO Primary Care Provider [phone]- [phone] Allergies No known active allergies Medications cyclobenzaprine [...] topic Medical Devices Not on file Insurance [employer] PPO CIGNA [employer]ELINK PPO CIG[employer] PPO [employer]IG[employer] PPO CIG[employer] PPO CIGNA [employer] PPO CIG[employer] PPO CIG[employer] PPO CIGNA CARELINK PPO [employer] Care Teams Prosthetic Dentist Relationship Specialty Start Date End Date Neeraj Guerrero DO [address] [place] [address] PCP - General Internal Medicine 04/12/20 Additional Source Comments The information contained in this document represents components of the legal health record. It is not the complete legal health record.[facility]
== END 2025-01-06 13:48 | disposition home or self-care (01) ==
PROVIDERS: PCP Family Medicine; Visit Provider Physician Assistant
DX: M54.42 Lumbago with sciatica, left side (principal)

== ENCOUNTER 2025-01-19 13:51 | Outpatient (AMB) | payer OTHER, SELFPAY ==
--- NOTE | 2025-01-19 14:04 | MHC.PC.OV ---
Vital Signs 01/19/25 14:10 Height 5 ft 9 in Weight 175 lb 2 oz BMI 25.9 BP 140/78 H Blood Pressure Location Rt brachial Position Sitting Respiration 14 Pulse 61 Pulse Source Pulse Oximeter Temp 97.9 F Temp Source Temporal Artery Scan Pulse Oximetry (%) 97 Oxygen Delivery Method Room Air Intake Visit Reasons: severe lower back pain Intake Note: Teddy presents in the office today for severe back pain. Allergies Latex, Natural Rubber Allergy (Severe, Verified 01/19/25 14:07) Blister Fish Containing Products Adverse Reaction (Intermediate, Verified 01/19/25 14:07) nausea Tobacco use date assessed: 01/19/25 Dental Screening Dental Screen Date: 01/19/25 Did you have a dental visit in the last 12 months?: Yes Did you have a dental problem in the last 6 months where you did not have access to dental care?: No Was dental information given to patient?: Patient has dentist HPI severe lower back pain HPI Details 54 y/o male presents today with complaints of back pain. Recent visit to urgent care. Was given cyclobenzaprine, prednisone. Pt notes he recently felt a pop which caused him significant pain. Pain shoots to hip. Has been taking ibuprofen OTC for relief, 400mg twice a day. [facility] Medical History Anxiety Hypersomnia Snoring LLQ pain Gross hematuria Lower back pain (~01/2023) Renal calculi IBS (irritable bowel syndrome) Elevated cholesterol Chronic back pain Borderline diabetes Surgical History History of umbilical hernia repair (05/16/21) Hx of colonoscopy (02/16/21) History of esophagogastroduodenoscopy (EGD) (02/16/21) Hx of lithotripsy H/O hernia repair History of laparotomy History of reconstruction of anterior cruciate ligament tear Family History Maternal Uncle Skin cancer Other Mental health disorder Substance use disorder Social History (Updated 01/19/25 @ 14:10 by Ange Adler CMA) Housing: House Are you a primary care program director to a significant other at home: No Do you presently have visiting nurse or other home services: No Alcohol intake: former Patient Tobacco Use Status: Former Tobacco user Tobacco use type: Cigarette Years Smoked: 14 e-Cigarette/Vaping Use: Never Used Second Hand Smoke Exposure: No service: No Current occupational status: employed 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 Current occupational exposures/hazards: No Cognitive needs: No Hearing needs: No Vision needs: No Questionnaire Thrive Questionnaire Date Thrive assessed: 11/05/24 I am a: Patient What is your living situation today?: I have a steady place to live Within the past 12 months, did the food you bought not last and you didn't have the money to get more?: Never true Within the past 12 months, did you worry whether your food would run out before you got money to buy more?: Never true Do you have trouble paying for medicines?: No Do you have trouble getting transportation to medical appointments?: No Do you have trouble paying your heating and electricity bill?: No Do you have trouble taking care of your child, family member or friend?: No Do you have trouble with day-to-day activities such as bathing, preparing meals, shopping, managing finances, etc.?: No Are you currently unemployed and looking for a job?: No Are you interested in more education?: Yes Please select the resources that you would like help with: None Currently or been in a relationship where the following occur: No concerns reported THRIVE Score: 0 AUDIT C Alcohol Use Questionnaire (AUDIT-C) 3. How often do you have six or more drinks on one occasion?: Never Total Score: 0 LESLY-7 AMB Questionnaire LESLY-7 Date LESLY - 7 assessed: 11/07/23 Source: Developed by Drs. Dylan Carr, Esperanza Adames, Avery Chin and colleagues, with an educational jessica from [employer]. Review of Systems Const Denies chills, Denies fatigue, Denies fever(s), Denies headache(s) and Denies weakness ENT Denies dizziness and Denies headache(s) Card Denies dyspnea Resp Denies cough, Denies dyspnea, Denies wheezing and Denies other (shortness of breath) Musc Reports back pain, Denies numbness and Denies tingling Neuro Denies dizziness, Denies headache(s), Denies numbness, Denies tingling and Denies weakness Psych Denies anxiety and Denies depression Endo Denies fatigue Aller/Immun Denies wheezing Physical exam (Primary Care) Vital Signs: Last Vital Signs Temp 97.9 F 01/19/25 14:10 Pulse 61 01/19/25 14:10 Resp 14 01/19/25 14:10 BP 140/78 H 01/19/25 14:10 Pulse Ox 97 01/19/25 14:10 Oxygen Delivery Method Room Air 01/19/25 14:10 BMI result Body Mass Index 25.9 Tobacco/Smoking Status: Tobacco use Status Tobacco use date assessed 01/19/25 01/19/25 14:06 Patient Tobacco Use Status Former Tobacco user 01/19/25 14:10 Tobacco use type Cigarette 01/19/25 14:10 e-Cigarette/Vaping Use Never Used 01/19/25 14:10 Thrive Assessment: Date of Thrive Assessment Date Thrive assessed 11/05/24 01/19/25 14:06 Currently or been in a relationship where the following occur: No concerns reported Const General: well developed; No acute distress Nutritional Appearance: well nourished Orientation/consciousness: patient oriented x3 HENMT Head: Yes normocephalic and Yes atraumatic Eyes General: appearance normal, both eyes and all related structures Pupils: Equal, round and reactive pupils present EOM: EOMs intact bilaterally Resp Effort & Inspection: normal respiratory effort Neuro General: patient oriented x3 and gait normal Cranial nerves: Yes Equal, round and reactive pupils present Psych Affect: normal affect Coding Level of Care Code Est Pt Level 3 (44500) Diagnoses Back pain M54.9 Assessment & Plan Assessment & Plan (1) Back pain: Code(s): M54.9 - Dorsalgia, unspecified Category: Medical Plan: Ongoing severe low back pain with left-sided sciatica Likely ongoing and recurrent strain injuries Recommended he stay out of work and observe relative rest. Walking changing position encouraged but no exercise yet. Use ibuprofen and cyclobenzaprine. Can use short course of Percocet for breakthrough pain. He would preferentially and some cold. Check x-ray of lumbar spine He will follow-up in 7-10 days to review x-ray and re-evaluate. Consider physical therapy versus referral to Ortho. Will call patient sooner if x-ray indicates action required soon Orders: Orders XR lumbar spine 2-3V Today M54.42 - Lumbago with sciatica, left side Medications: New oxycodone-acetaminophen 5-325 mg (Percocet) MassPat Verified. Partial Fill upon patient request. 1 tab PO BID PRN 10 tabs 0RF pain 5 days ibuprofen 800 mg PO Q8H PRN 42 tabs 0RF pain 14 days Changed From cyclobenzaprine 5 mg PO Q8H PRN 20 tabs 0RF Muscle Spasm To cyclobenzaprine 5 mg PO BID PRN 14 tabs 0RF Muscle Spasm 7 days
[2025-01-19 14:10] VITALS: BP 140/78; PULSE 61; RESP 14; TEMP 36.6; O2SAT 97; BMI 25.9
--- OUTSIDE RECORDS SUMMARY | 2025-01-19 17:03 | XMS_ITS | Clinical Summary ---
Author Organization [facility] Address [address] [facility] [address] [place] [phone] Phone Care Team Providers Care Qa Architect Name Role Phone Neeraj Guerrero DO Primary Care Provider [phone]- [phone] Allergies No known active allergies Medications cyclobenzaprine [...] topic Medical Devices Not on file Insurance [employer] PPO [employer]IGNA CAR[employer]INK PPO CIG[employer] PPO [employer]IG[employer] PPO CIG[employer] PPO CIGNA [employer]INK PPO CIG[employer] PPO CIGNA [employer]EL[employer] PPO CIGNA CARELINK PPO [employer] Care Teams Qa Architect Relationship Specialty Start Date End Date Neeraj Guerrero DO [address] [place] [address] PCP - General Internal Medicine 04/12/20 Additional Source Comments The information contained in this document represents components of the legal health record. It is not the complete legal health record.[facility]
== END 2025-01-19 14:48 | disposition home or self-care (01) ==
LOC: HO.HMCFM 13:52
PROVIDERS: PCP Family Medicine; Visit Provider Family Medicine
DX: M54.9 Dorsalgia, unspecified (principal)

== ENCOUNTER 2025-01-19 13:51 | Outpatient (REF) | payer OTHER, SELFPAY ==
--- NOTE | ~2025-01-19 | XR_ITS ---
EXAMINATION: XR LUMBOSACRAL SPINE CLINICAL INFORMATION: M54.42 - Lumbago with sciatica, left side COMPARISON: February 03, 2020 TECHNIQUE: AP and lateral views FINDINGS: Multilevel marginal osteophyte formation and endplate sclerosis and decreased intervertebral disc height involving mostly the lower thoracic and lower lumbar spine. 2 mm retrolisthesis L4-5. Decreased intervertebral disc height at L5-S1. No acute cortical disruption. No lytic or blastic lesions. XR/XR lumbar spine 2-3V IMPRESSION: Multilevel lower thoracic and lower lumbar spondylosis with likely grade 1 retrolisthesis L4-5. Electronically signed by: Matias Bolaños MD 01/19/2025 03:51 PM EDT
== END 2025-01-19 13:52 | disposition home or self-care (01) ==
LOC: HO.XRAY 13:51
PROVIDERS: PCP Family Medicine; Visit Provider Family Medicine
DX: M54.42 Lumbago with sciatica, left side (principal); M54.9 Dorsalgia, unspecified
CPT/HCPCS: 72100

== ENCOUNTER → 2025-01-19 15:14 | Outpatient (BNV) | payer OTHER, SELFPAY | PROVIDERS: PCP Family Medicine; Visit Provider Radiology Diagnostic Radiology | DX: M47.814 Spondylosis without myelopathy or radiculopathy, thoracic region (principal); M47.816 Spondylosis without myelopathy or radiculopathy, lumbar region | CPT/HCPCS: 72100 ==

== ENCOUNTER 2025-01-21 13:47 | Outpatient (AMB) | payer OTHER, SELFPAY ==
--- NOTE | 2025-01-21 13:43 | MHC.PC.OV ---
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 Lumbar spine x-ray 01/19/25 showed: Multilevel lower thoracic and lower lumbar spondylosis with likely grade 1 retrolisthesis L4-5. Reports ongoing significant pain. Reports he is unable to walk. Denies any loss of bladder function. He notes percocet did not seem to do much. [facility] Medical History Anxiety Hypersomnia Snoring LLQ pain Gross hematuria Lower back pain (~01/2023) Renal calculi IBS (irritable bowel syndrome) Elevated cholesterol Chronic back pain Borderline diabetes Surgical History History of umbilical hernia repair (05/16/21) Hx of colonoscopy (02/16/21) History of esophagogastroduodenoscopy (EGD) (02/16/21) Hx of lithotripsy H/O hernia repair History of laparotomy History of reconstruction of anterior cruciate ligament tear Family History Maternal Uncle Skin cancer Other Mental health disorder Substance use disorder Social History (Updated 01/19/25 @ 14:10 by Ange Adler CMA) Housing: House Are you a primary animal care assistant to a significant other at home: No Do you presently have visiting nurse or other home services: No Alcohol intake: former Patient Tobacco Use Status: Former Tobacco user Tobacco use type: Cigarette Years Smoked: 14 e-Cigarette/Vaping Use: Never Used Second Hand Smoke Exposure: No service: No Current occupational status: employed 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 Current occupational exposures/hazards: No Cognitive needs: No Hearing needs: No Vision needs: No Questionnaire Thrive Questionnaire Date Thrive assessed: 11/05/24 I am a: Patient What is your living situation today?: I have a steady place to live Within the past 12 months, did the food you bought not last and you didn't have the money to get more?: Never true Within the past 12 months, did you worry whether your food would run out before you got money to buy more?: Never true Do you have trouble paying for medicines?: No Do you have trouble getting transportation to medical appointments?: No Do you have trouble paying your heating and electricity bill?: No Do you have trouble taking care of your child, family member or friend?: No Do you have trouble with day-to-day activities such as bathing, preparing meals, shopping, managing finances, etc.?: No Are you currently unemployed and looking for a job?: No Are you interested in more education?: Yes Please select the resources that you would like help with: None Currently or been in a relationship where the following occur: No concerns reported THRIVE Score: 0 LESLY-7 AMB Questionnaire LESLY-7 Date LESLY - 7 assessed: 11/07/23 Source: Developed by Drs. Dylan Carr, Esperanza Adames, Avery Chin and colleagues, with an educational jessica from [employer]. Review of Systems Const Denies chills, Denies fatigue, Denies fever(s), Denies headache(s) and Denies weakness ENT Denies dizziness and Denies headache(s) Card Denies dyspnea Resp Denies cough, Denies dyspnea, Denies wheezing and Denies other (shortness of breath) Musc Denies numbness and Denies tingling Neuro Denies dizziness, Denies headache(s), Denies numbness, Denies tingling and Denies weakness Psych Denies anxiety and Denies depression Endo Denies fatigue Aller/Immun Denies wheezing Physical exam (Primary Care) Tobacco/Smoking Status: Tobacco use Status Tobacco use date assessed 01/21/25 01/21/25 13:45 Patient Tobacco Use Status Former Tobacco user 01/21/25 13:45 Tobacco use type Cigarette 01/21/25 13:45 e-Cigarette/Vaping Use Never Used 01/21/25 13:45 Thrive Assessment: Date of Thrive Assessment Date Thrive assessed 11/05/24 01/21/25 13:45 Currently or been in a relationship where the following occur: No concerns reported Telehealth Telehealth Minutes spent on Phone/Video with Pt.: 10 Coding Level of Care Code Tele Est Pt Level 2 (64949) Diagnoses Back pain M54.9 Assessment & Plan Assessment & Plan (1) Back pain: Code(s): M54.9 - Dorsalgia, unspecified Category: Medical Plan: Had seen patient 2 days ago for back pain Advised conservative treatments and ordered an x-ray X-ray does show a mild, grade 1 spondylolisthesis Patient says pain has worsened significantly. Given his x-ray results, pain is somewhat out of proportion to expected pain with that imaging. Patient denies any loss of bowel or bladder function however he says that he is no longer able to walk or bear weight. Given this, I advised go to the emergency department. He can follow-up with me afterwards. Recommending he stay out of work through February 07 and may return tentatively on 02/08/2025.
--- OUTSIDE RECORDS SUMMARY | 2025-01-21 18:19 | XMS_ITS | Clinical Summary ---
Author Organization [facility] Address [address] [facility] [address] [address] [place] [phone] Phone Care Team Providers Care Artificial Plastic Eye Maker Name Role Phone Neeraj Guerrero DO Primary Care Provider [phone]- [phone] Allergies No known active allergies Medications cyclobenzaprine [...] topic Medical Devices Not on file Insurance [employer] PPO CIGNA CARELINK PPO CIGNA [employer] PPO CIGNA [employer] PPO CIGNA [employer] PPO CIGNA [employer]INK PPO CIGNA [employer]INK PPO CIGNA CARELINK PPO CIGNA CARELINK PPO [employer] Care Teams Artificial Plastic Eye Maker Relationship Specialty Start Date End Date Neeraj Guerrero DO [address] [place] [address] PCP - General Internal Medicine 04/12/20 Additional Source Comments The information contained in this document represents components of the legal health record. It is not the complete legal health record.[facility]
== END 2025-01-21 17:05 | disposition home or self-care (01) ==
LOC: HO.HMCFM 13:47
PROVIDERS: PCP Family Medicine; Visit Provider Family Medicine
DX: M54.9 Dorsalgia, unspecified (principal)

== ENCOUNTER 2025-01-21 15:56 | Emergency (ER) | payer OTHER, SELFPAY ==
--- NOTE | ~2025-01-21 | CT_ITS ---
CLINICAL HISTORY: lumbar radiculopathy CT lumbar spine without contrast Comparison: None provided Findings: Vertebral alignment is within normal limits. Mild osteopenia. L4-5: Broad-based disc bulge with mild central canal stenosis, mild right and [id number] left neural foraminal stenosis with impingement of the exiting L4 nerve roots. L5-S1: Moderate DJD. Broad-based disc bulge with mild central canal stenosis and moderate to severe bilateral spondylitic neural foraminal stenosis with impingement of the exiting L5 nerve. Right renal lower pole 0.3 cm, 0.4 cm nonobstructing nephroliths. Mild calcified atherosclerotic disease of the abdominal aorta. IMPRESSION: 1. L5-S1: Moderate degenerative joint disease with broad-based disc bulge causing moderate to severe bilateral neural foraminal stenosis and L5 nerve root impingement. 2. L4-5: Broad-based disc bulge with mild central canal stenosis and bilateral neural foraminal stenosis, more pronounced on the left. 3. Mild osteopenia. 4. Right renal lower pole nonobstructing nephroliths, as described above. 5. Mild calcified atherosclerosis of the abdominal aorta. Consider MRI of the lumbar spine. This document has been electronically signed by: Addi Mann MD on 01/21/2025 21:51:31
[2025-01-21 16:27] VITALS: BP 149/81; PULSE 67; RESP 18; TEMP 36.2; O2SAT 99; BMI 25.7
[2025-01-21 18:21] LABS: MANUAL DIFF FLAG NO
[2025-01-21 18:26] LABS: Hematocrit 45.5 % (42.0-52.0); Hemoglobin 16.7 g/dl (14.0-18.0); Imm Gran Abs Auto 0.05 X10*3/uL (0.00-0.03); Imm Gran Pct Auto 0.5 % (0.0-0.4); Lymphocytes Absolute Auto 2.0 X10*3/uL (1.2-4.9); Mean Corpuscular HGB Conc 36.7 g/dl (31.0-36.0); Mean Corpuscular Hemoglobin 30.7 pg (27.0-33.0); Mean Corpuscular Volume 83.6 fL (80.0-98.0); NRBC Abs Auto 0.000 X10*3/uL (0.0-0.012); NRBC Pct Auto 0.0 /100WBC (0.0-0.2); Platelet Count 165 X10*3/uL (160-400); Red Blood Count 5.44 X10*6/uL (4.60-5.80); White Blood Count 10.8 X10*3/uL (4.8-10.8)
[2025-01-21 18:39] LABS: Alanine Aminotransferase 45 U/L (0-40); Albumin Level 4.9 g/dL (3.5-5.0); Alkaline Phosphatase 69 U/L (39-117); Anion Gap 13 (12-20); Aspartate Amino Transferase 40 U/L (5-37); Blood Urea Nitrogen 17 mg/dL (9-16); Calcium 9.5 mg/dL (8.4-10.2); Carbon Dioxide 26 mmol/L (22-29); Chloride 106 mmol/L (96-108); Creatinine Clr Calc Pharmacy 98.1; Estimated Glomerular Filt Rate > 60; Potassium 4.1 mmol/L (3.3-5.1); Sodium 141 mmol/L (135-145); Total Protein 7.8 g/dL (6.5-8.0)
--- NOTE | 2025-01-21 19:04 | ED_ITS ---
HPI - Back Pain/Injury General Chief Complaint: Back Pain/Injury Stated Complaint: back and left leg pain (Sciatica) Time Seen by Provider: 01/21/25 19:53 Source: patient Mode of arrival: ambulatory Limitations: no limitations History of Present Illness ED Provider: HPI Narrative: 54-year-old male in originally hurt his back 2 months ago, thereafter he was trying to do his own research and managed his back pain with stretches, strengthening exercises, he also at some point went to urgent care was not steroids with some marginal improvement, he felt good enough to fly to [place] where he came back from proximally 4 days ago he attempted to play basketball there but he was already having a hard time walking, he went to see his PCP had x-rays done, started on Percocet 1 pill twice daily as needed for pain and cyclobenzaprine without much relief, states has not slept for 2 days and has a hard time walking, pain is shooting down the back of his left leg to the back of the knee, he has no motor weakness, no sensory deficits, no numbness in the groin, no fevers or chills, no loss of bowel or bladder function. No history of IV drug use. He called his PCP and because PCP was concerned of the amount of pain patient experienced he was sent to the ER. Related Data Home Medications ?Medication ?Instructions ?Recorded ?Confirmed glucosamine HCl 500 mg tablet 500 mg PO DAILY 08/06/23 11/12/24 ascorbic acid (vitamin C) 500 mg 500 mg PO DAILY 11/0611/12/24 tablet cholecalciferol (vitamin D3) 25 25 mcg PO DAILY 11/12/24 mcg (1,000 unit) capsule Previous Rx's ?Medication ?Instructions ?Recorded pyridoxine (vitamin B6) 50 mg 50 mg PO DAILY 90 days # 90 tabs 11/23/24 tablet cyclobenzaprine 5 mg tablet 5 mg PO BID PRN Muscle Spa sm 7 01/19/25 days #14 tabs oxycodone-acetaminophen 5 mg-325 1 tab PO BID PRN pain 5 days #10 01/19/25 mg tablet (Percocet) tabs capsaicin 0.035 % topical patch 1 patch topical QID NM N pain 7 01/21/25 days #10 ea diazepam 2 mg tablet (Valium) 4 mg (2 x 2 mg) PO TID P RN spasms 01/21/25 3 days #14 tabs lidocaine 5 % topical patch 1 patch topical DAILY #15 ea 01/21/25 methylprednisolone 4 mg tablets in 4 mg PO DAILY #21 e a 01/21/25 a dose pack (Medrol (Jasiel)) Allergies Allergy/AdvReac Type Severity Reaction Status Date / Time Latex, Natural Rubber Allergy Severe Blister Verified 01/21/25 16:29 Fish Containing Products AdvReac Intermediate nausea Verified 01/21/25 16:29 Review of Systems 2 Constitutional: Constitutional: Reports as per HPI [facility] Past Medical History Medical History Anxiety Hypersomnia Snoring LLQ pain Gross hematuria Lower back pain (~01/2023) Renal calculi IBS (irritable bowel syndrome) Elevated cholesterol Chronic back pain Borderline diabetes Surgical History History of umbilical hernia repair (05/16/21) Hx of colonoscopy (02/16/21) History of esophagogastroduodenoscopy (EGD) (02/16/21) Hx of lithotripsy H/O hernia repair History of laparotomy History of reconstruction of anterior cruciate ligament tear Family History Family History Maternal Uncle Skin cancer Other Mental health disorder Substance use disorder Social History Social History (Updated 01/19/25 @ 14:10 by Ange Adler CMA) Housing: House Are you a primary director critical care to a significant other at home: No Do you presently have visiting nurse or other home services: No Alcohol intake: former Patient Tobacco Use Status: Former Tobacco user Tobacco use type: Cigarette Years Smoked: 14 Smoked in Last 30 Days: No e-Cigarette/Vaping Use: Never Used Second Hand Smoke Exposure: No Use of substances other than those prescribed or required for medical reasons: No Advance Directives: No Advance Directives Information Provided: No Do you have a plan to hurt others: No Plan service: No Current occupational status: employed 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 Current occupational exposures/hazards: No Cognitive needs: No Hearing needs: No Vision needs: No Physical Exam 2 Vital Signs: Vital Signs: Last Vital Signs Temp 98.1 F 01/21/25 20:56 Pulse 56 01/21/25 20:56 Resp 18 01/21/25 16:27 BP 161/73 H 01/21/25 20:56 Pulse Ox 99 01/21/25 20:56 O2 Del Method Room Air 01/21/25 20:56 BMI result Body Mass Index 25.7 Const: Other: * Gen: ?Overall well-appearing patient * Resp: ?No wheezing rales rhonchi no stridor moving air well * Abd: ?Bowel sounds are present, no tenderness no rebound no rigidity * MSK: Distally patient is able to push up and push down with his heels, generally no sensory deficits upper along his legs and along his buttocks no lower extremity edema * Skin: Warm, dry, intact, * Neuro: ?Alert and oriented x3, decreased movement in his legs secondary to pain but he has been ambulatory Course Course Course Narrative: This is an RME: Additional HPI, ROS, PE not included below will be deferred to primary provider. RME assessment and note performed by: Fidelina Hedrick PA-C This is a 54-year-old male who presents emergency department with concerns of low back pain that radiates down his left leg. No numbness or tingling into his groin. No loss of bladder or bowel control. History of sciatica, has been taking oral medications which has not been helping. 5/5 strength in lower extremities. Had x-ray 2 days ago, xray read as Multilevel lower thoracic and lower lumbar spondylosis with likely grade 1 retrolisthesis L4-5. Plan: Labs Medications Administered Discontinued Medications Generic Name Dose Route Start Last Admin Trade Name Mac PRN Reason Stop Dose Admin Dexamethasone 10 mg 01/21/25 20:14 01/21/25 20:37 Dexamethasone 2 Mg Tablet PO 01/21/25 20:15 10 mg ONCE ONE Administration Diazepam 2 mg 01/21/25 20:14 01/21/25 20:36 Diazepam 2 Mg Tablet PO 01/21/25 20:15 2 mg ONCE ONE Administration Hydromorphone HCl 1 mg 01/21/25 22:02 01/21/25 22:51 Hydromorphone Hcl 1 Mg/Ml Syringe IM 01/21/25 22:03 1 mg ONCE ONE Administration Protocol Ketorolac Tromethamine 15 mg 01/21/25 20:14 01/21/25 20:37 Ketorolac Tromethamine 15 Mg/Ml Vial IM 01/21/25 20:15 15 mg ONCE ONE Administration Lidocaine 1 patch 01/21/25 20:14 01/21/25 20:38 Lidocaine 4 % Patch Adh..Patch TRANSDERMA 01/21/25 20:15 1 patch ONCE ONE Administration Protocol Morphine Sulfate 15 mg 01/21/25 20:14 01/21/25 20:37 Morphine Sulfate Immed Release 15 Mg Tablet PO 01/21/25 20:15 15 mg ONCE ONE Administration Medical Decision Making Medical Decision Making MDM Narrative: 8:22 PM 01/21/2025 (Dr. Rosendo Garrett): This is now a chronic issue of initial injury 2 months that is progressively getting worse with episodes of improvement, has not had any official physical therapy, but now he states with his flare he is not able to tolerate local modalities or 10s, he has had some marginal improvement sounds like in November he went to urgent care with steroids, no loss of bowel or bladder function to suspect cauda equina, his x-ray with loss of lordosis indicating spasm, but no destructive lesions, no obvious spondylolisthesis, I will obtain CT to evaluate for any intrusion into the spinal canal but this is unlikely, he has not been really on a good pain regimen, and I will plan it out for him, did not feel there is any indication for emergent MRI as he has no risk factors for diskitis osteomyelitis or spinal epidural abscess and no evidence for cauda equina on exam or presentation, patient's care will be signed out to incoming provider I received sign-out from my colleague Dr. Garrett CT scan of the lumbar spine shows disc bulge causing moderate to severe bilateral neural foramina stenosis in L5 S1 nerve roots with impingement. Earlier today, patient received ketorolac, lidocaine patch, morphine sulfate p.o., Decadron 10 mg, diazepam 2 mg Patient states that he feels much more comfortable. However, patient is requesting if we can not give him 1 more dose of IM medication. Patient states that the p.o. diazepam really help him with the muscle spasms. Patient denies any urinary/fecal incontinence/retention. After receiving the medications, patient was able to walk to the bathroom. One dose of IM Dilaudid was given. Patient will be taking p.o. oxycodone and diazepam at bedtime only. I discussed with the patient the risks of addiction and risks of combining oxycodone diazepam. Patient has no history of drug use. Patient states that he will use this medication judiciously Differential Diagnosis Differential Diagnoses: The differential diagnosis associated with the presentation includes (Diskitis, osteomyelitis, spinal epidural abscess, cauda equina, musculoskeletal pain) Admission/Observation Consideration of admission/observation: Escalation of care including admission/observation considered Lab Data MDM Lab Attestation statement: I reviewed the patient's lab results. 01/21/25 18:17 01/21/25 18:17 Labs: Lab Results 01/21/25 Range/Units 18:17 WBC 10.8 (4.8-10.8) X10*3/uL RBC 5.44 (4.60-5.80) X10*6/uL Hgb 16.7 (14.0-18.0) g/dl Hct 45.5 (42.0-52.0) % MCV 83.6 (80.0-98.0) fL MCH 30.7 (27.0-33.0) pg MCHC 36.7 H (31.0-36.0) g/dl RDW 13.3 (11.0-16.0) % Plt Count 165 (160-400) X10*3/uL MPV 9.4 (9.4-12.4) fL Immature Gran % (Auto) 0.5 H (0.0-0.4) % Neut % (Auto) 71.5 (45-73) % Lymph % (Auto) 18.4 L (20-40) % Wolfe % (Auto) 7.1 (2-11) % Eos % (Auto) 1.9 (0-4) % Baso % (Auto) 0.6 (0-2) % Lymph # (Auto) 2.0 (1.2-4.9) X10*3/uL Wolfe # (Auto) 0.8 (0.1-1.2) X10*3/uL Eos # (Auto) 0.2 (0.0-0.4) X10*3/uL Baso # (Auto) 0.1 (0.0-0.2) X10*3/uL Abs Immat Gran (auto) 0.05 H (0.00-0.03) X10*3/uL Absolute Neuts (auto) 7.7 (2.0-8.3) x10*3/uL Absolute Nucleated RBC 0.000 (0.0-0.012) X10*3/uL Nucleated RBC % (auto) 0.0 (0.0-0.2) /100WBC ESR 2 (0-15) MM/HR Sodium 141 (135-145) mmol/L Potassium 4.1 (3.3-5.1) mmol/L Chloride 106 (96-108) mmol/L Carbon Dioxide 26 (22-29) mmol/L Anion Gap 13 (12-20) BUN 17 H (9-16) mg/dL Creatinine 0.85 (0.5-1.4) mg/dL Estim Creat Clear Calc 98.1 Estimated GFR > 60 Random Glucose 91 (60-115) mg/dL Calcium 9.5 (8.4-10.2) mg/dL Total Bilirubin 0.6 (0.0-1.0) mg/dL Direct Bilirubin 0.1 (0.0-0.5) mg/dL AST 40 H (5-37) U/L ALT 45 H (0-40) U/L Alkaline Phosphatase 69 (39-117) U/L C-Reactive Protein < 0.10 (< or = 0.50) mg/dL Total Protein 7.8 (6.5-8.0) g/dL Albumin 4.9 (3.5-5.0) g/dL Independent Interpretation I performed an independent interpretation of an: CT Scan Radiology Impression Discussion of test interpretation with radiology: I have reviewed the radiologist's reading. Radiologist Impression: Vertebral alignment is within normal limits. Mild osteopenia. L4-5: Broad-based disc bulge with mild central canal stenosis, mild right and [id number] left neural foraminal stenosis with impingement of the exiting L4 nerve roots. L5-S1: Moderate DJD. Broad-based disc bulge with mild central canal stenosis and moderate to severe bilateral spondylitic neural foraminal stenosis with impingement of the exiting L5 nerve. Right renal lower pole 0.3 cm, 0.4 cm nonobstructing nephroliths. Mild calcified atherosclerotic disease of the abdominal aorta. IMPRESSION: 1. L5-S1: Moderate degenerative joint disease with broad-based disc bulge causing moderate to severe bilateral neural foraminal stenosis and L5 nerve root impingement. 2. L4-5: Broad-based disc bulge with mild central canal stenosis and bilateral neural foraminal stenosis, more pronounced on the left. 3. Mild osteopenia. 4. Right renal lower pole nonobstructing nephroliths, as described above. 5. Mild calcified atherosclerosis of the abdominal aorta. Consider MRI of the lumbar spine. Prescription Management I considered prescription management with: Pain Medication Discharge Plan Discharge Clinical Impression: Chronic lumbar radiculopathy, Lumbar herniated disc Patient Disposition: Home, Self-Care Instructions: Lumbar Radiculopathy (ED) Additional Instructions: pattern grader supervisor capsaicin ointment patches these are very hot patches and place him to your back they work wonderful for spasms, use steroid pack as prescribed starting tomorrow, and take acetaminophen 975 mg every 6 hours around the clock for the next 3 days, use Valium as I prescribed ( you can take 2mg or 4 mg ) as needed to help with the pain and spasm, you can take Percocet that your PCP gave you but be mindful it also contains 325 mg of acetaminophen so once you take acetaminophen you just have to correct for that so you do not take more than a 1000 mg every [address] results discussed with the you Ultimately I think you would do well with TENS unit, ice and heat therapy You need official physical therapy You need outpatient MRI And it is very important you do not take Percocet at the same time as Valium, I will I would recommend that least 3 hours in between the doses Please follow-up with your primary care physician tomorrow. It is likely that you would benefit from physical therapy. If you have any worsening or new symptoms, please return to the emergency room or call 911 Prescriptions: New diazepam [Valium] 2 mg tablet 4 mg PO TID PRN (Reason: spasms) 3 Days Qty: 14 0RF methylprednisolone [Medrol (Jasiel)] 4 mg tablets,dose pack 4 mg PO DAILY Qty: 21 0RF Rx Instructions: Day 1: 24 mg on day 1 administered as 8 mg before breakfast, 4 mg after lunch, 4 mg after supper, and 8 mg at bedtime or 24 mg as a single dose or divided into 2 or 3 doses upon initiation. Day 2: 20 mg on day 2 administered as 4 mg before breakfast, 4 mg after lunch, 4 mg after supper, and 8 mg at bedtime. Day 3: 16 mg on day 3 administered as 4 mg before breakfast, 4 mg after lunch, 4 mg after supper, and 4 mg at bedtime. Day 4: 12 mg on day 4 administered as 4 mg before breakfast, 4 mg after lunch, and 4 mg at bedtime. Day 5: 8 mg on day 5 administered as 4 mg before breakfast and 4 mg at bedtime. Day 6: 4 mg on day 6 administered as 4 mg before breakfast. lidocaine 5 % adhesive patch,medicated 1 patch topical DAILY Qty: 15 0RF Rx Instructions: leave on most painful area for up to 12 hrs capsaicin 0.035 % adhesive patch,medicated 1 patch topical QID PRN (Reason: pain) 7 Days Qty: 10 0RF No Action pyridoxine (vitamin B6) 50 mg tablet 50 mg PO DAILY 90 Days Qty: 90 1RF cholecalciferol (vitamin D3) 25 mcg (1,000 unit) capsule 25 mcg PO DAILY ascorbic acid (vitamin C) 500 mg tablet 500 mg PO DAILY glucosamine HCl 500 mg tablet 500 mg PO DAILY Rx Instructions: administer with a meal oxycodone-acetaminophen [Percocet] 5-325 mg tablet 1 tab PO BID PRN (Reason: pain) 5 Days Qty: 10 0RF Rx Instructions: MassPat Verified. Partial Fill upon patient request. cyclobenzaprine 5 mg tablet 5 mg PO BID PRN (Reason: Muscle Spasm) 7 Days Qty: 14 0RF Referrals: Hector Archuleta MD [Primary Care Provider, Internal Medicine] - 1 week Clinical Impression: Chronic lumbar radiculopathy Stand Alone Forms: Work/School Release Print Language: Maltese
[2025-01-21] MEDS: Morphine Sulfate Immed Release 15 MG TABLET PO (20:37)
[2025-01-21] MEDS: Lidocaine 4 % Patch ADH..PATCH 1 PATCH TRANSDERMA (20:38)
--- NOTE | 2025-01-21 20:46 | PC.NURSE ---
Provider into assess pt, pt medicated per mar, pt taken to CT Scan. Clint given and pt reposition.
[2025-01-21 20:56] VITALS: BP 161/73; PULSE 56; TEMP 36.7; O2SAT 99
--- NOTE | 2025-01-21 23:43 | PC.NURSE ---
Pt medicated per Mar, reviewed discharge instruction with pt. pt verbalized understanding , no sign of distress upon discharge.
[2025-01-21 23:45] VITALS: BP 161/73; PULSE 56; RESP 20; TEMP 36.7; O2SAT 99
== END 2025-01-21 23:46 | disposition home or self-care (01) ==
PROVIDERS: Physician Assistant Medical; Emergency Provider Emergency Medicine; PCP Family Medicine
DX: M54.16 Radiculopathy, lumbar region (principal); M51.26 Other intervertebral disc displacement, lumbar region; M54.9 Dorsalgia, unspecified
CPT/HCPCS: 36415; 72131; 80048; 80076; 85025; 85652; 86140; 96372; 99284; J1171; J1885; J8540

== ENCOUNTER → 2025-01-21 20:14 | Outpatient (BNV) | payer OTHER, SELFPAY | PROVIDERS: Emergency Provider Emergency Medicine; PCP Family Medicine; Visit Provider Radiology Diagnostic Radiology | DX: M51.360 Other intervertebral disc degeneration, lumbar region with discogenic back pain only (principal) | CPT/HCPCS: 72131 ==

== ENCOUNTER 2025-01-22 15:09 | Outpatient (AMB) | payer OTHER, SELFPAY ==
--- NOTE | 2025-01-22 15:12 | MHC.OFFVIS ---
Intake Visit Reasons: 6m/US Intake Note: Pt presents to the office today for a 6 month follow up/US. 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 He is a patient of Dr. Archuleta. He is seen for following urologic conditions - hematuria with UTI - nephrolithiasis Imaging complete - CT lumbar spine no stones left side, small fragments right side Discussed diet triggers 6m f/u Nephrolithiasis Recurrent Interventions - 03/22 right ureteroscopy with stone basketing Composition - calcium oxalate monohydrate 80% Imaging - Nonobstructing caliceal stone lower pole measuring 2 x 3 x 2 mm previously measuring 8 mm. Left kidney No hydronephrosis calculus or mass. Normal color flow - 01/21 - CT lumbar spine no stones left side, small fragments right side PFSH Medical History Anxiety Hypersomnia Snoring LLQ pain Gross hematuria Lower back pain (~01/2023) Renal calculi IBS (irritable bowel syndrome) Elevated cholesterol Chronic back pain Borderline diabetes Surgical History History of umbilical hernia repair (05/16/21) Hx of colonoscopy (02/16/21) History of esophagogastroduodenoscopy (EGD) (02/16/21) Hx of lithotripsy H/O hernia repair History of laparotomy History of reconstruction of anterior cruciate ligament tear Family History Maternal Uncle Skin cancer Other Mental health disorder Substance use disorder Social History (Updated 01/19/25 @ 14:10 by Ange Adler CMA) Housing: House Are you a primary overnight caregiver to a significant other at home: No Do you presently have visiting nurse or other home services: No Alcohol intake: former Patient Tobacco Use Status: Former Tobacco user Tobacco use type: Cigarette Years Smoked: 14 e-Cigarette/Vaping Use: Never Used Second Hand Smoke Exposure: No service: No Current occupational status: employed 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 Current occupational exposures/hazards: No Cognitive needs: No Hearing needs: No Vision needs: No Review of Systems Const Denies chills and Denies fever(s) Card Reports no additional complaints and Denies syncope Resp Denies cough GI Denies abdominal pain and Denies heartburn Reports as per HPI and Denies change in libido Neuro Denies syncope Psych Denies change in libido Endo Denies change in libido Physical Exam Const General: cooperative, healthy appearing, comfortable and no acute distress Orientation/consciousness: patient oriented x3 HEENT Face and sinus: Yes normal facial exam Mouth: moist mucous membranes Neck Neck: Yes normal visual inspection, Yes full ROM and Yes trachea midline Chest Chest palpation & inspection: normal inspection of the chest Resp Effort & Inspection: normal respiratory effort, able to speak in complete sentences and no respiratory distress GI Inspection: Yes normal to inspection Back/Spine/Pelvis Cervical Spine: normal cervical lordosis Thoracic/Lumbar Spine: thoracic and lumbar spine normal to inspection Skin General skin exam: no rashes or lesions noted Neuro General: patient oriented x3, gait normal, tone normal and moves all extremities Extrem General: Yes normal to inspection and Yes capillary refill normal Assessment & Plan Assessment & Plan (1) Renal calculi: Code(s): N20.0 - Calculus of kidney Category: Medical Plan F/U imaging 6m Orders: Orders XR KUB 6 Months N20.0 - Calculus of kidney Patient Instructions: This note is constructed using voice recognition software. While every effort has been made to ensure accuracy aviation survival technician errors may have been included. Imaging studies, laboratory and physical exam results were discussed and reviewed in detail. No major barriers to patient understanding were identified. An opportunity to ask questions regarding the treatment plan was provided. All questions were answered. The patient expressed understanding and agreement with the above treatment plan. The patient is aware they should contact our office by phone for worsening of their current condition or the appearance of new urologic symptoms. Compliance is encouraged with any medications and followup testing that is ordered. It is a privilege to participate in the urologic care of your patient. If you have any questions or concerns regarding treatment for the above conditions, or other urologic issues, please do not hesitate to contact me. The office telephone contact is [phone]. Sincerely, Dr Bill Garrison MD, [facility] - Urology Compassionate Specialist Care for the Genitourinary System Coding Level of Care Code Est Pt Level 3 (05202) Complex EM visit Add On G2211 Diagnoses Renal calculi N20.0
--- OUTSIDE RECORDS SUMMARY | 2025-01-22 15:43 | XMS_ITS | Clinical Summary ---
Author Organization [facility] Address [address] [place] [phone] Phone Care Team Providers Care Digester Hand Name Role Phone Neeraj Guerrero DO Primary Care Provider [phone] Allergies No known active allergies Medications cyclobenzaprine [...] topic Medical Devices Not on file Insurance 1d4 [employer] PPO CIGNA CARELINK PPO CIGNA CARELINK PPO CIGNA CARELINK PPO CIGNA CARELINK PPO CIGNA CARELINK PPO CIGNA CARELINK PPO CIGNA [employer]ELINK PPO CIGNA CARELINK PPO [employer] Care Teams Digester Hand Relationship Specialty Start Date End Date Neeraj Guerrero DO [address] [place] [address] PCP - General Internal Medicine 04/12/20 Additional Source Comments The information contained in this document represents components of the legal health record. It is not the complete legal health record.[facility]
== END 2025-01-22 15:39 | disposition home or self-care (01) ==
LOC: HO.HUSH 15:10
PROVIDERS: PCP Family Medicine; Visit Provider Urology
DX: N20.0 Calculus of kidney (principal)
CPT/HCPCS: 99213

== ENCOUNTER 2025-02-02 09:24 | Outpatient (REF) | payer OTHER, SELFPAY ==
--- OUTSIDE RECORDS SUMMARY | 2025-02-02 10:36 | XMS_ITS | Clinical Summary ---
Author Organization [facility] Address [address] [facility] [address] [place] [phone] Phone Care Team Providers Care Automobile Sales Representative Name Role Phone Neeraj Guerrero DO Primary Care Provider [phone]- [phone] Allergies No known active allergies Medications cyclobenzaprine [...] topic Medical Devices Not on file Insurance [employer] PPO CIGNA CARELINK PPO CIGNA CARELINK PPO CIGNA CARELINK PPO CIGNA CARELINK PPO CIGNA CARELINK PPO CIGNA CARELINK PPO CIGNA CARELINK PPO CIGNA CARELINK PPO [employer] Care Teams Automobile Sales Representative Relationship Specialty Start Date End Date Neeraj Guerrero DO [address] [place] [address] PCP - General Internal Medicine 04/12/20 Additional Source Comments The information contained in this document represents components of the legal health record. It is not the complete legal health record.[facility]
[2025-02-02 11:19] LABS: Alanine Aminotransferase 39 U/L (0-40); Albumin Level 4.6 g/dL (3.5-5.0); Alkaline Phosphatase 59 U/L (39-117); Anion Gap 11 (12-20); Aspartate Amino Transferase 32 U/L (5-37); Blood Urea Nitrogen 20 mg/dL (9-16); Calcium 9.1 mg/dL (8.4-10.2); Carbon Dioxide 31 mmol/L (22-29); Chloride 104 mmol/L (96-108); Cholesterol 227 mg/dL (<200); Estimated Glomerular Filt Rate > 60; HDL Cholesterol 48 mg/dL (>40); Potassium 4.3 mmol/L (3.3-5.1); Sodium 142 mmol/L (135-145); Total Protein 6.9 g/dL (6.5-8.0); Triglycerides 331 mg/dL (<150)
== END 2025-02-02 09:25 | disposition home or self-care (01) ==
LOC: HO.LAB 09:24
PROVIDERS: PCP Family Medicine; Visit Provider Family Medicine
DX: Z00.00 Encounter for general adult medical examination without abnormal findings (principal); Z13.6 Encounter for screening for cardiovascular disorders
CPT/HCPCS: 36415; 80053; 80061

== ENCOUNTER 2025-02-05 09:46 | Outpatient (AMB) | payer OTHER, SELFPAY ==
--- NOTE | 2025-02-05 09:51 | A.OFFPC_ITS ---
Vital Signs 02/05/25 09:56 Height 5 ft 9 in Weight 172 lb 6 oz BMI 25.5 BP 122/78 Blood Pressure Location Rt brachial Position Sitting Respiration 18 Pulse 75 Pulse Source Pulse Oximeter Temp 97.9 F Temp Source Temporal Artery Scan Pulse Oximetry (%) 97 Oxygen Delivery Method Room Air Intake Visit Reasons: f/u back pain Intake Note: Teddy presents in the office today for a follow up to back pain etc. Allergies Latex, Natural Rubber Allergy (Severe, Verified 02/05/25 09:54) Blister Fish Containing Products Adverse Reaction (Intermediate, Verified 02/05/25 09:54) nausea Medication List - Last Reconciled 02/05/25 by Hector Archuleta MD ascorbic acid (vitamin C) 500 mg PO DAILY capsaicin 0.035% 1 patch topical QID PRN 7 days cholecalciferol (vitamin D3) 25 mcg PO DAILY cyclobenzaprine 5 mg PO BID PRN 7 days diazepam (Valium) 2 mg PO DAILY PRN 10 days glucosamine HCl 500 mg PO DAILY lidocaine 5% 1 patch topical DAILY methylprednisolone (Medrol (Jasiel)) 4 mg PO DAILY pyridoxine (vitamin B6) 50 mg PO DAILY 90 days Tobacco use date assessed: 02/05/25 Dental Screening Dental Screen Date: 02/05/25 Did you have a dental visit in the last 12 months?: Yes Did you have a dental problem in the last 6 months where you did not have access to dental care?: No Was dental information given to patient?: Patient has dentist HPI f/u back pain HPI Details 54 y/o male presents to f/u back pain. Had seen ED 01/21/25 - was prescribed Valium, capsaicin ointment patches. They note he would likely benefit from physical therapy. Pain seems to be slightly improving with PT. [facility], [facility] Medical History (Updated 01/22/25 @ 15:32 by Bill Garrison MD) Exposure to COVID-19 virus Abdominal pain Hematuria Anxiety Hypersomnia Snoring LLQ pain Gross hematuria Lower back pain (~01/2023) Renal calculi IBS (irritable bowel syndrome) Elevated cholesterol Chronic back pain Borderline diabetes Surgical History History of umbilical hernia repair (05/16/21) Hx of colonoscopy (02/16/21) History of esophagogastroduodenoscopy (EGD) (02/16/21) Hx of lithotripsy H/O hernia repair History of laparotomy History of reconstruction of anterior cruciate ligament tear Family History Maternal Uncle Skin cancer Other Mental health disorder Substance use disorder Social History (Updated 02/05/25 @ 09:55 by Ange Adler CMA) Housing: House Are you a primary wound care technician to a significant other at home: No Do you presently have visiting nurse or other home services: No Alcohol intake: former Patient Tobacco Use Status: Former Tobacco user Tobacco use type: Cigarette Years Smoked: 14 e-Cigarette/Vaping Use: Never Used Second Hand Smoke Exposure: No service: No Current occupational status: employed 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 Current occupational exposures/hazards: No Cognitive needs: No Hearing needs: No Vision needs: No Questionnaire Thrive Questionnaire Date Thrive assessed: 11/05/24 I am a: Patient What is your living situation today?: I have a steady place to live Within the past 12 months, did the food you bought not last and you didn't have the money to get more?: Never true Within the past 12 months, did you worry whether your food would run out before you got money to buy more?: Never true Do you have trouble paying for medicines?: No Do you have trouble getting transportation to medical appointments?: No Do you have trouble paying your heating and electricity bill?: No Do you have trouble taking care of your child, family member or friend?: No Do you have trouble with day-to-day activities such as bathing, preparing meals, shopping, managing finances, etc.?: No Are you currently unemployed and looking for a job?: No Are you interested in more education?: Yes Please select the resources that you would like help with: None Currently or been in a relationship where the following occur: No concerns reported THRIVE Score: 0 LESLY-7 AMB Questionnaire LESLY-7 Date LESLY - 7 assessed: 11/07/23 Source: Developed by Drs. Dylan Carr, Esperanza Adames, Avery Chin and colleagues, with an educational jessica from [employer]. Review of Systems Const Denies chills, Denies fatigue, Denies fever(s), Denies headache(s) and Denies weakness ENT Denies dizziness and Denies headache(s) Card Denies dyspnea Resp Denies cough, Denies dyspnea, Denies wheezing and Denies other (shortness of breath) Musc Denies numbness and Denies tingling Neuro Denies dizziness, Denies headache(s), Denies numbness, Denies tingling and Denies weakness Psych Denies anxiety and Denies depression Endo Denies fatigue Aller/Immun Denies wheezing Physical exam (Primary Care) Vital Signs: Last Vital Signs Temp 97.9 F 02/05/25 09:56 Pulse 75 02/05/25 09:56 Resp 18 02/05/25 09:56 BP 122/78 02/05/25 09:56 Pulse Ox 97 02/05/25 09:56 Oxygen Delivery Method Room Air 02/05/25 09:56 BMI result Body Mass Index 25.5 Tobacco/Smoking Status: Tobacco use Status Tobacco use date assessed 02/05/25 02/05/25 09:59 Patient Tobacco Use Status Former Tobacco user 02/05/25 09:55 Tobacco use type Cigarette 02/05/25 09:55 e-Cigarette/Vaping Use Never Used 02/05/25 09:55 Thrive Assessment: Date of Thrive Assessment Date Thrive assessed 11/05/24 02/05/25 09:53 Currently or been in a relationship where the following occur: No concerns reported Const General: well developed; No acute distress Nutritional Appearance: well nourished Orientation/consciousness: patient oriented x3 HENMT Head: Yes normocephalic and Yes atraumatic Eyes General: appearance normal, both eyes and all related structures Pupils: Equal, round and reactive pupils present EOM: EOMs intact bilaterally Resp Effort & Inspection: normal respiratory effort Neuro General: patient oriented x3 and gait normal Cranial nerves: Yes Equal, round and reactive pupils present Psych Affect: normal affect Coding Level of Care Code Est Pt Level 3 (66141) Diagnoses Chronic back pain M54.9; G89.29 Assessment & Plan Assessment & Plan (1) Chronic back pain: Code(s): M54.9 - Dorsalgia, unspecified; G89.29 - Other chronic pain Category: Medical Plan: Patient has ongoing moderately severe will back pain with radiation down left leg Does have some weakness at left leg as well as numbness and tingling Mild improvements with physical therapy. Will saddle anesthesia or other red flags Given weakness however will make a referral to ortho Patient will continue current medication regimen and physical therapy Call or return to office sooner if any new, concerning symptoms Orders: Referrals Orthopedics Referral M54.42 - Lumbago with sciatica, left side Medications: Changed From cyclobenzaprine 5 mg PO BID 7 days PRN 14 tabs 0RF Muscle Spasm To cyclobenzaprine Take 1 tab AM and 1 tab at 3 PM prn pain/spasm. 5 mg PO BID PRN 14 tabs 0RF Muscle Spasm 7 days From diazepam (Valium) 2 mg PO DAILY 10 days PRN 10 tabs 0RF spasms To diazepam (Valium) 2 mg PO BEDTIME PRN 10 tabs 0RF spasms 10 days Refilled celecoxib 200 mg PO BID PRN 60 caps 0RF pain 30 days Discontinued oxycodone-acetaminophen 5-325 mg (Percocet) MassPat Verified. Partial Fill upon patient request. Discontinued Reason: Doctor's Order 1 tab PO BID 5 days PRN 10 tabs 0RF pain
[2025-02-05 09:56] VITALS: BP 122/78; PULSE 75; RESP 18; TEMP 36.6; O2SAT 97; BMI 25.5
--- OUTSIDE RECORDS SUMMARY | 2025-02-05 10:31 | XMS_ITS | Clinical Summary ---
Author Organization [facility] Address [address] [place] [id number] Phone Care Team Providers Care Build Engineer Name Role Phone Neeraj Guerrero DO Primary Care Provider [phone]- [phone] Allergies No known active allergies Medications cyclobenzaprine [...] topic Medical Devices Not on file Insurance [email or web address] PPO CIGNA CARELINK PPO CIGNA [employer] PPO CIG[employer] PPO CIG[employer] PPO CIGNA [employer]INK PPO CIGNA [employer]INK PPO CIGNA CARELINK PPO CIGNA CARELINK PPO [employer] Care Teams Build Engineer Relationship Specialty Start Date End Date Neeraj Guerrero DO [address] [place] [address] PCP - General Internal Medicine 04/12/20 Additional Source Comments The information contained in this document represents components of the legal health record. It is not the complete legal health record.[facility]
== END 2025-02-05 10:49 | disposition home or self-care (01) ==
LOC: HO.HMCFM 09:47
PROVIDERS: PCP Family Medicine; Visit Provider Family Medicine
DX: M54.9 Dorsalgia, unspecified (principal); G89.29 Other chronic pain

== ENCOUNTER 2025-03-12 13:57 | Outpatient (AMB) | payer OTHER, SELFPAY ==
--- NOTE | 2025-03-12 14:10 | A.OFFPC_ITS ---
Vital Signs 03/12/25 14:15 Height 5 ft 9 in Weight 179 lb 8 oz BMI 26.5 BP 122/70 Blood Pressure Location Lt brachial Position Sitting Respiration 17 Pulse 95 Pulse Source Pulse Oximeter Temp 97.9 F Temp Source Temporal Artery Scan Pulse Oximetry (%) 98 Oxygen Delivery Method Room Air Intake Visit Reasons: f/u back pain Intake Note: Teddy presents in the office for a follow up to his back pain and going over his lab results from January. Patient would like a refill of the cyclobenzaprine. Allergies Latex, Natural Rubber Allergy (Severe, Verified 03/12/25 14:12) Blister Fish Containing Products Adverse Reaction (Intermediate, Verified 03/12/25 1 4:12) nausea Medication List - Last Reconciled 03/12/25 by Hector Archuleta MD ascorbic acid (vitamin C) 500 mg PO DAILY celecoxib 200 mg PO BID PRN 30 days cholecalciferol (vitamin D3) 25 mcg PO DAILY cyclobenzaprine 5 mg PO BID PRN 7 days glucosamine HCl 500 mg PO DAILY pyridoxine (vitamin B6) 50 mg PO DAILY 90 days Tobacco use date assessed: 03/12/25 Dental Screening Dental Screen Date: 03/12/25 Did you have a dental visit in the last 12 months?: Yes Did you have a dental problem in the last 6 months where you did not have access to dental care?: No Was dental information given to patient?: Patient has dentist HPI f/u back pain HPI Details 54 y/o male presents to f/u back pain. Pt had ongoing moderately severe back pain with radiation down L leg. Did have some weakness at L leg as well as numbness/tingling. Had mild improvements with PT. Labs had been drawn 02/02/25. Reviewed labs with pt. Fasting glucose 101. Liver enzymes improved - AST 32, ALT 39. Triglycerides 331. TC 227. LDL 113. HDL 48. [facility] Medical History (Updated 03/12/25 @ 14:42 by Kristian Dotson) Exposure to COVID-19 virus Abdominal pain Hematuria Anxiety Hypersomnia Snoring LLQ pain Gross hematuria Lower back pain (~01/2023) Renal calculi IBS (irritable bowel syndrome) Elevated cholesterol Chronic back pain Borderline diabetes Surgical History History of umbilical hernia repair (05/16/21) Hx of colonoscopy (02/16/21) History of esophagogastroduodenoscopy (EGD) (02/16/21) Hx of lithotripsy H/O hernia repair History of laparotomy History of reconstruction of anterior cruciate ligament tear Family History Maternal Uncle Skin cancer Other Mental health disorder Substance use disorder Social History (Updated 03/12/25 @ 14:14 by Ange Adler CMA) Housing: House Are you a primary director of critical care to a significant other at home: No Do you presently have visiting nurse or other home services: No Alcohol intake: former Patient Tobacco Use Status: Former Tobacco user Tobacco use type: Cigarette Years Smoked: 14 e-Cigarette/Vaping Use: Never Used Second Hand Smoke Exposure: No service: No Current occupational status: employed 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 Current occupational exposures/hazards: No Cognitive needs: No Hearing needs: No Vision needs: No Questionnaire Thrive Questionnaire Date Thrive assessed: 11/05/24 I am a: Patient What is your living situation today?: I have a steady place to live Within the past 12 months, did the food you bought not last and you didn't have the money to get more?: Never true Within the past 12 months, did you worry whether your food would run out before you got money to buy more?: Never true Do you have trouble paying for medicines?: No Do you have trouble getting transportation to medical appointments?: No Do you have trouble paying your heating and electricity bill?: No Do you have trouble taking care of your child, family member or friend?: No Do you have trouble with day-to-day activities such as bathing, preparing meals, shopping, managing finances, etc.?: No Are you currently unemployed and looking for a job?: No Are you interested in more education?: Yes Please select the resources that you would like help with: None Currently or been in a relationship where the following occur: No concerns reported THRIVE Score: 0 LESLY-7 AMB Questionnaire LESLY-7 Date LESLY - 7 assessed: 11/07/23 Source: Developed by Drs. Dylan Carr, Esperanza Adames, Avery Chin and colleagues, with an educational jessica from [employer]. Review of Systems Const Denies chills, Denies fatigue, Denies fever(s), Denies headache(s) and Denies weakness ENT Denies dizziness and Denies headache(s) Card Denies dyspnea Resp Denies cough, Denies dyspnea, Denies wheezing and Denies other (shortness of breath) Musc Denies numbness and Denies tingling Neuro Denies dizziness, Denies headache(s), Denies numbness, Denies tingling and Denie s weakness Psych Denies anxiety and Denies depression Endo Denies fatigue Aller/Immun Denies wheezing Physical exam (Primary Care) Vital Signs: Last Vital Signs Temp 97.9 F 03/12/25 14:15 Pulse 95 03/12/25 14:15 Resp 17 03/12/25 14:15 BP 122/70 03/12/25 14:15 Pulse Ox 98 03/12/25 14:15 Oxygen Delivery Method Room Air 03/12/25 14:15 BMI result Body Mass Index 26.5 Tobacco/Smoking Status: Tobacco use Status Tobacco use date assessed 03/12/25 03/12/25 14:18 Patient Tobacco Use Status Former Tobacco user 03/12/25 14:14 Tobacco use type Cigarette 03/12/25 14:14 e-Cigarette/Vaping Use Never Used 03/12/25 14:14 Thrive Assessment: Date of Thrive Assessment Date Thrive assessed 11/05/24 03/12/25 14:11 Currently or been in a relationship where the following occur: No concerns reported Const General: well developed; No acute distress Nutritional Appearance: well nourished Orientation/consciousness: patient oriented x3 [facility] Head: Yes normocephalic and Yes atraumatic Eyes General: appearance normal, both eyes and all related structures Pupils: Equal, round and reactive pupils present EOM: EOMs intact bilaterally Resp Effort & Inspection: normal respiratory effort Auscultation: clear to auscultation bilaterally Cardio Rate: regular rate Rhythm: regular rhythm Heart sounds: S1 normal heart sound present, S2 normal heart sound present, no gallops, no murmurs and no rubs Neuro General: patient oriented x3 and gait normal Cranial nerves: Yes Equal, round and reactive pupils present Psych Affect: normal affect Coding Level of Care Code Est Pt Level 4 (63358) Diagnoses Back pain M54.9 Hyperlipidemia E78.5 Pre-diabetes R73.03 Elevated liver enzymes R74.8 Assessment & Plan Assessment & Plan (1) Back pain: Code(s): M54.9 - Dorsalgia, unspecified Category: Medical Plan: Gradually improving with physical therapy He has been tolerating ibuprofen Cyclobenzaprine at bedtime is helping - will continue this Continue physical therapy as well (2) Hyperlipidemia: Code(s): E78.5 - Hyperlipidemia, unspecified Category: Medical Plan: Patient has not been able to exercise consistently or with prior intensity due to back pain Triglycerides have been high and he notes that he has been eating a lot of sugary foods. Continue to work at diet and begin exercising as tolerated Will continue to follow (3) Pre-diabetes: Code(s): R73.03 - Prediabetes Category: Medical Plan: Fasting blood sugar 101 Continue to work at a diet low in sugars and starches We can follow-up on this at his next visit (4) Elevated liver enzymes: Code(s): R74.8 - Abnormal levels of other serum enzymes Category: Medical Plan: Liver enzymes have improved with good hydration Encouraged exercise weight loss & we will continue to monitor Orders: Orders Comprehensive [place]. Panel Fast Today R74.8 - Abnormal levels of other serum enzymes, Z00.00 - Encounter for general adult medical examination without abnormal findings Hemoglobin A1c Today R73.01 - Impaired fasting glucose Lipid Panel Today E78.5 - Hyperlipidemia, unspecified, Z00.00 - Encounter for general adult medical examination without abnormal findings Medications: Changed From cyclobenzaprine Take 1 tab AM and 1 tab at 3 PM prn pain/spasm. 5 mg PO BID 7 days PRN 14 tabs 0RF Muscle Spasm To cyclobenzaprine 5 mg PO .qhs PRN 30 tabs 0RF Muscle Spasm 30 days
[2025-03-12 14:15] VITALS: BP 122/70; PULSE 95; RESP 17; TEMP 36.6; O2SAT 98; BMI 26.5
--- OUTSIDE RECORDS SUMMARY | 2025-03-12 20:42 | XMS_ITS | Clinical Summary ---
Author Organization [facility] Address [address] [place] [phone] Phone Care Team Providers Care Rd Lab Technician Name Role Phone Neeraj Guerrero DO Primary Care Provider [phone]- [phone] Allergies No known active allergies Medications cyclobenzaprine [...] - 2024-2 6 season) 2024 09/13/2020, 08/17/2020 RSV VACCINE (1 - 1-dose 75+ series) 2044 HEPATITIS A VACCINES Aged Out No long er eligible based on patient's age to complete this topic HIB VACCINES Aged Out No longer eligi ble based on patient's age to complete this topic IPV VACCINES Aged Out No longer eligi ble based on patient's age to complete this topic MENINGOCOCCAL VACCINES (ACWY) Aged Out No longer eligible based on patient's age to complete this topic MENINGOCOCCAL VACCINES (B) Aged Out N o longer eligible based on patient's age to complete this topic Medical Devices Not on file Insurance [employer] PPO CIGNA CARELINK PPO CIGNA CARELINK PPO CIGNA CARELINK PPO [employer]IG[employer]INK PPO CIGNA CARELINK PPO [employer]IG[employer]INK PPO CIGNA [employer]INK PPO CIGNA CARELINK PPO [facility] Care Teams Rd Lab Technician Relationship Specialty Start Date End Date Neeraj Guerrero DO [address] [place] [address] PCP - General Internal Medicine 04/12/20 Additional Source Comments The information contained in this document represents components of the legal health record. It is not the complete legal health record.[facility]
== END 2025-03-12 14:47 | disposition home or self-care (01) ==
LOC: HO.HMCFM 13:58
PROVIDERS: PCP Family Medicine; Visit Provider Family Medicine
DX: M54.9 Dorsalgia, unspecified (principal); E78.5 Hyperlipidemia, unspecified; R73.03 Prediabetes; R74.8 Abnormal levels of other serum enzymes

== ENCOUNTER 2025-04-26 11:28 | Outpatient (REF) | payer OTHER, SELFPAY ==
--- NOTE | ~2025-04-26 | XR_ITS ---
EXAMINATION: XR HIP 2 OR MORE VIEWS BILATERAL HISTORY: OSTEOARTHRITIS OF HIP COMPARISON: There are no prior studies available for comparison. FINDINGS: A single AP view of the pelvis and two views of each hip are submitted. Osseous mineralization is normal. There is no fracture or dislocation. The joint spaces are maintained. The soft tissues are unremarkable. XR/XR hip BI w [id number] IMPRESSION: Unremarkable examination of the bilateral hips. Electronically signed by: Dylan Lester MD 04/26/2025 12:18 PM [facility]
--- OUTSIDE RECORDS SUMMARY | 2025-04-26 13:27 | XMS_ITS | Clinical Summary ---
Author Organization [facility] Address [address] [place] [phone] Phone Care Team Providers Care Quality Assurance Practice Manager Name Role Phone Neeraj Guerrero Primary Care Provider +1- [phone] Allergies No known active allergies Medications cyclobenzaprine [...] topic Medical Devices Not on file Insurance [employer] PPO CIGNA CARELINK PPO [employer]IG[employer] PPO [employer]IG[employer] PPO [employer]IG[employer]INK PPO [employer]IG[employer]INK PPO [employer]IG[employer] PPO CIGNA [employer]INK PPO CIGNA CARELINK PPO [employer] Care Teams Quality Assurance Practice Manager Relationship Specialty Start Date End Date Neeraj Guerrero DO [address] [place] [address] PCP - General Internal Medicine 04/12/20 Additional Source Comments The information contained in this document represents components of the legal health record. It is not the complete legal health record.[facility]
== END 2025-04-26 11:29 ==
LOC: HO.XRAY 11:28
PROVIDERS: PCP Family Medicine; Visit Provider Nurse Practitioner Women's Health
DX: M16.0 Bilateral primary osteoarthritis of hip (principal)
CPT/HCPCS: 73521

== ENCOUNTER → 2025-04-26 11:33 | Outpatient (BNV) | payer OTHER, SELFPAY | PROVIDERS: PCP Family Medicine; Visit Provider Radiology Diagnostic Radiology | DX: M16.0 Bilateral primary osteoarthritis of hip (principal) | CPT/HCPCS: 73521 ==